=== PATIENT | male | born 1990 | race Caucasian/White ===

== ENCOUNTER 2021-04-28 15:14 | Outpatient (REF) | payer OTHER, SELFPAY ==
[2021-04-28 15:55] LABS: COVID-19 Test Negative (Negative); IDNOW Serial# 9DD0AD1C
== END 2021-04-28 15:15 | disposition home or self-care (01) ==
LOC: HO.LAB 15:14
PROVIDERS: Visit Provider Internal Medicine
DX: Z20.822 Contact with and (suspected) exposure to COVID-19 (principal)
CPT/HCPCS: 36415; 87635; C9803

== ENCOUNTER 2021-09-16 11:33 | Outpatient (REF) | payer MEDICAID, SELFPAY ==
[2021-09-16 14:06] LABS: COVID-19 Test Positive (Negative)
== END 2021-09-16 11:34 | disposition home or self-care (01) ==
LOC: HO.LAB 11:33
PROVIDERS: Visit Provider Internal Medicine
DX: Z20.822 Contact with and (suspected) exposure to COVID-19 (principal)
CPT/HCPCS: 87635; C9803

== ENCOUNTER 2023-05-12 14:19 | Emergency (ER) | payer MEDICAID, SELFPAY ==
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
[2023-05-12 14:35] VITALS: BP 138/98; PULSE 100; O2SAT 98
[2023-05-12 15:40] VITALS: BP 146/93; PULSE 102; RESP 19; TEMP 35.9; O2SAT 94; BMI 40.3
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
== END 2023-05-12 17:50 | disposition left against medical advice (07) ==
PROVIDERS: Emergency Provider Emergency Medicine
DX: Z04.1 Encounter for examination and observation following transport accident (principal)
CPT/HCPCS: 72070; 72100; 99281; 99283

== ENCOUNTER 2024-01-31 22:22 | Emergency (ER) | payer MEDICAID, SELFPAY ==
--- NOTE | ~2024-01-31 | CT_ITS ---
EXAMINATION: CT ABDOMEN AND PELVIS WITHOUT CONTRAST CLINICAL INFORMATION: Lower abdominal pain COMPARISON: None available. TECHNIQUE: Multidetector volumetric imaging was performed from the superior aspect of the liver through the pubic symphysis. Sagittal and coronal reformatted images were obtained on the technologist's workstation. This CT examination was performed using dose optimization techniques as appropriate, variously including the following: *Automated exposure control *Adjustment of mA and/or kV according to patient size (this includes techniques or standardized protocols for targeted exams where dose is matched to indication/reason for exam; i.e. extremities or head) *Use of iterative reconstruction technique DLP: 887 mGy-cm FINDINGS: LUNG BASES: The visualized lung bases are unremarkable. LIVER, GALLBLADDER, AND BILIARY TREE: The liver is enlarged measuring 18.8 cm in cephalocaudad dimension. Attenuation is heterogeneous -for example the superior portion of the left lobe measures 57 Hounsfield units while the more central portion measures 42 Hounsfield units.. Hepatic steatosis is suspected. No focal hepatic lesion or biliary ductal dilatation is present. The gallbladder is unremarkable with no evidence of radiopaque gallstones, gallbladder wall thickening, or obvious pericholecystic inflammatory changes. PANCREAS: Unremarkable. SPLEEN: Unremarkable. ADRENAL GLANDS: Nodular thickening of both adrenal glands which measured fat density consistent with adenomatous hypertrophy. No worrisome adrenal mass is present. KIDNEYS AND URETERS: The kidneys are normal in size, shape, and attenuation. No hydronephrosis, hydroureter, or calculi seen. No perinephric stranding. BLADDER: Unremarkable. GASTROINTESTINAL TRACT: There is an area of marked edematous change in the very proximal sigmoid with marked pericolonic inflammatory change in the surrounding fat. No extraluminal air is seen. No drainable collection is identified. The small and large bowel are otherwise unremarkable. The appendix is unremarkable. ABDOMINAL WALL: No significant hernia is appreciated. LYMPH NODES: Normal. VASCULAR: Unremarkable. PELVIC VISCERA: The prostate and seminal vesicles are unremarkable. OSSEOUS STRUCTURES: Unremarkable. CT/CT abdomen pelvis wo IV con IMPRESSION: 1. Acute uncomplicated sigmoid diverticulitis. 2. Incidental note made of enlarged fatty liver and adenomatous hypertrophy of the adrenal glands. Fleischner guidelines were followed.
[2024-01-31 22:34] VITALS: BP 156/108; PULSE 106; RESP 18; TEMP 37.1; O2SAT 97; BMI 40.5
[2024-01-31 22:54] LABS: MANUAL DIFF FLAG NO
[2024-01-31 22:56] LABS: Basophils Absolute Auto 0.1 X10*3/uL (0.0-0.2); Basophils Percent Auto 0.6 % (0-2); Eosinophils Absolute Auto 0.5 X10*3/uL (0.0-0.4); Eosinophils Percent Auto 3.5 % (0-4); Hematocrit 44.4 % (42.0-52.0); Hemoglobin 15.6 g/dl (14.0-18.0); Imm Gran Abs Auto 0.07 X10*3/uL (0.00-0.03); Imm Gran Pct Auto 0.5 % (0.0-0.4); Lymphocytes Percent Auto 27.1 % (20-40); Mean Corpuscular HGB Conc 35.1 g/dl (31.0-36.0); Mean Corpuscular Hemoglobin 30.2 pg (27.0-33.0); Mean Platelet Volume 8.5 fL (9.4-12.4); Monocytes Absolute Auto 0.8 X10*3/uL (0.1-1.2); Monocytes Percent Auto 5.2 % (2-11); Neutrophils Absolute Auto 9.2 x10*3/uL (2.0-8.3); Neutrophils Percent Auto 63.1 % (45-73); Platelet Count 362 X10*3/uL (160-400); Red Blood Count 5.16 X10*6/uL (4.60-5.80); White Blood Count 14.7 X10*3/uL (4.8-10.8)
[2024-01-31 23:09] LABS: Alanine Aminotransferase 25 U/L (0-40); Albumin Level 4.3 g/dL (3.5-5.0); Alkaline Phosphatase 91 U/L (39-117); Anion Gap 16 (12-20); Aspartate Amino Transferase 17 U/L (5-37); Bilirubin Direct 0.1 mg/dL (0.0-0.5); Bilirubin Total 0.3 mg/dL (0.0-1.0); Blood Urea Nitrogen 16 mg/dL (9-16); Calcium 8.9 mg/dL (8.4-10.2); Carbon Dioxide 21 mmol/L (22-29); Chloride 105 mmol/L (96-108); Creatinine Clr Calc Pharmacy 82.2; Estimated Glomerular Filt Rate 46; Glucose Random 205 mg/dL (60-115); Lipase 52 U/L (8-78); Potassium 4.1 mmol/L (3.3-5.1); Sodium 138 mmol/L (135-145); Total Protein 7.4 g/dL (6.5-8.0)
[2024-01-31] MEDS: 0.9 % Sodium Chloride 1,000 ML 999 ML IV (23:50)
--- NOTE | 2024-01-31 23:59 | ED.GENADULT ---
HPI - General Adult General Chief complaint: Abdominal Pain Stated complaint: lower abd pain Time Seen by Provider: 01/31/24 23:32 Source: patient, RN notes reviewed and old records reviewed Mode of arrival: ambulatory Limitations: no limitations History of Present Illness ED Provider: Chandu LIU narrative: 34-year-old male presents for evaluation of lower abdominal pain. Patient reports he feels constipated but does has some watery bowel movements. He states for the last 2 weeks he has had lower abdominal pain that radiates to his perineum and rectum He was seen at [address] He reports having had a prostate exam and was told his prostate is enlarged He was given Bactrim b.i.d. for 4 weeks and is in the middle of that prescription He reports that his symptoms have not improved He denies any fevers, chills He denies any history abdominal surgery Related Data Previous Rx's ?Medication ?Instructions ?Recorded amoxicillin 875 mg-potassium 1 tab PO Q12H #14 tabs 02/01/24 clavulanate 125 mg tablet Allergies Allergy/AdvReac Type Severity Reaction Status Date / Time No Known Allergies Allergy Verified 01/31/24 22:36 Review of Systems Constitutional: Constitutional: Denies body ache(s), Denies chills and Denies fever(s) Eyes: Eyes: Denies blurry vision Cardiovascular: Cardiovascular: Denies chest pain and Denies dyspnea Respiratory: Respiratory: Denies cough and Denies dyspnea Gastrointestinal: Gastrointestinal: Reports abdominal pain, Denies nausea and Denies vomiting Genitourinary: Genitourinary: Reports oliguria, Reports genital pain, Denies penile discharge, Denies scrotal swelling and Denies testicular mass Musculoskeletal: Musculoskeletal: Denies back pain [facility] Social History Social History Smoked in Last 30 Days: Yes Substance Use Type: Marijuana Substance Use Frequency: Chronic Longstanding Advance Directives: No Advance Directives Information Provided: No Do you have a plan to hurt others: No Plan Physical Exam ED Vital Signs: Vital Signs - 24 hr 01/31/24 22:34 02/01/24 00:47 Temperature 98.8 F 98.9 F Pulse Rate 106 H 113 H Respiratory Rate 18 20 Blood Pressure 156/108 H 164/97 H Pulse Oximetry 97 98 Oxygen Delivery Method Room Air Room Air BMI result Body Mass Index 40.5 Const General: healthy appearing, comfortable, no acute distress, alert and awake Nutritional Appearance: well nourished Orientation/consciousness: patient oriented x3 HENMT Head: Yes normocephalic and Yes atraumatic Eyes Eyelids: Yes eyelids normal Conjunctivae: conjunctivae normal Sclerae: sclerae normal Corneas: corneas normal Pupils: Equal, round and reactive pupils present EOM: EOMs intact bilaterally Neck Neck: Yes full ROM Resp Effort & Inspection: normal respiratory effort, able to speak in complete sentences and not labored GI Other: Soft, obese abdomen. The patient is tender in the suprapubic region and bilateral lower abdomen. Inspection: No distended Palpation (GI): Soft to palpation, not firm, Tenderness to palpation present (GI), no guarding and not rigid Skin General skin exam: elasticity normal Neuro General: patient oriented x3 Cranial nerves: Yes Equal, round and reactive pupils present and Yes Bilaterally intact EOM present Cognition (Neuro): normal cognition Extrem Other: Moving all extremities well without any obvious deformities Course Reevaluation(s) Reevaluation #1: Patient's CT scan shows acute uncomplicated sigmoid diverticulitis. This is consistent with the patient's lower abdominal pain with constipation/diarrhea. We will treat with Augmentin b.i.d. x7 days. He is encouraged to have a liquid diet, return for new or worsening symptoms Time: 00:54 Medications Administered Discontinued Medications Generic Name Dose Route Start Last Admin Trade Name Freq PRN Reason Stop Dose Admin Sodium Chloride 1,000 mls @ 999 mls/hr 01/31/24 23:45 01/31/24 23:50 Ns IV 02/01/24 00:45 999 mls/hr .Q1H1M KATE Administration Morphine Sulfate 4 mg 02/01/24 00:16 02/01/24 00:21 Morphine Sulfate 4 Mg/Ml Cartridge IVPUSH 02/01/24 00:17 4 mg ONCE ONE Administration Protocol Ondansetron HCl 4 mg 02/01/24 00:16 02/01/24 00:21 Ondansetron Hcl 4 Mg/2 Ml Vial IVPUSH 02/01/24 00:17 4 mg ONCE ONE Administration Medical Decision Making Medical Decision Making MDM Narrative: 34-year-old male presents for evaluation abdominal pain with constipation and difficulty urinating. Symptoms have been progressive for 2 weeks. Is tender in the lower abdomen. He is currently being treated for possibly prostatitis with Bactrim. He does have a leukocytosis of 14.7 K. his chemistries are significant for a creatinine to 1.70. The patient denies any known history of kidney disease. His glucose is elevated to 205 But he has no anion gap. Plan for CT abdomen pelvis to evaluate for obstructive uropathy given the elevated creatinine difficulty urinating. Less likely to be small-bowel obstruction. Prostatitis is also on the differential Differential Diagnosis Differential Diagnoses: The differential diagnosis associated with the presentation includes Obstructive uropathy Abdominal pain Constipation Bowel obstruction Dehydration BPH Admission/Observation Consideration of admission/observation: Escalation of care including admission/observation considered Considered admission for diverticulitis but the patient is not septic. He is well-appearing and able to tolerate p.o. we will discharge with oral antibiotics Lab Data MDM Lab Attestation statement: I reviewed the patient's lab results. Please see medical decision making 01/31/24 22:44 01/31/24 22:44 Labs: Lab Results 01/31/24 Range/Units 22:44 WBC 14.7 H (4.8-10.8) X10*3/uL RBC 5.16 (4.60-5.80) X10*6/uL Hgb 15.6 (14.0-18.0) g/dl Hct 44.4 (42.0-52.0) % MCV 86.0 (80.0-98.0) fL MCH 30.2 (27.0-33.0) pg MCHC 35.1 (31.0-36.0) g/dl RDW 13.0 (11.0-16.0) % Plt Count 362 (160-400) X10*3/uL MPV 8.5 L (9.4-12.4) fL Immature Gran % (Auto) 0.5 H (0.0-0.4) % Neut % (Auto) 63.1 (45-73) % Lymph % (Auto) 27.1 (20-40) % [place] % (Auto) 5.2 (2-11) % Eos % (Auto) 3.5 (0-4) % Baso % (Auto) 0.6 (0-2) % Lymph # (Auto) 4.0 (1.2-4.9) X10*3/uL [place] # (Auto) 0.8 (0.1-1.2) X10*3/uL Eos # (Auto) 0.5 H (0.0-0.4) X10*3/uL Baso # (Auto) 0.1 (0.0-0.2) X10*3/uL Abs Immat Gran (auto) 0.07 H (0.00-0.03) X10*3/uL Absolute Neuts (auto) 9.2 H (2.0-8.3) x10*3/uL Absolute Nucleated RBC 0.000 (0.0-0.012) X10*3/uL Nucleated RBC % (auto) 0.0 (0.0-0.2) /100WBC Sodium 138 (135-145) mmol/L Potassium 4.1 (3.3-5.1) mmol/L Chloride 105 (96-108) mmol/L Carbon Dioxide 21 L (22-29) mmol/L Anion Gap 16 (12-20) BUN 16 (9-16) mg/dL Creatinine 1.70 H (0.5-1.4) mg/dL Estim Creat Clear Calc 82.2 Estimated GFR 46 Random Glucose 205 H (60-115) mg/dL Calcium 8.9 (8.4-10.2) mg/dL Total Bilirubin 0.3 (0.0-1.0) mg/dL Direct Bilirubin 0.1 (0.0-0.5) mg/dL AST 17 (5-37) U/L ALT 25 (0-40) U/L Alkaline Phosphatase 91 (39-117) U/L Total Protein 7.4 (6.5-8.0) g/dL Albumin 4.3 (3.5-5.0) g/dL Lipase 52 (8-78) U/L Independent Interpretation I performed an independent interpretation of an: CT Scan (Agree with Radiology interpretation) Radiology Impression Discussion of test interpretation with radiology: I have reviewed the radiologist's reading. Radiologist Impression: Acute uncomplicated sigmoid diverticulitis Discharge Plan Discharge Clinical Impression: Abdominal pain, Diverticulitis Patient Disposition: Home, Self-Care Instructions: Diverticulitis (ED), Diverticulitis Diet (ED) Additional Instructions: Stop taking the Bactrim that you were prescribed Take Augmentin twice daily for 1 week I recommend a liquid diet for the next 1-2 days and advancing slowly as tolerated Drink lots of fluids Follow-up with your primary doctor, return for new or worsening symptoms, especially if you develop a fever or severe pain Prescriptions: New amoxicillin-pot clavulanate 875-125 mg tablet 1 tab PO Q12H Qty: 14 0RF Print Language: Citizen Of [place]
[2024-02-01] MEDS: ondansetron HCL 4 MG/2 ML VIAL IVPUSH (00:21)
[2024-02-01] MEDS: Morphine Sulfate 4 MG/ML CARTRIDGE IVPUSH (00:21)
[2024-02-01 00:47] VITALS: BP 164/97; PULSE 113; RESP 20; TEMP 37.2; O2SAT 98
[2024-02-01 00:56] LABS: Appearance Urine Clear; Color Urine Yellow; Glucose Urine UA Negative (Negative); Leukocyte Esterase Urine Negative (Negative); Nitrite Urine Negative (Negative); PH 5.5 (5.0-9.0); Urine Blood Negative (Negative); Urine Ketones Negative (Negative); Urine Protein Negative (Neg-Trace)
[2024-02-01] MEDS: Amoxicillin/Potassium Clav 875 MG TABLET PO (01:11)
[2024-02-01 01:17] VITALS: BP 160/90; PULSE 102; RESP 20; TEMP 36.8; O2SAT 98
== END 2024-02-01 01:18 | disposition home or self-care (01) ==
PROVIDERS: Emergency Provider Emergency Medicine
DX: K57.32 Diverticulitis of large intestine without perforation or abscess without bleeding (principal); R10.30 Lower abdominal pain, unspecified
CPT/HCPCS: 36415; 74176; 80048; 80076; 81003; 83690; 85025; 96361; 96374; 96375; 99284; 99285; J2270; J2405

== ENCOUNTER 2024-07-18 09:18 | Inpatient (IN) | payer MEDICAID, SELFPAY ==
--- NOTE | ~2024-07-18 | CT_ITS ---
EXAMINATION: CT ABDOMEN AND PELVIS WITH CONTRAST CLINICAL INFORMATION: Left lower quadrant pain. COMPARISON: CT dated January 31, 2024 TECHNIQUE: Multidetector volumetric images were obtained from the superior aspect of the liver through the pubic symphysis following administration 85 mL of Omnipaque 350 intravenous contrast without reported immediate complications. Sagittal and coronal reformatted images were obtained on the technologist's workstation. Oral contrast: No This CT examination was performed using dose optimization techniques as appropriate, variously including the following: *Automated exposure control *Adjustment of mA and/or kV according to patient size (this includes techniques or standardized protocols for targeted exams where dose is matched to indication/reason for exam; i.e. extremities or head) *Use of iterative reconstruction technique DLP: 867 mGy-cm FINDINGS: LUNG BASES: No acute airspace disease or pulmonary nodules in the included lungs. LIVER, GALLBLADDER, AND BILIARY TREE: Liver measures 20 cm. Decreased enhancement pattern. No focal enhancing lesion.. Portal vein, hepatic veins and intrahepatic portion of the IVC are patent. Fluid-filled gallbladder without pericholecystic fluid collection or gallbladder wall thickening. Common bile duct measures 3 mm. PANCREAS: No focal pancreatic mass. No peripancreatic fluid collection. No main pancreatic ductal dilatation. SPLEEN: 11 cm. No focal mass. ADRENAL GLANDS: 2.5 cm low density nodular lesion right adrenal gland which measures -7 Hounsfield units. 1.7 cm low density nodule in the left adrenal gland which measures -9 Hounsfield units. KIDNEYS AND URETERS: No renal mass. No hydronephrosis. Normal enhancement pattern of the renal parenchyma. BLADDER: Fluid filled and collapsed. GASTROINTESTINAL TRACT: Segmental area of pericolonic edema pattern and extra luminal air with multiple diverticula and asymmetric wall thickening involving the proximal to mid sigmoid colon. There is a small volume of free fluid in the left lower pelvic peritoneal cavity. No gross peripheral enhancing fluid collection. No intestinal obstruction pattern. Appendix is normal. Abundant stool within the large intestine. No pneumatosis intestinalis. ABDOMINAL WALL: Small tiny fat-containing umbilical hernia. LYMPH NODES: Nonspecific prominent mesenteric and retroperitoneal lymph nodes. VASCULAR: No aneurysm or dissection, abdominal aorta. PELVIC VISCERA: Normal-sized prostate gland with punctate calcifications. Seminal vesicles demonstrated normal size. OSSEOUS STRUCTURES: Multilevel thoracolumbar spondylosis resulting in grade 1 retrolisthesis L4-5 and L5-S1 on a degenerative basis. No acute fracture. Sclerosis and vacuum phenomenon and the sacroiliac joints. CT/CT abdomen pelvis w IV con IMPRESSION: Acute perforated sigmoid colon diverticulitis resulting in small amount of ascites/free fluid without peripheral enhancing fluid collection/abscess. Fleischner guidelines were followed. Electronically signed by: Dhruv Hughes MD 07/18/2024 12:49 PM EST
[2024-07-18 09:27] VITALS: BP 151/98; PULSE 91; RESP 20; TEMP 36.8; O2SAT 98; BMI 39.5
[2024-07-18 09:42] LABS: MANUAL DIFF FLAG NO
[2024-07-18 09:43] LABS: Basophils Absolute Auto 0.1 X10*3/uL (0.0-0.2); Basophils Percent Auto 0.3 % (0-2); Eosinophils Absolute Auto 0.5 X10*3/uL (0.0-0.4); Eosinophils Percent Auto 2.5 % (0-4); Hematocrit 50.8 % (42.0-52.0); Hemoglobin 17.6 g/dl (14.0-18.0); Imm Gran Abs Auto 0.07 X10*3/uL (0.00-0.03); Imm Gran Pct Auto 0.4 % (0.0-0.4); Lymphocytes Absolute Auto 2.8 X10*3/uL (1.2-4.9); Lymphocytes Percent Auto 15.4 % (20-40); Mean Corpuscular HGB Conc 34.6 g/dl (31.0-36.0); Mean Corpuscular Hemoglobin 30.1 pg (27.0-33.0); Mean Corpuscular Volume 86.8 fL (80.0-98.0); Mean Platelet Volume 8.6 fL (9.4-12.4); Monocytes Percent Auto 5.5 % (2-11); Neutrophils Absolute Auto 13.9 x10*3/uL (2.0-8.3); Neutrophils Percent Auto 75.9 % (45-73); Platelet Count 321 X10*3/uL (160-400); Red Blood Count 5.85 X10*6/uL (4.60-5.80); Red Cell Distribution Width 13.2 % (11.0-16.0); White Blood Count 18.3 X10*3/uL (4.8-10.8)
[2024-07-18 09:55] LABS: Anion Gap 11 (12-20); Blood Urea Nitrogen 15 mg/dL (9-16); Calcium 9.1 mg/dL (8.4-10.2); Carbon Dioxide 24 mmol/L (22-29); Chloride 107 mmol/L (96-108); Creatinine Clr Calc Pharmacy 143.6; Estimated Glomerular Filt Rate > 60; Glucose Random 121 mg/dL (60-115); Potassium 4.4 mmol/L (3.3-5.1); Sodium 138 mmol/L (135-145)
--- NOTE | 2024-07-18 11:52 | ED.ABDPAIN ---
HPI - Abdominal Pain General Chief Complaint: Abdominal Pain Stated Complaint: l flank pain-lower abd pain Time Seen by Provider: 07/18/24 11:48 Source: patient Limitations: no limitations History of Present Illness ED Provider: Ave de jesus PA-C HPI narrative: 34-year-old male with a history of prior diverticulitis, presents with left lower quadrant pain x1 day. Pain focal to left lower quadrant, is constant and severe. Associated diarrhea. Denies nausea, vomiting or fever. Denies sick contacts with similar symptoms. Denies dysuria, hematuria or history of kidney stones. Related Data Previous Rx's ?Medication ?Instructions ?Recorded amoxicillin 875 mg-potassium 1 tab PO Q12H #14 tabs 02/01/24 clavulanate 125 mg tablet Allergies Allergy/AdvReac Type Severity Reaction Status Date / Time No Known Allergies Allergy Verified 07/18/24 09:28 Review of Systems Review of Systems Yes all other systems are reviewed and are negative Constitutional: Denies fatigue and Denies fever(s) Gastrointestinal: Reports abdominal pain, Reports diarrhea, Denies nausea and Denies vomiting Genitourinary: Denies hematuria and Denies dysuria Endocrine: Denies fatigue [facility] Past Medical History Attestation statement: The following information was validated with the patient. Social History Social History Substance Use Type: Marijuana Advance Directives: No Advance Directives Information Provided: Yes Physical Exam ED Vital Signs: Vital Signs - 24 hr 07/18/24 09:27 07/18/24 12:29 07/18/24 16:16 Temperature 98.3 F 99.2 F 99.1 F Pulse Rate 91 93 96 Respiratory Rate 20 93 H 16 Blood Pressure 151/98 H 138/81 145/98 H Pulse Oximetry 98 97 97 Oxygen Delivery Method Room Air Room Air Room Air BMI result Body Mass Index 39.5 Const Other: Alert, appears older than stated age, appears uncomfortable Orientation/consciousness: patient oriented x3 Resp Other: Nonlabored respiration Cardio Other: Normal peripheral perfusion GI Other: Abdomen is soft, nondistended, obese, focal left lower quadrant pain that is moderate with moderate involuntary guarding Skin Other: Warm dry no rash Neuro General: patient oriented x3, no focal motor deficits and CN's II-XI intact bilaterally Psych Other: Calm cooperative Course Consultations Consultation #1: paged Dr. Chavez for consult, he is aware, he will be down to see the Pt Time: 12:57 Medical Decision Making Medical Decision Making MDM Narrative: 34-year-old male with a history of prior diverticulitis, presents with left lower quadrant pain x1 day. Pain focal to left lower quadrant, is constant and severe. Associated diarrhea. Denies nausea, vomiting or fever. Denies sick contacts with similar symptoms. Denies dysuria, hematuria or history of kidney stones. Problem: Known diverticulitis History: Per patient I have considered the following differential diagnoses: Diverticulitis, viral gastroenteritis, renal colic Plan: Given distribution of discomfort, nature of symptoms and the fact that he has a history of diverticulitis, this is likely diverticulitis. We will obtain a CT scan. Screening labs were already obtained from triage. Giving IV fluid and morphine. Thought about related pathology, i.e. renal colic, however he has no related symptoms. I have independently reviewed the following tests: Labs: Leukocytosis with left shift, not anemic, no electrolyte abnormality CT abdomen and pelvis: CT/CT abdomen pelvis w IV con IMPRESSION: Acute perforated sigmoid colon diverticulitis resulting in small amount of ascites/free fluid without peripheral enhancing fluid collection/abscess. Fleischner guidelines were followed. Electronically signed by: Dhruv Hughes MD 07/18/2024 12:49 PM [facility] Lab Data 07/18/24 09:37 07/18/24 09:37 Labs: Lab Results 07/18/24 Range/Units 09:37 WBC 18.3 H (4.8-10.8) X10*3/uL RBC 5.85 H (4.60-5.80) X10*6/uL Hgb 17.6 (14.0-18.0) g/dl Hct 50.8 (42.0-52.0) % MCV 86.8 (80.0-98.0) fL MCH 30.1 (27.0-33.0) pg MCHC 34.6 (31.0-36.0) g/dl RDW 13.2 (11.0-16.0) % Plt Count 321 (160-400) X10*3/uL MPV 8.6 L (9.4-12.4) fL Immature Gran % (Auto) 0.4 (0.0-0.4) % Neut % (Auto) 75.9 H (45-73) % Lymph % (Auto) 15.4 L (20-40) % [place] % (Auto) 5.5 (2-11) % Eos % (Auto) 2.5 (0-4) % Baso % (Auto) 0.3 (0-2) % Lymph # (Auto) 2.8 (1.2-4.9) X10*3/uL [place] # (Auto) 1.0 (0.1-1.2) X10*3/uL Eos # (Auto) 0.5 H (0.0-0.4) X10*3/uL Baso # (Auto) 0.1 (0.0-0.2) X10*3/uL Abs Immat Gran (auto) 0.07 H (0.00-0.03) X10*3/uL Absolute Neuts (auto) 13.9 H (2.0-8.3) x10*3/uL Absolute Nucleated RBC 0.000 (0.0-0.012) X10*3/uL Nucleated RBC % (auto) 0.0 (0.0-0.2) /100WBC Sodium 138 (135-145) mmol/L Potassium 4.4 (3.3-5.1) mmol/L Chloride 107 (96-108) mmol/L Carbon Dioxide 24 (22-29) mmol/L Anion Gap 11 L (12-20) BUN 15 (9-16) mg/dL Creatinine 0.96 (0.5-1.4) mg/dL Estim Creat Clear Calc 143.6 Estimated GFR > 60 Random Glucose 121 H (60-115) mg/dL Calcium 9.1 (8.4-10.2) mg/dL Medications Administered Discontinued Medications Generic Name Dose Route Start Last Admin Trade Name Freq PRN Reason Stop Dose Admin Sodium Chloride 1,000 mls @ 999 mls/hr 07/18/24 12:00 07/18/24 14:30 Ns IV 07/18/24 13:00 Infused .Q1H1M KATE Infusion Piperacillin Sod/Tazobactam 50 mls @ 100 mls/hr 07/18/24 12:58 07/18/24 14:30 Sod 3.375 gm/ Sodium Chloride IV 07/18/24 13:27 Infused ONCE ONE Infusion Iohexol 100 ml 07/18/24 12:13 07/18/24 12:14 Iohexol 350 Mg/Ml 100 Ml Infus..Btl IV 07/18/24 12:14 85 ml ONCE ONE Administration Morphine Sulfate 6 mg 07/18/24 11:51 07/18/24 12:29 Morphine Sulfate 10 Mg/Ml Cartridge IVPUSH 07/18/24 11:52 6 mg ONCE ONE Administration Protocol Morphine Sulfate 6 mg 07/18/24 13:02 07/18/24 13:09 Morphine Sulfate 10 Mg/Ml Cartridge IVPUSH 07/18/24 13:03 6 mg ONCE ONE Administration Protocol Morphine Sulfate 8 mg 07/18/24 15:42 07/18/24 16:18 Morphine Sulfate 10 Mg/Ml Cartridge IVPUSH 07/18/24 15:43 8 mg ONCE ONE Administration Protocol Discharge Plan Discharge Clinical Impression: Diverticulitis Patient Disposition: Admitted As Inpatient Print Language: [place]
[2024-07-18] MEDS: iohexoL 350 MG/ML 100 ML INFUS..BTL IV (12:14)
[2024-07-18 12:29] VITALS: BP 138/81; PULSE 93; RESP 93; TEMP 37.3; O2SAT 97
[2024-07-18] MEDS: 0.9 % Sodium Chloride 1,000 ML 999 ML IV (12:29)
[2024-07-18] MEDS: Morphine Sulfate 10 MG/ML CARTRIDGE 6 MG IVPUSH ×2 (12:29→13:09)
[2024-07-18] MEDS: Piperacillin Sodium/Tazobactam 3.375 GM in 0.9 % Sodium Chloride 50 ML IV ×2 (13:10→21:11)
--- NOTE | 2024-07-18 13:15 | PC.NURSE ---
patient presents to the ED with left sided lower abd pain, states it started last night. patient states he has hx of diverticulitis. patient states he often feels the pain is worse when he feels as if he has to have a bowel movement then nothing comes out. IV placed in the left AC #20. medicated per NOV, patient ambulates with steady gait to the bathroom
[2024-07-18 16:16] VITALS: BP 145/98; PULSE 96; RESP 16; TEMP 37.3; O2SAT 97
[2024-07-18] MEDS: Morphine Sulfate 10 MG/ML CARTRIDGE 8 MG IVPUSH (16:18)
[2024-07-18] MEDS: Lactated Ringers 1,000 ML 125 ML IVCONT (17:43)
--- NOTE | 2024-07-18 17:48 | PHA.MEDREC ---
Addendum entered by Arsalan Jefferson RPh 07/18/24 17:57: Med rec reviewed by [facility]. Original Note: Pharmacy Consult ? Medication Reconciliation Pharmacy has completed the medication reconciliation. Confirmed medications with patient and Rx bottles pt has on hand. Patient confirmed he last took his medications yesterday.
[2024-07-18 19:27] VITALS: BP 159/86; PULSE 102; RESP 20; TEMP 36.8; O2SAT 97
[2024-07-18] MEDS: HYDROmorphone HCl 1 MG/ML SYRINGE 0.5 MG IVPUSH (21:17)
[2024-07-19] MEDS: Lactated Ringers 1,000 ML 125 ML IVCONT ×3 (03:23→20:57)
[2024-07-19 04:00] VITALS: BP 141/90; PULSE 82; RESP 18; TEMP 36.2; O2SAT 96
[2024-07-19] MEDS: Piperacillin Sodium/Tazobactam 3.375 GM in 0.9 % Sodium Chloride 50 ML IV ×3 (05:14→20:15)
[2024-07-19 07:29] LABS: Basophils Absolute Auto 0.1 X10*3/uL (0.0-0.2); Basophils Percent Auto 0.3 % (0-2); Eosinophils Absolute Auto 0.2 X10*3/uL (0.0-0.4); Eosinophils Percent Auto 1.3 % (0-4); Hematocrit 43.9 % (42.0-52.0); Hemoglobin 14.9 g/dl (14.0-18.0); Imm Gran Abs Auto 0.08 X10*3/uL (0.00-0.03); Imm Gran Pct Auto 0.5 % (0.0-0.4); Lymphocytes Absolute Auto 2.6 X10*3/uL (1.2-4.9); Lymphocytes Percent Auto 17.2 % (20-40); MANUAL DIFF FLAG NO; Mean Corpuscular HGB Conc 33.9 g/dl (31.0-36.0); Mean Corpuscular Hemoglobin 29.5 pg (27.0-33.0); Mean Corpuscular Volume 86.9 fL (80.0-98.0); Mean Platelet Volume 9.2 fL (9.4-12.4); Monocytes Percent Auto 6.6 % (2-11); Neutrophils Absolute Auto 11.1 x10*3/uL (2.0-8.3); Neutrophils Percent Auto 74.1 % (45-73); Platelet Count 307 X10*3/uL (160-400); Red Blood Count 5.05 X10*6/uL (4.60-5.80); Red Cell Distribution Width 13.5 % (11.0-16.0)
[2024-07-19 07:48] VITALS: BP 145/86; PULSE 85; RESP 18; TEMP 36.1; O2SAT 98
--- NOTE | 2024-07-19 08:13 | P.HPGS_ITS ---
History of Present Illness History of Present Illness Date of Service: 07/19/24 Chief complaint: Diverticulitis Narrative: Jose Aparicio is a 34 year old male with PMH of diverticulitis who presented to the ED with complaints of abdominal pain. The pain is in the LLQ, suprapubic region. It began the day before presentation. It was sharp, constant and severe. He denies radiation of the pain. He endorses diarrhea but denies fever, chills, nausea, vomiting, dysuria, pneumaturia. Work up in the ED included CBC, BMP significant for a leukocytosis of 18.3. CT scan showed segmental area of pericolonic edema pattern and extra luminal air with multiple diverticula and asymmetric wall thickening involving the proximal to mid sigmoid colon. He reports two prior episodes of diverticulitis treated with oral antibiotics. He has never had a colonoscopy before. He reports improvement of his pain this morning. Review of Systems Constitutional: Constitutional: Denies chills and Denies fever(s) ENT: Denies dizziness Cardiovascular: Cardiovascular: Denies chest pain, Denies palpitations and Denies dyspnea Respiratory: Respiratory: Denies dyspnea Gastrointestinal: Gastrointestinal: Reports as per HPI Genitourinary: Genitourinary: Denies dysuria Integumentary/Breasts: Skin/Breast: Denies rash and Denies jaundice Neurologic: Denies dizziness Endocrine: Endocrine: Denies palpitations [facility] Surgical History Surgical History (Updated 07/19/24 @ 08:20 by Jia Barnett PA-C) Hx of tonsillectomy Social History Social History Household Members: Spouse Housing: Apartment Do you presently have visiting nurse or other home services: No Patient Tobacco Use Status: Current everyday Tobacco user Tobacco use type: Cigarette Patient Interested in Nicotine Replacement: Yes Use of substances other than those prescribed or required for medical reasons: No Substance Use Type: Marijuana Currently Displaying Signs/Symptoms of Drug Intoxication Withdrawal: No Any prior treatment program specific to substance use: No Have you been hit, kicked, punched, or otherwise hurt by someone within the past year? If so, by whom?: No Do you feel safe in your current relationship?: Yes Is there a partner from a previous relationship who is making you feel unsafe now?: No Are you made to feel afraid or neglected: No Advance Directives: No Advance Directives Information Provided: Yes Do you have a plan to hurt others: No Plan Recently lost weight without trying: No Eating poorly because of decreased appetite: No Nutrition Risks: No Nutritional Risk Meds Allergies Allergy/AdvReac Type Severity Reaction Status Date / Time No Known Allergies Allergy Verified 07/18/24 09:28 Active Medications: Current Medications Acetaminophen (Acetaminophen 325 Mg Tablet) 650 mg PO Q6H PRN PRN Reason: Pain, Mild (Pain Scale 1-3), fever or headache Calcium Carbonate (Calcium Carbonate 750 Mg Tab.Chew) 750 mg PO Q4H PRN PRN Reason: Heartburn Hydromorphone HCl (Hydromorphone Hcl 1 Mg/Ml Syringe) 0.5 mg IVPUSH Q4H PRN; Protocol PRN Reason: Pain, Severe (Pain Scale 7-10) Last Admin: 07/18/24 21:17 Dose: 0.5 mg Lactated Ringer's (Lr) 1,000 mls @ 125 mls/hr IVCONT .Q8H [facility] Last Admin: 07/19/24 03:23 Dose: 125 mls/hr Piperacillin Sod/Tazobactam (Sod 3.375 gm/ Sodium Chloride) 50 mls @ 100 mls/hr IV Q8H [facility] Last Infusion: 07/19/24 05:49 Dose: Infused Lisinopril (Lisinopril 40 Mg Tablet) 40 mg PO DAILY [facility]; Protocol Magnesium Hydroxide (Milk Of Magnesia 30 Ml Oral.Susp) 30 ml PO DAILY PRN PRN Reason: Constipation Melatonin (Melatonin 3 Mg Tablet) 6 mg PO BEDTIME PRN PRN Reason: Insomnia Metoprolol Succinate (Metoprolol Succinate Er 100 Mg Tab.Er.24h) 100 mg PO DAILY [facility]; Protocol Ondansetron HCl (Ondansetron Hcl 4 Mg/2 Ml Vial) 4 mg IVPUSH Q8H PRN PRN Reason: Nausea and Vomiting Sodium Chloride (0.9 % Sodium Chloride Flush 3 Ml Syringe) 3 ml IVFLUSH QSHIFT [facility] Last Admin: 07/19/24 07:31 Dose: Not Given Home Medications ?Medication ?Instructions ?Recorded ?Confirmed ?Last Taken ?Type lisinopril 40 mg tablet 40 mg PO DAILY 07/18/24 07/18/24 07/17/24 History metoprolol succinate 100 mg 100 mg PO DAILY 07/18/24 07/18/24 07/17/24 History tablet,extended release 24 hr Physical Exam 2 Vital Signs: Vital Signs: Last Vital Signs Temp 97.0 F 07/19/24 07:48 Pulse 85 07/19/24 07:48 Resp 18 07/19/24 07:48 BP 145/86 H 07/19/24 07:48 Pulse Ox 98 07/19/24 07:48 O2 Del Method Room Air 07/19/24 07:48 O2 Flow Rate 97 07/18/24 19:27 BMI result Body Mass Index 39.5 Const: General: comfortable, no acute distress and alert Orientation/consciousness: patient oriented x3 Neck: Neck: Yes no JVD Resp: Effort & Inspection: normal respiratory effort Cardio: Rate: regular rate GI: Other: corpulent abdomen Inspection: No distended and No scar Palpation (GI): Soft to palpation, Tenderness to palpation present (GI) (mild diffuse tenderness, moderate LLQ/suprapubic tenderness ) with no rebound tenderness, no guarding and not r igid Percussion: Yes normal to percussion Skin: General skin exam: no rashes or lesions noted Neuro: General: patient oriented x3 and moves all extremities Extrem: General: Yes no clubbing, cyanosis or edema Results Results Labs: Short CBC 07/18/24 07/19/24 Range/Units 09:37 05:04 WBC 18.3 H 15.0 H (4.8-10.8) X10*3/uL Hgb 17.6 14.9 (14.0-18.0) g/dl Hct 50.8 43.9 (42.0-52.0) % Plt Count 321 307 (160-400) X10*3/uL BMP 07/18/24 09:37 Sodium 138 Potassium 4.4 Chloride 107 Carbon Dioxide 24 BUN 15 Creatinine 0.[address] scan report/results: report reviewed and image reviewed Assessment and Plan (1) Diverticulitis: Status: Acute Plan 34 year old male with prior episodes of diverticulitis presenting with acute onset LLQ/suprapubic pain and diarrhea x1 day with leukocytosis and CT scan showing diverticulitis with small amount of extraluminal air. No gross free air on CT, few loci of air surrounding colon. No abscess. Appears to have perforation likely contained with marked surrounding inflammatory changes. He is tender in the LLQ/suprapubically however he is non toxic appearing and has no peritoneal signs. He feels improved this morning and WBC is downtrending. Will cont nonoperative measures for now with IVF, IV zosyn and clear liquids. Serial abx exams. Repeat CBC in am. Discussed if no further improvement or if he clinically worsens he will require sigmoid resection, likely ostomy. Hopefully he continues to improve but he would benefit from colonoscopy and elective sigmoid resection down the line once this acute episodes resolves. Patient comfortable with plan. Quality Stroke Does the patient have a stroke diagnosis?: No VTE Prior VTE?: No VTE Risk Level:: Surgical - low VTE Device Contraindication: Treatment Not Indicated VTE Drug Contraindication: Treatment Not Indicated Procedures Date of Service Date of Service: 07/19/24
[2024-07-19] MEDS: Metoprolol Succinate ER 100 MG TAB.ER.24H PO (08:34)
[2024-07-19] MEDS: lisinopriL 40 MG TABLET PO (08:34)
[2024-07-19] MEDS: Heparin Sodium,Porcine 5,000 UNIT/ML VIAL 5000 UNIT SUBCUT ×2 (09:50→17:21)
[2024-07-19] MEDS: Morphine Sulfate 4 MG/ML CARTRIDGE IVPUSH ×2 (12:53→20:16)
--- NOTE | 2024-07-19 15:39 | MHC.CM.PN ---
PT REPORTS HE LIVES WITH HIS AND IS INDEPENDENT WITH CARE HE HAS A BP CUFF AT HOME TO MONITOR HIS BLOOD PRESSURE AND NO OTHER DME PT HAS NO SERVICES HE IS UNSURE IF HE WANTS TO COMPLETE A HCP, DOCUMENT AND INFO PROVIDED PCP: ALANNAH ALCAZAR DCP: HOME NO SERVICES VIA PRIVATE TRANSPORT
[2024-07-19 15:45] VITALS: BP 141/75; PULSE 80; RESP 14; TEMP 37; O2SAT 98
[2024-07-19 19:25] VITALS: BP 143/76; PULSE 80; RESP 12; TEMP 36.4; O2SAT 97
[2024-07-19] MEDS: 0.9 % Sodium Chloride Flush 3 ML SYRINGE IVFLUSH (20:58)
[2024-07-20] MEDS: Heparin Sodium,Porcine 5,000 UNIT/ML VIAL 5000 UNIT SUBCUT ×3 (02:41→16:28)
[2024-07-20 03:13] VITALS: BP 141/90; PULSE 70; RESP 16; TEMP 36.4; O2SAT 97
[2024-07-20] MEDS: Lactated Ringers 1,000 ML 125 ML IVCONT ×3 (03:50→21:25)
[2024-07-20] MEDS: Piperacillin Sodium/Tazobactam 3.375 GM in 0.9 % Sodium Chloride 50 ML IV ×3 (03:59→21:21)
[2024-07-20] MEDS: Morphine Sulfate 4 MG/ML CARTRIDGE IVPUSH ×3 (04:40→21:49)
[2024-07-20 07:11] VITALS: BP 139/87; PULSE 72; RESP 16; TEMP 36.9; O2SAT 99
[2024-07-20 07:22] LABS: MANUAL DIFF FLAG NO
[2024-07-20 07:36] LABS: Basophils Absolute Auto 0.1 X10*3/uL (0.0-0.2); Basophils Percent Auto 0.7 % (0-2); Eosinophils Absolute Auto 0.5 X10*3/uL (0.0-0.4); Eosinophils Percent Auto 6.3 % (0-4); Hemoglobin 14.6 g/dl (14.0-18.0); Imm Gran Abs Auto 0.02 X10*3/uL (0.00-0.03); Imm Gran Pct Auto 0.3 % (0.0-0.4); Lymphocytes Absolute Auto 1.9 X10*3/uL (1.2-4.9); Lymphocytes Percent Auto 24.9 % (20-40); Mean Corpuscular HGB Conc 34.8 g/dl (31.0-36.0); Mean Corpuscular Hemoglobin 30.4 pg (27.0-33.0); Mean Corpuscular Volume 87.3 fL (80.0-98.0); Monocytes Absolute Auto 0.4 X10*3/uL (0.1-1.2); Monocytes Percent Auto 5.8 % (2-11); Neutrophils Absolute Auto 4.7 x10*3/uL (2.0-8.3); Platelet Count 307 X10*3/uL (160-400); Red Blood Count 4.81 X10*6/uL (4.60-5.80); Red Cell Distribution Width 13.2 % (11.0-16.0); White Blood Count 7.6 X10*3/uL (4.8-10.8)
[2024-07-20 09:03] VITALS: BP 139/87; PULSE 72
[2024-07-20] MEDS: Metoprolol Succinate ER 100 MG TAB.ER.24H PO (09:03)
[2024-07-20] MEDS: lisinopriL 40 MG TABLET PO (09:03)
--- NOTE | 2024-07-20 09:52 | PM.PNGS ---
Subjective Subjective Date of Service: 07/20/24 Interval history: feels well pain much improved passing flatus on clears Physical Exam Vital Signs: Vital Signs: Last Vital Signs Temp 98.4 F 07/20/24 07:11 Pulse 72 07/20/24 09:03 Resp 16 07/20/24 07:11 BP 139/87 07/20/24 09:03 Pulse Ox 99 07/20/24 07:11 O2 Del Method Room Air 07/20/24 07:11 O2 Flow Rate 97 07/18/24 19:27 BMI result Body Mass Index 39.5 Const: General: comfortable and no acute distress Resp: Effort & Inspection: normal respiratory effort Cardio: Rate: regular rate GI: Palpation (GI): Soft to palpation, not firm, nontender and no guarding Objective Data Active Medications Acetaminophen (Acetaminophen 325 Mg Tablet) 650 mg PO Q6H PRN PRN Reason: Pain, Mild (Pain Scale 1-3), fever or headache Calcium Carbonate (Calcium Carbonate 750 Mg Tab.Chew) 750 mg PO Q4H PRN PRN Reason: Heartburn Heparin Sodium (Porcine) (Heparin Sodium,Porcine 5,000 Unit/Ml Vial) 5,000 unit SUBCUT Q8H [facility] Last Admin: 07/20/24 09:04 Dose: 5,000 unit Documented By: AMANDA Lactated Ringer's (Lr) 1,000 mls @ 125 mls/hr IVCONT .Q8H [facility] Last Admin: 07/20/24 03:50 Dose: 125 mls/hr Documented By: MOLLY Piperacillin Sod/Tazobactam (Sod 3.375 gm/ Sodium Chloride) 50 mls @ 100 mls/hr IV Q8H [facility] Last Infusion: 07/20/24 04:29 Dose: Infused Documented By: MOLLY Lisinopril (Lisinopril 40 Mg Tablet) 40 mg PO DAILY [facility]; Protocol Last Admin: 07/20/24 09:03 Dose: 40 mg Documented By: AMANDA Magnesium Hydroxide (Milk Of Magnesia 30 Ml Oral.Susp) 30 ml PO DAILY PRN PRN Reason: Constipation Melatonin (Melatonin 3 Mg Tablet) 6 mg PO BEDTIME PRN PRN Reason: Insomnia Metoprolol Succinate (Metoprolol Succinate Er 100 Mg Tab.Er.24h) 100 mg PO DAILY [facility]; Protocol Last Admin: 07/20/24 09:03 Dose: 100 mg Documented By: AMANDA Morphine Sulfate (Morphine Sulfate 4 Mg/Ml Cartridge) 4 mg IVPUSH Q3H PRN; Protocol PRN Reason: Pain, Severe (Pain Scale 7-10) Last Admin: 07/20/24 04:40 Dose: 4 mg Documented By: MOLLY Ondansetron HCl (Ondansetron Hcl 4 Mg/2 Ml Vial) 4 mg IVPUSH Q8H PRN PRN Reason: Nausea and Vomiting Sodium Chloride (0.9 % Sodium Chloride Flush 3 Ml Syringe) 3 ml IVFLUSH QSHIFT [facility] Last Admin: 07/20/24 07:27 Dose: Not Given Documented By: AMANDA Non-Admin Reason: IV Running Labs 07/20/24 06:13 07/18/24 09:37 Labs: Laboratory Results - last 24 hr 07/20/24 06:13 MCV 87.3 MCH 30.4 MCHC 34.8 RDW 13.2 Plt Count 307 MPV 9.0 L Immature Gran % (Auto) 0.3 Neut % (Auto) 62.0 Lymph % (Auto) 24.9 [place] % (Auto) 5.8 Eos % (Auto) 6.3 H Baso % (Auto) 0.7 Lymph # (Auto) 1.9 [place] # (Auto) 0.4 Eos # (Auto) 0.5 H Baso # (Auto) 0.1 Abs Immat Gran (auto) 0.02 Absolute Neuts (auto) 4.7 Absolute Nucleated RBC 0.000 Nucleated RBC % (auto) 0.0 Procedures Date of Service Date of Service: 07/20/24 Progress Note: A&P Assessment and plan (1) Diverticulitis: Status: Acute Assessment and Plan: clinically much improved WBC normal abd soft no fever ok to try full liq IV abx Time Spent With Patient Time: Total time managing care of this patient today ____ minutes. Quality Stroke Does the patient have a stroke diagnosis?: No VTE Prior VTE?: No VTE Risk Level:: Surgical - low VTE Device Contraindication: Treatment Not Indicated VTE Drug Contraindication: Treatment Not Indicated
[2024-07-20 15:45] VITALS: BP 142/90; PULSE 71; RESP 18; TEMP 36.2; O2SAT 98
[2024-07-20 20:00] VITALS: BP 144/75; PULSE 70; RESP 18; TEMP 36.7; O2SAT 97
[2024-07-20] MEDS: 0.9 % Sodium Chloride Flush 3 ML SYRINGE IVFLUSH (21:35)
[2024-07-21] MEDS: Heparin Sodium,Porcine 5,000 UNIT/ML VIAL 5000 UNIT SUBCUT ×2 (01:20→08:08)
[2024-07-21 03:57] VITALS: BP 157/86; PULSE 67; RESP 18; TEMP 36.6; O2SAT 67
[2024-07-21] MEDS: Piperacillin Sodium/Tazobactam 3.375 GM in 0.9 % Sodium Chloride 50 ML IV (05:23)
[2024-07-21] MEDS: Lactated Ringers 1,000 ML 125 ML IVCONT (06:00)
[2024-07-21 06:58] VITALS: BP 139/87; PULSE 68; RESP 16; TEMP 36.2; O2SAT 98
[2024-07-21 08:08] VITALS: BP 139/87
[2024-07-21] MEDS: Metoprolol Succinate ER 100 MG TAB.ER.24H PO (08:08)
[2024-07-21 08:10] VITALS: BP 139/87
[2024-07-21] MEDS: lisinopriL 40 MG TABLET PO (08:10)
--- NOTE | 2024-07-21 09:47 | PM.PNGS ---
Subjective Subjective Date of Service: 07/21/24 Interval history: Continues to feel well Denies abdominal pain Tolerating full liquids Has flatus and BMs Physical Exam Vital Signs: Vital Signs: Last Vital Signs Temp 97.1 F 07/21/24 06:58 Pulse 68 07/21/24 06:58 Resp 16 07/21/24 06:58 BP 139/87 07/21/24 08:10 Pulse Ox 98 07/21/24 06:58 O2 Del Method Room Air 07/21/24 06:58 O2 Flow Rate 97 07/18/24 19:27 BMI result Body Mass Index 39.5 Const: General: comfortable and no acute distress Resp: Effort & Inspection: normal respiratory effort Cardio: Rate: regular rate GI: Palpation (GI): Soft to palpation, not firm and nontender Objective Data Active Medications Acetaminophen (Acetaminophen 325 Mg Tablet) 650 mg PO Q6H PRN PRN Reason: Pain, Mild (Pain Scale 1-3), fever or headache Calcium Carbonate (Calcium Carbonate 750 Mg Tab.Chew) 750 mg PO Q4H PRN PRN Reason: Heartburn Heparin Sodium (Porcine) (Heparin Sodium,Porcine 5,000 Unit/Ml Vial) 5,000 unit SUBCUT Q8H [facility] Last Admin: 07/21/24 08:08 Dose: 5,000 unit Documented By: AMANDA Lactated Ringer's (Lr) 1,000 mls @ 125 mls/hr IVCONT .Q8H [facility] Last Admin: 07/21/24 06:00 Dose: 125 mls/hr Documented By: MOLLY Piperacillin Sod/Tazobactam (Sod 3.375 gm/ Sodium Chloride) 50 mls @ 100 mls/hr IV Q8H [facility] Last Infusion: 07/21/24 05:57 Dose: Infused Documented By: MOLLY Lisinopril (Lisinopril 40 Mg Tablet) 40 mg PO DAILY [facility]; Protocol Last Admin: 07/21/24 08:10 Dose: 40 mg Documented By: AMANDA Magnesium Hydroxide (Milk Of Magnesia 30 Ml Oral.Susp) 30 ml PO DAILY PRN PRN Reason: Constipation Melatonin (Melatonin 3 Mg Tablet) 6 mg PO BEDTIME PRN PRN Reason: Insomnia Metoprolol Succinate (Metoprolol Succinate Er 100 Mg Tab.Er.24h) 100 mg PO DAILY [facility]; Protocol Last Admin: 07/21/24 08:08 Dose: 100 mg Documented By: AMANDA Morphine Sulfate (Morphine Sulfate 4 Mg/Ml Cartridge) 4 mg IVPUSH Q3H PRN; Protocol PRN Reason: Pain, Severe (Pain Scale 7-10) Last Admin: 07/20/24 21:49 Dose: 4 mg Documented By: MOLLY Ondansetron HCl (Ondansetron Hcl 4 Mg/2 Ml Vial) 4 mg IVPUSH Q8H PRN PRN Reason: Nausea and Vomiting Sodium Chloride (0.9 % Sodium Chloride Flush 3 Ml Syringe) 3 ml IVFLUSH QSHIFT [facility] Last Admin: 07/21/24 07:12 Dose: Not Given Documented By: AMANDA Non-Admin Reason: IV Running Labs 07/20/24 06:13 07/18/24 09:37 Procedures Date of Service Date of Service: 07/21/24 Progress Note: A&P Assessment and plan (1) Diverticulitis: Status: Acute Assessment and Plan: Clinically resolved Looks well Good GI functions Diet as tolerated Okay to DC home today PO antibiotics Follow up with Dr. Chavez Time Spent With Patient Time: Total time managing care of this patient today ____ minutes. Quality Stroke Does the patient have a stroke diagnosis?: No VTE Prior VTE?: No VTE Risk Level:: Surgical - low VTE Device Contraindication: Treatment Not Indicated VTE Drug Contraindication: Treatment Not Indicated
--- NOTE | 2024-07-21 10:00 | MHC.CM.PN ---
PT WILL DC HOME TODAY WITH NO SERVICES VIA PRIVATE TRANSPORT
--- NOTE | 2024-07-21 10:59 | PM.DS ---
DS: Providers Provider Date of Service: 07/21/24 Date of admission: 07/18/24 17:23 Date of discharge: 07/21/24 Primary care physician: LENA Chen Attending physician on admission: Cecilio Chavez Attending physician on discharge: Tony Ochoa DS: Diagnosis Discharge Diagnosis (1) Diverticulitis: Status: Acute DS: Summary Hospital Course Hospital Course: HPI AT ADMISSION: Jose Aparicio is a 34 year old male with PMH of diverticulitis who presented to the ED with complaints of abdominal pain. The pain is in the LLQ, suprapubic region. It began the day before presentation. It was sharp, constant and severe. He denies radiation of the pain. He endorses diarrhea but denies fever, chills, nausea, vomiting, dysuria, pneumaturia. Work up in the ED included CBC, BMP significant for a leukocytosis of 18.3. CT scan showed segmental area of pericolonic edema pattern and extra luminal air with multiple diverticula and asymmetric wall thickening involving the proximal to mid sigmoid colon. He reports two prior episodes of diverticulitis treated with oral antibiotics. He has never had a colonoscopy before. He reports improvement of his pain this morning. HOSPITAL COURSE: He was admitted to the surgical service for further treatment of the sigmoid diverticulitis with contained perforation. He was nontoxic appearing with a benign abd exam and felt some improvement with IV abx. Nonoperative measures were therefore continued. It was discussed he has continued improvement, he would benefit from colonoscopy and elective sigmoid resection down the line once this acute episodes resolves. He continued to improve symptomatically and clinically. His WBC count normalized. His diet was advanced slowly from clears to solids. On the day of discharge, he had no abdominal pain. His abdomen was nontender. He was hemodynamically stable. he felt ready for discharge to home. He was discharged on 07/21/24 in stable condition on a course of PO augmentin. He is to f/u in the office in 1 week to discuss colonoscopy, elective sigmoid resection. Status at Discharge Functional status at discharge: independent ambulation Overall status at discharge: patient is progressing back to baseline Time Attestation Discharge Coordination Time (in mins): 30 Quality: Safe Use of Opioids Does Pt have an Active Cancer Diagnosis on the Problem List?: No Quality: Stroke Does the patient have a stroke diagnosis?: No Physical Exam Vital Signs: Vital Signs: Last Vital Signs Temp 97.1 F 07/21/24 06:58 Pulse 68 07/21/24 06:58 Resp 16 07/21/24 06:58 BP 139/87 07/21/24 08:10 Pulse Ox 98 07/21/24 06:58 O2 Del Method Room Air 07/21/24 06:58 O2 Flow Rate 97 07/18/24 19:27 BMI result Body Mass Index 39.5 Const: General: comfortable, no acute distress and alert Orientation/consciousness: patient oriented x3 Resp: Effort & Inspection: normal respiratory effort GI: Inspection: No distended Palpation (GI): Soft to palpation and nontender Skin: General skin exam: no rashes or lesions noted Neuro: General: patient oriented x3 and moves all extremities Discharge Plan Discharge Anticipated Discharge Date/Time: 07/21/24 13:00 Patient Disposition: Home, Self-Care Discharge Diagnosis: Sigmoid diverticulitis Referrals: Missy Wan FNP [Primary Care Provider] - 1 Week Cecilio Chavez MD [Physician] - 1 Week Discharge Medications: New amoxicillin-pot clavulanate [Augmentin] 500-125 mg tablet 1 tab PO BID Qty: 20 0RF hydrocodone-acetaminophen 5-325 mg tablet 1 tab PO Q4-6H PRN (Reason: pain) Qty: 30 0RF Rx Instructions: Partial Fill upon patient request. amoxicillin-pot clavulanate 875-125 mg tablet 1 tab PO BID Qty: 20 0RF Continued metoprolol succinate 100 mg tablet extended release 24 hr 100 mg PO DAILY lisinopril 40 mg tablet 40 mg PO DAILY Discharge Orders: Discharge Order (Routine); Ordered 07/21/24 Ordered By: Toyn Ochoa Diet: Advance to usual diet Activity on Discharge: No heavy lifting Stand Alone Forms: Patient Portal Discharge page Print Language: Algerian Activity Restrictions/Additional Instructions: Follow up in office in a week. ([phone]) Call Your Doctor If: ? ? -Your temperature exceeds 101.5? F? ? ? -You experience excessive pain or swelling ? ? -You have an unexpected reaction to medication ? ? -You experience continued vomiting/nausea Care Plan Goals: Convalesce from diverticulitis Health Concerns: No new health issues Plan of Treatment: Conservative therapy with IV transitioned to oral abx colonoscopy down the line f/u in office Assessment: Stable Discharge Date/Time: 07/21/24 13:33
== END 2024-07-21 13:33 | disposition home or self-care (01) | DRG 244 ==
LOC: HO.ED 13:03 → HO.EDOVER 17:35 → HO.S3 18:45
PROVIDERS: Physician Assistant Surgical; Admitting Provider Surgery; Emergency Provider Student in an Organized Health Care Education/Training Program; PCP Registered Nurse; Visit Provider Surgery
DX: K57.20 Diverticulitis of large intestine with perforation and abscess without bleeding (principal); F17.210 Nicotine dependence, cigarettes, uncomplicated; Z71.6 Tobacco abuse counseling
CPT/HCPCS: 36415; 74177; 80048; 85025; 99285; J1171; J1644; J2270; J2543; J7120; Q9967

== ENCOUNTER → 2024-07-18 11:51 | Outpatient (BNV) | payer MEDICAID, SELFPAY | PROVIDERS: Emergency Provider Student in an Organized Health Care Education/Training Program; PCP Registered Nurse; Visit Provider Radiology Diagnostic Radiology | DX: R10.30 Lower abdominal pain, unspecified (principal) | CPT/HCPCS: 74177 ==

== ENCOUNTER → 2024-07-18 17:23 | Outpatient (BNV) | payer MEDICAID, SELFPAY | PROVIDERS: Admitting Provider Surgery; Emergency Provider Student in an Organized Health Care Education/Training Program; PCP Registered Nurse; Visit Provider Physician Assistant Surgical | DX: K57.92 Diverticulitis of intestine, part unspecified, without perforation or abscess without bleeding (principal) | CPT/HCPCS: 99222; 99232; 99238; 99499 ==

== ENCOUNTER 2024-07-29 15:59 | Outpatient (AMB) | payer MEDICAID, SELFPAY ==
--- NOTE | 2024-07-29 15:59 | A.OFFVIS_ITS ---
Vital Signs 07/29/24 16:00 Height 5 ft 10 in Weight 268 lb BMI 38.4 Intake Visit Reasons: diverticulitis with perforation Intake Note: This patient presents for [facility] [place] department follow-up for diverticulitis with perforation. Pt c/o; reports no complaints. 07/18/2024: Abd/pelvis CT Delivery Merchandiser Required: No Accompanied by: Self / Same As Patient Allergies No Known Allergies Allergy (Verified 07/29/24 16:05) HPI HPI diverticulitis with perforation: Details: 34-year-old male here for follow-up for acute diverticulitis. He was admitted to the hospital last July [address] Chavez for acute diverticulitis. His CAT scan at that time showed significant edema of the sigmoid segment along with some extraluminal air He did well with IV antibiotics. He was discharged on hospital day 3. He says he has had 2 episodes of diverticulitis in the past treated with oral antibiotics. This was his 1st admission for diverticulitis. Currently he feels well. He denies any significant GI complaints. He has never had any colonoscopy. [facility] Medical History (Updated 07/29/24 @ 16:15 by Tony Ochoa MD) Acute diverticulitis Morbid obesity Surgical History (Updated 07/19/24 @ 08:20 by Jia Barnett PA-C) Hx of tonsillectomy Social History Household Members: Spouse Housing: Apartment Do you presently have visiting nurse or other home services: No Patient Tobacco Use Status: Current everyday Tobacco user Tobacco use type: Cigarette Substance Use Type: Marijuana service: No Review of Systems Const Denies chills and Denies fever(s) Card Denies chest pain, Denies dyspnea and Denies dyspnea on exertion Resp Denies cough, Denies dyspnea and Denies dyspnea on exertion GI Denies hematochezia and Denies change in bowel habits Denies hematuria and Denies difficulty urinating Musc Denies back pain and Denies limited range of motion Neuro Denies focal weakness and Denies convulsions Psych Denies depression and Denies mood swings Physical Exam Const Other: Morbidly obese General: comfortable and no acute distress Orientation/consciousness: patient oriented x3 Neck Neck: Yes no lymphadenopathy Resp Auscultation: clear to auscultation bilaterally Cardio Rhythm: regular rhythm GI Palpation (GI): Soft to palpation, nontender and no guarding Neuro General: patient oriented x3 Assessment & Plan Assessment & Plan (1) Acute diverticulitis: Code(s): K57.92 - Diverticulitis of intestine, part unspecified, without perforation or abscess without bleeding Category: Medical Plan: He was admitted for acute diverticulitis [address] Chavez. He is doing very well at this time. He will complete his oral antibiotics tomorrow I told him that I would recommend proceeding with a colonoscopy as he has never had 1 before. He may benefit from resection down the line if he continues to have recurrent diverticulitis I will see him again in the office next month. I advised him on the benefits of weight loss. (2) Morbid obesity: Code(s): E66.01 - Morbid (severe) obesity due to excess calories Category: Medical Plan: I had a long discussion with him about the benefits of weight loss to his overall health especially with his diverticulitis. He said that he has started on his own weight loss program and has lost some 20 lb the past 2 months. Coding Level of Care Code Est Pt Level 3 (29179) Diagnoses Acute diverticulitis K57.92 Morbid obesity E66.01
[2024-07-29 16:00] VITALS: BMI 38.4
== END 2024-07-29 16:15 | disposition home or self-care (01) ==
PROVIDERS: PCP Registered Nurse; Visit Provider Surgery
DX: K57.92 Diverticulitis of intestine, part unspecified, without perforation or abscess without bleeding (principal); E66.01 Morbid (severe) obesity due to excess calories
CPT/HCPCS: 99213

== ENCOUNTER → 2024-07-29 15:59 | Outpatient (BNVA) | payer MEDICAID, SELFPAY | PROVIDERS: PCP Registered Nurse; Visit Provider Surgery | DX: E66.01 Morbid (severe) obesity due to excess calories (principal); Z87.19 Personal history of other diseases of the digestive system; Z68.38 Body mass index [BMI] 38.0-38.9, adult | CPT/HCPCS: 99212 ==

== ENCOUNTER 2024-09-20 15:27 | Outpatient (REF) | payer MEDICAID, SELFPAY ==
[2024-09-20 16:03] LABS: MANUAL DIFF FLAG NO
[2024-09-20 16:10] LABS: Basophils Absolute Auto 0.1 X10*3/uL (0.0-0.2); Basophils Percent Auto 0.6 % (0-2); Eosinophils Absolute Auto 0.4 X10*3/uL (0.0-0.4); Eosinophils Percent Auto 2.9 % (0-4); Imm Gran Abs Auto 0.05 X10*3/uL (0.00-0.03); Imm Gran Pct Auto 0.4 % (0.0-0.4); Lymphocytes Absolute Auto 4.1 X10*3/uL (1.2-4.9); Lymphocytes Percent Auto 30.5 % (20-40); Mean Corpuscular HGB Conc 34.7 g/dl (31.0-36.0); Mean Corpuscular Hemoglobin 29.6 pg (27.0-33.0); Mean Corpuscular Volume 85.4 fL (80.0-98.0); Mean Platelet Volume 8.7 fL (9.4-12.4); Monocytes Absolute Auto 0.5 X10*3/uL (0.1-1.2); Monocytes Percent Auto 3.9 % (2-11); Neutrophils Absolute Auto 8.3 x10*3/uL (2.0-8.3); Neutrophils Percent Auto 61.7 % (45-73); Platelet Count 356 X10*3/uL (160-400); Red Blood Count 5.74 X10*6/uL (4.60-5.80); Red Cell Distribution Width 13.3 % (11.0-16.0); White Blood Count 13.5 X10*3/uL (4.8-10.8)
[2024-09-20 16:39] LABS: Estimated Average Glucose 108 mg/dL; Hemoglobin A1C 150.5547 umol/L; Hemoglobin A1c % 5.4 % (<6.0); Total Hemoglobin (HGBA1C) 4293.0095 umol/L
[2024-09-20 17:08] LABS: Anion Gap 11 (12-20); Blood Urea Nitrogen 12 mg/dL (9-16); Calcium 9.2 mg/dL (8.4-10.2); Carbon Dioxide 25 mmol/L (22-29); Chloride 109 mmol/L (96-108); Cholesterol 163 mg/dL (<200); Estimated Glomerular Filt Rate > 60; Glucose Random 81 mg/dL (60-115); HDL Cholesterol 30 mg/dL (>40); LDL Cholesterol Calculated 90 mg/dL (<100); Potassium 4.2 mmol/L (3.3-5.1); Sodium 141 mmol/L (135-145); Triglycerides 219 mg/dL (<150)
[2024-09-20 17:09] LABS: TSH reflex Free T4 1.38 uIU/mL (0.32-4.0)
[2024-09-20 17:21] LABS: Microalbum/Creatinine Ratio Ur 12.7 ug/mg cr (<30)
[2024-09-21 13:19] LABS: CT PCR NOT DETECTED (Not Detect.); NG PCR NOT DETECTED (Not Detect.)
== END 2024-09-20 15:28 | disposition home or self-care (01) ==
LOC: HO.HHCL 15:27
PROVIDERS: Visit Provider Nurse Practitioner Family
DX: Z00.00 Encounter for general adult medical examination without abnormal findings (principal)
CPT/HCPCS: 36415; 80048; 80061; 82043; 82570; 83036; 84443; 85025; 87491; 87591

== ENCOUNTER 2024-09-24 13:06 | Emergency (ER) | payer MEDICAID, SELFPAY ==
--- NOTE | ~2024-09-24 | XR_ITS ---
EXAMINATION: XR CHEST CLINICAL INFORMATION: cp/exertional dyspnea COMPARISON: None available. TECHNIQUE: 2 views of the chest were obtained. FINDINGS: The cardiac, hilar, and mediastinal contours are normal. The lungs are clear bilaterally. There is no pneumothorax or pleural effusion. There is no focal osseous or soft tissue abnormality. XR/XR chest 2V IMPRESSION: No active pulmonary disease. Normal chest. Electronically signed by: Jacques Mcclelland MD 09/24/2024 02:04 PM [facility]
[2024-09-24 13:11] VITALS: BP 134/83; PULSE 84; O2SAT 98
--- NOTE | 2024-09-24 13:14 | ECG_ITS ---
Test Reason : CP Blood Pressure : */* mmHG Vent. Rate : 72 BPM Atrial Rate : 72 BPM P-R Int : 134 ms QRS Dur : 104 ms QT Int : 396 ms P-R-T Axes : 30 39 23 degrees QTcB Int : 433 ms Normal sinus rhythm Incomplete right bundle branch block Borderline ECG No previous ECGs available Referred By: Susie Borden Electronically Signed By: MYA ALMAZAN MD
[2024-09-24 13:20] VITALS: BP 127/89; PULSE 73; RESP 18; TEMP 36.8; O2SAT 99; BMI 40.6
--- NOTE | 2024-09-24 13:24 | ED_ITS ---
HPI - Chest Pain General Chief Complaint: Chest Pain Stated Complaint: CP Time Seen by Provider: 09/24/24 13:09 Source: patient, EMS, RN notes reviewed and old records reviewed Mode of arrival: EMS History of Present Illness ED Provider: Susie Borden PA-C HPI narrative: 34-year-old male with a past medical history diverticulitis, obesity, HTN, presenting to the ED via EMS from walk-in clinic complaining of elevated BP at home this morning 150/110 with chest pain while walking to clinic. also reports some exertional dyspnea. States chest pain resolved after 324 ASA and 0.4 mg of Nitro given by EMS. Denies chest pain at present. Denies headache, vision change or loss, abdominal pain, nausea /vomiting, pedal edema, recent travel Related Data Home Medications ?Medication ?Instructions ?Recorded ?Confirmed lisinopril 40 mg tablet 40 mg PO DAILY 07/18/24 07/18/24 metoprolol succinate 100 mg 100 mg PO DAILY 07/18/24 07/18/24 tablet,extended release 24 hr Previous Rx's ?Medication ?Instructions ?Recorded amoxicillin 500 mg-potassium 1 tab PO BID #20 tabs 07/19/24 clavulanate 125 mg tablet (Augmentin) hydrocodone 5 mg-acetaminophen 325 1 tab PO Q4-6H PRN pain #30 tabs 07/19/24 mg tablet amoxicillin 875 mg-potassium 1 tab PO BID #20 tabs 07/20/24 clavulanate 125 mg tablet Allergies Allergy/AdvReac Type Severity Reaction Status Date / Time No Known Allergies Allergy Verified 09/24/24 13:21 Review of Systems 2 Review of Systems: Yes all other systems are reviewed and are negative Constitutional: Constitutional: Reports as per HPI [facility] Past Medical History Attestation statement: The following information was validated with the patient. Source: old records reviewed Medical History Acute diverticulitis Morbid obesity Surgical History Hx of tonsillectomy Social History Social History Household Members: Spouse Housing: Apartment Do you presently have visiting nurse or other home services: No Patient Tobacco Use Status: Current everyday Tobacco user Tobacco use type: Cigarette Smoked in Last 30 Days: Yes Use of substances other than those prescribed or required for medical reasons: Yes Substance Use Type: Marijuana Advance Directives: No Advance Directives Information Provided: Yes service: No Physical Exam 2 Vital Signs: Vital Signs: Last Vital Signs Temp 98.4 F 09/24/24 17:17 Pulse 76 09/24/24 17:17 Resp 14 09/24/24 17:17 BP 130/78 09/24/24 17:17 Pulse Ox 98 09/24/24 17:17 O2 Del Method Room Air 09/24/24 17:17 BMI result Body Mass Index 40.6 Const: General: cooperative, healthy appearing and no acute distress O rientation/consciousness: patient oriented x3 Limitations: no limitations HEENT: Head: Yes normal to inspection and Yes atraumatic Ears: hearing grossly normal bilaterally General nose exam: Normal external nose present Face and sinus: Yes normal facial exam Eyes: General: appearance normal, both eyes and all related structures EOM: EOMs intact bilaterally Neck: Neck: Yes normal visual inspection and Yes no meningeal signs Resp: Effort & Inspection: normal respiratory effort and no respiratory distress Auscultation: clear to auscultation bilaterally, no crackles, no rales, no rhonchi and no wheezes Cardio: Rate: regular rate Heart sounds: S1 normal heart sound present and S2 normal heart sound present Skin: Rashes: no rashes Wounds: no wounds Neuro: General: patient oriented x3, tone normal and no meningeal signs C ranial nerves: Yes CN's II-XII intact bilaterally Gait exam (Neuro): Normal gait present Extrem: General: Yes normal to inspection, Yes no pedal edema and Yes no calf tenderness Course Course Course Narrative: -1700-- mild leukocytosis of 12.1. Troponin x2 negative, mi unlikely - viral testing negative. CXR unremarkable >> patient's blood pressure has remained controlled since ED arrival. Recommended close PCP follow-up and cardiology follow-up Results discussed with patient including worrisome signs and symptoms and strict return precautions, and when to return to the emergency department. They verbalized understanding and feel safe for discharge at this time. Medical Decision Making Medical Decision Making MDM Narrative: 34-year-old male with a past medical history diverticulitis, obesity, HTN, presenting to the ED via EMS from walk-in clinic complaining of elevated BP at home this morning 150/110 with chest pain while walking to clinic. Also reports some exertional dyspnea. on exam vital signs stable, NAD, nontoxic appearing, asymptomatic at present. Concern for ACS vs hypertensive urgency / emergency vs CHF. Rule out infectious etiology/viral illness. Lower suspicion for dissection or PE/ DVT Plan: EKG, labs, CXR viral studies, re-evaluate Please refer to course for remaining clinical decision making, interpretation of labs/imaging results, and discussions with consultants and/or family members. Differential Diagnosis Differential Diagnoses: The differential diagnosis associated with the presentation includes As above Admission/Observation Consideration of admission/observation: Escalation of care including admission/observation considered Lab Data MDM Lab Attestation statement: I reviewed the patient's lab results. 09/24/24 14:06 09/24/24 14:06 Labs: Lab Results 09/24/24 09/24/24 09/24/24 Range/Units 14:06 14:06 15:59 WBC 12.1 H (4.8-10.8) X10*3/uL RBC 5.71 (4.60-5.80) X10*6/uL Hgb 17.0 (14.0-18.0) g/dl Hct 49.7 (42.0-52.0) % MCV 87.0 (80.0-98.0) fL MCH 29.8 (27.0-33.0) pg MCHC 34.2 (31.0-36.0) g/dl RDW 13.4 (11.0-16.0) % Plt Count 352 (160-400) X10*3/uL MPV 8.4 L (9.4-12.4) fL Immature Gran % (Auto) 0.3 (0.0-0.4) % Neut % (Auto) 57.8 (45-73) % Lymph % (Auto) 33.7 (20-40) % [place] % (Auto) 3.7 (2-11) % Eos % (Auto) 3.8 (0-4) % Baso % (Auto) 0.7 (0-2) % Lymph # (Auto) 4.1 (1.2-4.9) X10*3/uL [place] # (Auto) 0.5 (0.1-1.2) X10*3/uL Eos # (Auto) 0.5 H (0.0-0.4) X10*3/uL Baso # (Auto) 0.1 (0.0-0.2) X10*3/uL Abs Immat Gran (auto) 0.04 H (0.00-0.03) X10*3/uL Absolute Neuts (auto) 7.0 (2.0-8.3) x10*3/uL Absolute Nucleated RBC 0.000 (0.0-0.012) X10*3/uL Nucleated RBC % (auto) 0.0 (0.0-0.2) /100WBC PT 11.5 (10.9-12.4) SEC INR 1.0 (0.9-1.1) Sodium 140 (135-145) mmol/L Potassium 4.5 (3.3-5.1) mmol/L Chloride 109 H (96-108) mmol/L Carbon Dioxide 25 (22-29) mmol/L Anion Gap 11 L (12-20) BUN 10 (9-16) mg/dL Creatinine 1.00 (0.5-1.4) mg/dL Estim Creat Clear Calc 140.0 Estimated GFR > 60 Random Glucose 84 (60-115) mg/dL Calcium 9.1 (8.4-10.2) mg/dL Magnesium 2.2 (1.6-2.6) mg/dL Total Bilirubin 0.5 (0.0-1.0) mg/dL Direct Bilirubin 0.1 (0.0-0.5) mg/dL AST 25 (5-37) U/L ALT 36 (0-40) U/L Alkaline Phosphatase 81 (39-117) U/L Troponin I High Sens < 2.7 Cancelled < 2.7 (<3.5-35.0) ng/L B-Natriuretic Peptide 19 (<100) pg/mL Total Protein 7.9 (6.5-8.0) g/dL Albumin 4.5 (3.5-5.0) g/dL Influenza Type A (PCR) NEGATIVE (Negative) Influenza Type B (PCR) NEGATIVE (Negative) RSV RNA Qual (PCR) NEGATIVE (Negative) SARS-CoV-2 RNA (RT-PCR) NEGATIVE (Negative) Independent Interpretation I performed an independent interpretation of an: EKG and Plain X-Ray Radiology Impression Discussion of test interpretation with radiology: I have reviewed the radiologist's reading. Independent Historian Clinical information obtained from an independent historian. History obtained from or confirmed by: EMS External Record Review External record reviewed: Inpatient record, Office record, Outpatient record, Prior outpatient labs, Prior outpatient radiology, Primary care record and Outside ED record Tests considered The following testing was considered but not selected: As above Prescription Management I considered prescription management with: Pain Medication Chronic Conditions Patient?s care impacted by: Hypertension Social Determinants Patient?s care significantly limited by Social Determinants of Health including: Other Social Determinant of Health Discharge Plan Discharge Clinical Impression: Chest pain, Hypertension Patient Disposition: Home, Self-Care Instructions: Chest Pain (DC), Hypertension (ED) Additional Instructions: your blood work and x-ray are reassuring You tested negative for COVID, flu & RSV Please have close follow-up with your primary care doctor Continue home prescribed medications Continue to monitor blood pressure closely If continues to be elevated, you develop constant worsening chest pain, shortness of breath, headache, weakness return to the emergency department Also follow up with cardiology. Call to make an appointment Prescriptions: No Action metoprolol succinate 100 mg tablet extended release 24 hr 100 mg PO DAILY lisinopril 40 mg tablet 40 mg PO DAILY amoxicillin-pot clavulanate [Augmentin] 500-125 mg tablet 1 tab PO BID Qty: 20 0RF hydrocodone-acetaminophen 5-325 mg tablet 1 tab PO Q4-6H PRN (Reason: pain) Qty: 30 0RF Rx Instructions: Partial Fill upon patient request. amoxicillin-pot clavulanate 875-125 mg tablet 1 tab PO BID Qty: 20 0RF Referrals: [facility] [Provider Group] Center,[facility] [Primary Care Provider] - 2 days Interventions: ED Discharge Assessment Last Done: 09/24/24 17:17 Discharge Date/Time: 09/24/24 17:18 Print Language: Hebrew
[2024-09-24 14:11] LABS: MANUAL DIFF FLAG NO
[2024-09-24 14:13] LABS: Basophils Absolute Auto 0.1 X10*3/uL (0.0-0.2); Basophils Percent Auto 0.7 % (0-2); Eosinophils Absolute Auto 0.5 X10*3/uL (0.0-0.4); Eosinophils Percent Auto 3.8 % (0-4); Hematocrit 49.7 % (42.0-52.0); Imm Gran Abs Auto 0.04 X10*3/uL (0.00-0.03); Imm Gran Pct Auto 0.3 % (0.0-0.4); Lymphocytes Absolute Auto 4.1 X10*3/uL (1.2-4.9); Lymphocytes Percent Auto 33.7 % (20-40); Mean Corpuscular HGB Conc 34.2 g/dl (31.0-36.0); Mean Corpuscular Hemoglobin 29.8 pg (27.0-33.0); Mean Platelet Volume 8.4 fL (9.4-12.4); Monocytes Absolute Auto 0.5 X10*3/uL (0.1-1.2); Monocytes Percent Auto 3.7 % (2-11); Neutrophils Percent Auto 57.8 % (45-73); Platelet Count 352 X10*3/uL (160-400); Red Blood Count 5.71 X10*6/uL (4.60-5.80); Red Cell Distribution Width 13.4 % (11.0-16.0); White Blood Count 12.1 X10*3/uL (4.8-10.8)
[2024-09-24 14:20] LABS: Prothrombin Time 11.5 SEC (10.9-12.4)
[2024-09-24 14:32] LABS: Alanine Aminotransferase 36 U/L (0-40); Albumin Level 4.5 g/dL (3.5-5.0); Alkaline Phosphatase 81 U/L (39-117); Anion Gap 11 (12-20); Aspartate Amino Transferase 25 U/L (5-37); B Type Natriuretic Peptide 19 pg/mL (<100); Bilirubin Direct 0.1 mg/dL (0.0-0.5); Bilirubin Total 0.5 mg/dL (0.0-1.0); Blood Urea Nitrogen 10 mg/dL (9-16); Calcium 9.1 mg/dL (8.4-10.2); Carbon Dioxide 25 mmol/L (22-29); Chloride 109 mmol/L (96-108); Estimated Glomerular Filt Rate > 60; Glucose Random 84 mg/dL (60-115); Magnesium 2.2 mg/dL (1.6-2.6); Potassium 4.5 mmol/L (3.3-5.1); Sodium 140 mmol/L (135-145); Total Protein 7.9 g/dL (6.5-8.0)
[2024-09-24 14:39] LABS: Troponin-I High Sensitivity < 2.7 ng/L (<3.5-35.0)
[2024-09-24 14:51] LABS: Influenza A PCR NEGATIVE (Negative); Influenza B PCR NEGATIVE (Negative); Resp Syncy Virus RNA Qual PCR NEGATIVE (Negative); SARS COV2 PCR INHOUSE NEGATIVE (Negative)
[2024-09-24 16:01] VITALS: PULSE 76; RESP 14
[2024-09-24 16:25] LABS: Troponin-I High Sensitivity < 2.7 ng/L (<3.5-35.0)
[2024-09-24 17:17] VITALS: BP 130/78; PULSE 76; RESP 14; TEMP 36.9; O2SAT 98
== END 2024-09-24 17:18 | disposition home or self-care (01) ==
PROVIDERS: Physician Assistant; Emergency Provider Emergency Medicine
DX: R07.89 Other chest pain (principal); R06.02 Shortness of breath; D72.829 Elevated white blood cell count, unspecified; I45.10 Unspecified right bundle-branch block; Z03.818 Encounter for observation for suspected exposure to other biological agents ruled out; Z79.899 Other long term (current) drug therapy
CPT/HCPCS: 0241U; 36415; 71046; 80048; 80076; 83735; 83880; 84484; 85025; 85610; 93005; 99283; 99285

== ENCOUNTER → 2024-09-24 13:14 | Outpatient (BNV) | payer MEDICAID, SELFPAY | PROVIDERS: Emergency Provider Emergency Medicine; Visit Provider Internal Medicine Cardiovascular Disease | DX: I45.10 Unspecified right bundle-branch block (principal) | CPT/HCPCS: 93010 ==

== ENCOUNTER 2024-10-13 08:11 | Emergency (ER) | payer MEDICAID, SELFPAY ==
--- NOTE | ~2024-10-13 | CT_ITS ---
CLINICAL HISTORY: diverticulitis, recent perf CT abdomen and pelvis with contrast Comparison: CT/[place]/SR - CT ABDOMEN PELVIS W IV CON - 07/18/24 12:06 EST Findings: The heart is not enlarged. Mild coronary artery calcification. The lung bases are clear. The gallbladder is again distended without evidence of wall thickening to suggest cholecystitis. Similar prominence of the common bile duct measuring up to 9 mm without evidence choledocholithiasis. Similar minimal intrahepatic biliary ductal dilation. Subcentimeter nodularity of the adrenal glands which is too small to characterize. Other abdominal solid organs are unremarkable. Tiny fat containing umbilical hernia. No bowel obstruction. Distal colonic diverticulosis. Mural thickening involving the descending and sigmoid colon with adjacent fat stranding and a small amount of fluid within the left paracolic gutter. No evidence of pneumoperitoneum or abscess. Normal appendix. Pelvic structures unremarkable. Degenerative change of the spine and hips. Bilateral sacroiliac joint erosions and sclerosis. IMPRESSION: 1. Inflammatory changes of the distal colon without evidence of perforation or abscess. While the patient does have diverticular disease involving the distal colon, differential includes segmental colitis and recommend the exclusion of inflammatory bowel disease given the bilateral sacroiliitis (enteropathic spondyloarthropathy). Other causes of sacroiliitis/spondyloarthropathy could be investigated if the patient is negative for inflammatory bowel disease. 2. Other chronic and incidental findings as above. This document has been electronically signed by: Misha Morillo DO on 10/13/2024 10:52:07
[2024-10-13 08:13] VITALS: BP 150/90; PULSE 100; O2SAT 98
[2024-10-13 08:20] VITALS: BP 135/87; PULSE 96; RESP 20; TEMP 37.1; O2SAT 96; BMI 39.9
--- NOTE | 2024-10-13 08:23 | ED.GENADULT ---
HPI - General Adult General Chief complaint: Abdominal Pain Stated complaint: L SIDED ABD PAIN Time Seen by Provider: 10/13/24 08:23 Source: patient and EMS Mode of arrival: EMS Limitations: no limitations History of Present Illness ED Provider: Cookie De Leon PA-C HPI narrative: Patient is a 34 year old assigned male at with a history of diverticulitis presenting to the emergency department today with abdominal pain and concerns of diverticulitis again. Patient states that a few months ago he was hospitalized for diverticulitis that had a micro perforation in it. Patient states that he had to have IV antibiotics and his general surgeon recommends are hemicolectomy but wants the patient to lose weight first. Patient states that this morning he woke up with left sided abdominal pain that feels similar to the last time. Patient denies any dizziness, lightheadedness, nausea, vomiting, fever, chills, blurry vision, double vision, loss of vision, chest pain, difficulty breathing, shortness of breath, back pain, night sweats, pain with urination, increased urinary frequency, increased urinary urgency, blood in his urine or stool, syncope or a near syncopal episode, recent trauma or falls, bowel incontinence, bladder incontinence, or any other complaints at this time. Onset (ago): hour(s) Location: abdomen and left Relieving factors: none Exacerbating factors: none Associated symptoms: denies other symptoms Treatments prior to arrival: none Related Data Home Medications ?Medication ?Instructions ?Recorded ?Confirmed lisinopril 40 mg tablet 40 mg PO DAILY 07/18/24 07/18/24 metoprolol succinate 100 mg 100 mg PO DAILY 07/18/24 07/18/24 tablet,extended release 24 hr Previous Rx's ?Medication ?Instructions ?Recorded amoxicillin 500 mg-potassium 1 tab PO BID #20 tabs 07/19/24 clavulanate 125 mg tablet (Augmentin) hydrocodone 5 mg-acetaminophen 325 1 tab PO Q4-6H PRN pain #30 tabs 07/19/24 mg tablet amoxicillin 875 mg-potassium 1 tab PO BID #20 tabs 07/20/24 clavulanate 125 mg tablet amoxicillin 875 mg-potassium 1 tab PO BID 7 days #14 tabs 10/13/24 clavulanate 125 mg tablet Allergies Allergy/AdvReac Type Severity Reaction Status Date / Time No Known Allergies Allergy Verified 10/13/24 08:22 Review of Systems Constitutional: Constitutional: Reports no additional constitutional complaints, Denies chills, Denies fever(s) and Denies night sweats Eyes: Eyes: Reports no additional eye complaints, Denies blurry vision, Denies change in vision, Denies diplopia, Denies eye discharge, Denies loss of vision and Denies eye pain ENT: Denies dizziness Cardiovascular: Cardiovascular: Reports no additional cardiovascular complaints, Denies chest pain, Denies lightheadedness, Denies Loss of Consciousness and Denies dyspnea Respiratory: Respiratory: Reports no additional respiratory complaints and Denies dyspnea Gastrointestinal: Gastrointestinal: Reports no additional gastrointestinal complaints, Reports abdominal pain, Denies melena, Denies hematochezia, Denies change in bowel habits, Denies change in stool character, Denies nausea and Denies vomiting Genitourinary: Genitourinary: Reports no additional male genitourinary complaints, Denies hematuria, Denies oliguria, Denies difficulty urinating, Denies dysuria, Denies urinary frequency, Denies urinary hesitancy, Denies urinary incontinence and Denies urinary urgency Musculoskeletal: Musculoskeletal: Reports no additional musculoskeletal complaints, Denies numbness and Denies tingling Neurologic: Denies dizziness, Denies loss of vision, Denies numbness and Denies tingling Psychiatric: Psychiatric: Reports no additional psychiatric complaints Endocrine: Endocrine: Reports no additional endocrine complaints Hematologic/Lymphatic: Hematologic/Lymphatic: Reports no additional hematologic/lymphatic complaints Allergic/Immunologic: Allergic/Immunologic: Reports no additional allergic/immunologic complaints FOR[facility], [facility] Past Medical History Attestation statement: The following information was validated with the patient. Source: old records reviewed and nursing notes reviewed Medical History Acute diverticulitis Morbid obesity Surgical History Hx of tonsillectomy Social History Social History Household Members: Spouse Housing: Apartment Do you presently have visiting nurse or other home services: No Patient Tobacco Use Status: Current everyday Tobacco user Tobacco use type: Cigarette Smoked in Last 30 Days: Yes Use of substances other than those prescribed or required for medical reasons: Yes Substance Use Type: Marijuana Advance Directives: No Advance Directives Information Provided: No Do you have a plan to hurt others: No Plan service: No Physical Exam ED Vital Signs: Vital Signs - 24 hr 10/13/24 08:20 10/13/24 12:14 10/13/24 12:15 Temperature 98.7 F 98.8 F 98.8 F Pulse Rate 96 89 89 Respiratory Rate 20 20 20 Blood Pressure 135/87 128/68 128/68 Pulse Oximetry 96 97 97 Oxygen Delivery Method Room Air Room Air Room Air BMI result Body Mass Index 39.9 Const General: cooperative, no acute distress, alert and awake Nutritional Appearance: well nourished Orientation/consciousness: patient oriented x3 Limitations: no limitations HENMT Head: Yes normal to inspection and Yes atraumatic Ears: hearing grossly normal bilaterally and external ears normal General nose exam: Normal external nose present, no nasal discharge noted and no epistaxis Face and sinus: Yes normal facial exam, No abrasion and No laceration Mouth: Normal oral and palatal mucosa present, no drooling and no muffled voice Eyes General: appearance normal, both eyes and all related structures Periorbital: periorbital findings normal Eyelids: Yes eyelids normal Conjunctivae: conjunctivae normal Pupils: Equal, round and reactive pupils present EOM: EOMs intact bilaterally Neck Neck: Yes normal visual inspection, Yes full ROM and Yes no lymphadenopathy Chest Chest palpation & inspection: normal inspection of the chest Resp Effort & Inspection: normal respiratory effort and able to speak in complete sentences GI Inspection: Yes normal to inspection Palpation (GI): Soft to palpation, not firm, Tenderness to palpation present (GI) in the LLQ and in the LUQ, no guarding and not rigid Neuro General: patient oriented x3, moves all extremities and CN's II-XI intact bilaterally Cranial nerves: Yes Equal, round and reactive pupils present Cognition (Neuro): normal cognition Extrem General: Yes normal to inspection, Yes full ROM and Yes capillary refill normal Psych Appearance: grossly normal Mental Status: mental status grossly normal Affect: normal affect Attitude: cooperative Thought process: Normal thought process present Thought content: Normal thought content present Insight: Good insight present (Psych) Medications Administered Discontinued Medications Generic Name Dose Route Start Last Admin Trade Name Freq PRN Reason Stop Dose Admin Hydromorphone HCl 1 mg 10/13/24 10:40 10/13/24 10:45 Hydromorphone Hcl 1 Mg/Ml Syringe IVPUSH 10/13/24 10:41 1 mg ONCE ONE Administration Protocol Iohexol 100 ml 10/13/24 09:07 10/13/24 09:07 Iohexol 350 Mg/Ml 100 Ml Infus..Btl IV 10/13/24 09:08 85 ml ONCE ONE Administration Morphine Sulfate 4 mg 10/13/24 08:33 10/13/24 08:38 Morphine Sulfate 4 Mg/Ml Cartridge IVPUSH 10/13/24 08:34 4 mg ONCE ONE Administration Protocol Ondansetron HCl 4 mg 10/13/24 08:33 10/13/24 08:39 Ondansetron Hcl 4 Mg/2 Ml Vial IVPUSH 10/13/24 08:34 4 mg ONCE ONE Administration Medical Decision Making Medical Decision Making MDM Narrative: Patient is a 34 year old assigned male at with a history of diverticulitis presenting to the emergency department today with abdominal pain and concerns of diverticulitis again. Patient's physical exam was as noted in the physical exam portion of this note. Patient's blood work showed an elevated WBC count of 16.5. Patient's CT abd/pelvis showed evidence of inflammation without specific diverticulitis however, given the patient's history and current clinical presentation, will treat as if diverticulitis. I explained my physical exam findings as well as all test results to the patient. I answered all questions asked by the patient. I stressed the importance of the patient taking his medication as directed (either prescribed or as the over the counter packaging recommends). I stressed the importance of the patient following up with his primary care provider, GI specialist, and general surgeonI. I stressed the importance of the patient returning to the emergency department immediately if his symptoms were to worsen or if he were to develop any dizziness, shortness of breath, difficulty breathing, chest pain, blurry vision, loss of vision, nausea, vomiting, abdominal pain, fever, chills, back pain, or any other complaints. Patient verbalized agreement and understanding with this treatment plan and discharge. Differential Diagnosis Differential Diagnoses: The differential diagnosis associated with the presentation includes Inflammatory bowel disease Diverticulitis Abdominal pain Colitis Admission/Observation Consideration of admission/observation: Escalation of care including admission/observation considered Patient would have been admitted to the hospital had his work up had any findings where hospital admission was appropriate and his clinical presentation warranted hospital admission. Lab Data MDM Lab Attestation statement: I reviewed the patient's lab results. My interpretation of these results are in the [facility] Rationale portion of this note. 10/13/24 08:34 10/13/24 08:34 Labs: Lab Results 10/13/24 10/13/24 Range/Units 08:34 09:13 WBC 16.5 H (4.8-10.8) X10*3/uL RBC 5.68 (4.60-5.80) X10*6/uL Hgb 17.0 (14.0-18.0) g/dl Hct 48.6 (42.0-52.0) % MCV 85.6 (80.0-98.0) fL MCH 29.9 (27.0-33.0) pg MCHC 35.0 (31.0-36.0) g/dl RDW 13.1 (11.0-16.0) % Plt Count 317 (160-400) X10*3/uL MPV 8.4 L (9.4-12.4) fL Immature Gran % (Auto) 0.4 (0.0-0.4) % Neut % (Auto) 75.1 H (45-73) % Lymph % (Auto) 16.9 L (20-40) % [place] % (Auto) 5.0 (2-11) % Eos % (Auto) 2.1 (0-4) % Baso % (Auto) 0.5 (0-2) % Lymph # (Auto) 2.8 (1.2-4.9) X10*3/uL [place] # (Auto) 0.8 (0.1-1.2) X10*3/uL Eos # (Auto) 0.3 (0.0-0.4) X10*3/uL Baso # (Auto) 0.1 (0.0-0.2) X10*3/uL Abs Immat Gran (auto) 0.07 H (0.00-0.03) X10*3/uL Absolute Neuts (auto) 12.4 H (2.0-8.3) x10*3/uL Absolute Nucleated RBC 0.000 (0.0-0.012) X10*3/uL Nucleated RBC % (auto) 0.0 (0.0-0.2) /100WBC Sodium 140 (135-145) mmol/L Potassium 4.0 (3.3-5.1) mmol/L Chloride 109 H (96-108) mmol/L Carbon Dioxide 21 L (22-29) mmol/L Anion Gap 14 (12-20) BUN 12 (9-16) mg/dL Creatinine 0.90 (0.5-1.4) mg/dL Estim Creat Clear Calc 154.2 Estimated GFR > 60 Random Glucose 121 H (60-115) mg/dL Calcium 9.4 (8.4-10.2) mg/dL Magnesium 2.0 (1.6-2.6) mg/dL Total Bilirubin 0.5 (0.0-1.0) mg/dL AST 20 (5-37) U/L ALT 32 (0-40) U/L Alkaline Phosphatase 83 (39-117) U/L Total Protein 7.5 (6.5-8.0) g/dL Albumin 4.3 (3.5-5.0) g/dL Influenza Type A (PCR) NEGATIVE (Negative) Influenza Type B (PCR) NEGATIVE (Negative) RSV RNA Qual (PCR) NEGATIVE (Negative) SARS-CoV-2 RNA (RT-PCR) NEGATIVE (Negative) Independent Interpretation I performed an independent interpretation of an: CT Scan Interpretation: My interpretation is in agreement with the radiologist's impression of this imaging study. Report Number: [id number]: Total DLP = 885.00 mGy-cm CLINICAL HISTORY: diverticulitis, recent perf CT abdomen and pelvis with contrast Comparison: CT/[place]/SR - CT ABDOMEN PELVIS W IV CON - 07/18/24 12:06 EST Findings: The heart is not enlarged. Mild coronary artery calcification. The lung bases are clear. The gallbladder is again distended without evidence of wall thickening to cholecystitis. Similar prominence of the common bile duct measuring up to 9 mm without evidence choledocholithiasis. Similar minimal intrahepatic biliary ductal dilation. Subcentimeter nodularity of the adrenal glands which is too small to characterize. Other abdominal solid organs are unremarkable. Tiny fat containing umbilical hernia. No bowel obstruction. Distal colonic diverticulosis. Mural thickening involving the descending and sigmoid colon with adjacent fat stranding and a small amount of fluid within the left paracolic gutter. No evidence of pneumoperitoneum or abscess. Normal appendix. Pelvic structures unremarkable. Degenerative change of the spine and hips. Bilateral sacroiliac joint erosions and sclerosis. IMPRESSION: 1. Inflammatory changes of the distal colon without evidence of perforation or abscess. While the patient does have diverticular disease involving the distal colon, differential includes segmental colitis and recommend the exclusion of inflammatory bowel disease given the bilateral sacroiliitis (enteropathic spondyloarthropathy). Other causes of sacroiliitis/spondyloarthropathy could be investigated if the patient is negative for inflammatory bowel disease. 2. Other chronic and incidental findings as above. This document has been electronically signed by: Misha Morillo DO on 10/13/2024 10:52:07 Dictated By: Misha Morillo MD Signed By: Electronically signed by Misha Morillo MD 10/13/24 1053 Radiology Impression Discussion of test interpretation with radiology: I have reviewed the radiologist's reading. Prescription Management I considered prescription management with: Antibiotic (patient prescribed an antibiotic for possible diverticulitis) Discharge Plan Discharge Clinical Impression: Colitis, Acute diverticulitis Patient Disposition: Home, Self-Care Instructions: Colitis (ED) Additional Instructions: Your CT scan showed evidence of inflammatory changes without evidence of perforation or abscess. It did not specifically show diverticulitis. However, given your history - I'm going to cover you with an antibiotic. Please eat a bland diet over the next week. Follow up with your primary care provider, general surgeon, and GI specialist. Proceed to the nearest emergency department immediately if your symptoms worsen or if you develop any dizziness, shortness of breath, difficulty breathing, chest pain, blurry vision, loss of vision, nausea, vomiting, abdominal pain, fever, chills, back pain, or any other complaints. Prescriptions: New amoxicillin-pot clavulanate 875-125 mg tablet 1 tab PO BID 7 Days Qty: 14 0RF No Action metoprolol succinate 100 mg tablet extended release 24 hr 100 mg PO DAILY lisinopril 40 mg tablet 40 mg PO DAILY amoxicillin-pot clavulanate [Augmentin] 500-125 mg tablet 1 tab PO BID Qty: 20 0RF hydrocodone-acetaminophen 5-325 mg tablet 1 tab PO Q4-6H PRN (Reason: pain) Qty: 30 0RF Rx Instructions: Partial Fill upon patient request. amoxicillin-pot clavulanate 875-125 mg tablet 1 tab PO BID Qty: 20 0RF Referrals: [facility] [place] Gastroenterology Services [Provider Group] (Call to establish and follow up with a GI specialist. ) [facility] [place] General Surgeons [Provider Group] (Follow up with your general surgeon.) [facility] [place] Family Medicine [Provider Group] (Call to establish and follow up with a primary care provider. If you already have a primary care provider, please follow up with them.) [facility] [place] Primary Care, [facility] [Provider Group] (Call to establish and follow up with a primary care provider. If you already have a primary care provider, please follow up with them.) [facility] [place] Primary CareB[facility]argav [Provider Group] (Call to establish and follow up with a primary care provider. If you already have a primary care provider, please follow up with them.) [facility] [place] Primary CareMarc[facility] [Provider Group] (Call to establish and follow up with a primary care provider. If you already have a primary care provider, please follow up with them.) Stand Alone Forms: Work/School Release Interventions: ED Discharge Assessment Last Done: 10/13/24 12:15 Discharge Date/Time: 10/13/24 12:15 Print Language: [place]
[2024-10-13] MEDS: Morphine Sulfate 4 MG/ML CARTRIDGE IVPUSH (08:38)
[2024-10-13 08:39] LABS: MANUAL DIFF FLAG NO
[2024-10-13] MEDS: ondansetron HCL 4 MG/2 ML VIAL IVPUSH (08:39)
[2024-10-13 08:41] LABS: Basophils Absolute Auto 0.1 X10*3/uL (0.0-0.2); Basophils Percent Auto 0.5 % (0-2); Eosinophils Absolute Auto 0.3 X10*3/uL (0.0-0.4); Eosinophils Percent Auto 2.1 % (0-4); Hematocrit 48.6 % (42.0-52.0); Imm Gran Abs Auto 0.07 X10*3/uL (0.00-0.03); Imm Gran Pct Auto 0.4 % (0.0-0.4); Lymphocytes Absolute Auto 2.8 X10*3/uL (1.2-4.9); Lymphocytes Percent Auto 16.9 % (20-40); Mean Corpuscular Hemoglobin 29.9 pg (27.0-33.0); Mean Corpuscular Volume 85.6 fL (80.0-98.0); Mean Platelet Volume 8.4 fL (9.4-12.4); Monocytes Absolute Auto 0.8 X10*3/uL (0.1-1.2); Neutrophils Absolute Auto 12.4 x10*3/uL (2.0-8.3); Neutrophils Percent Auto 75.1 % (45-73); Platelet Count 317 X10*3/uL (160-400); Red Blood Count 5.68 X10*6/uL (4.60-5.80); Red Cell Distribution Width 13.1 % (11.0-16.0); White Blood Count 16.5 X10*3/uL (4.8-10.8)
[2024-10-13 08:54] LABS: Alanine Aminotransferase 32 U/L (0-40); Albumin Level 4.3 g/dL (3.5-5.0); Alkaline Phosphatase 83 U/L (39-117); Anion Gap 14 (12-20); Aspartate Amino Transferase 20 U/L (5-37); Bilirubin Total 0.5 mg/dL (0.0-1.0); Blood Urea Nitrogen 12 mg/dL (9-16); Calcium 9.4 mg/dL (8.4-10.2); Carbon Dioxide 21 mmol/L (22-29); Chloride 109 mmol/L (96-108); Creatinine Clr Calc Pharmacy 154.2; Estimated Glomerular Filt Rate > 60; Glucose Random 121 mg/dL (60-115); Sodium 140 mmol/L (135-145); Total Protein 7.5 g/dL (6.5-8.0)
[2024-10-13] MEDS: iohexoL 350 MG/ML 100 ML INFUS..BTL IV (09:07)
[2024-10-13 09:54] LABS: Influenza A PCR NEGATIVE (Negative); Influenza B PCR NEGATIVE (Negative); Resp Syncy Virus RNA Qual PCR NEGATIVE (Negative); SARS COV2 PCR INHOUSE NEGATIVE (Negative)
[2024-10-13] MEDS: HYDROmorphone HCl 1 MG/ML SYRINGE IVPUSH (10:45)
[2024-10-13 12:14] VITALS: BP 128/68; PULSE 89; RESP 20; TEMP 37.1; O2SAT 97
[2024-10-13 12:15] VITALS: BP 128/68; PULSE 89; RESP 20; TEMP 37.1; O2SAT 97
== END 2024-10-13 12:15 | disposition home or self-care (01) ==
PROVIDERS: Physician Assistant Medical; Emergency Provider Emergency Medicine
DX: K57.32 Diverticulitis of large intestine without perforation or abscess without bleeding (principal); K52.9 Noninfective gastroenteritis and colitis, unspecified; R10.2 Pelvic and perineal pain; Z03.818 Encounter for observation for suspected exposure to other biological agents ruled out; Z79.899 Other long term (current) drug therapy
CPT/HCPCS: 0241U; 74177; 80053; 83735; 85025; 96374; 96375; 99284; J1171; J2270; J2405; Q9967

== ENCOUNTER 2024-10-23 08:54 | Outpatient (REF) | payer MEDICAID, SELFPAY ==
--- OUTSIDE RECORDS SUMMARY | 2024-10-23 09:00 | XMS_ITS | Encounter Summary ---
Author Organization [facility] Address [address] [place] [address] [address] [place] [address] Care Team Providers Care Billing Coordinator Name Role Phone Leana Isaacs Primary Care Provider [phone] Reason for Referral * Consultation (Routine) - Authorized Specialty Diagnoses / Procedures Referred By Ricardo brice Referred To Contact Pharmacy Diagnoses Tobacco use disorder Leana Isaacs FNP [address] [place] [address] Phone: tel: fax: Referral ID Status Reason Start Date Expiration Date Visits Requested Visits Authorized [id number] Authorized Consult and Treat 10/20/2024 10/20/2025 6 6 * Consultation (Routine) - Authorized Specialty Diagnoses / Procedures Referred By Ricardo brice Referred To Contact Nephrology Diagnoses Resistant hypertension Leana Isaacs FNP [address] [place] [address] Phone: tel: fax: [facility] [address], [address] [place] [address] Phone: tel: fax: Referral ID Status Reason Start Date Expiration Date Visits Requested Visits Authorized [id number] Authorized Specialty Services Required 10/20/2024 10/20/2025 6 6 Reason for Visit * Reason Comments Follow-up Encounter Details Date Type Department Care Team ([facility] Contact Info) Description 10/18/2024 10:00 AM EST Office Visit [facility] [address] [facility] [place] [id number] Leana Isaacs FNP [address] [facility] [place] [address] Resistant hypertension (Primary Dx); Erectile dysfunction, unspecified erectile dysfunction type; Tobacco use disorder; Class 2 obesity with body mass index (BMI) of 39.0 to 39.9 in adult, unspecified obesity type, unspecified whether serious comorbidity present; Anxiety and depression Social History Tobacco Use Types Packs/Day Years Used Date Smoking Tobacco: Every Day Cigarettes Passive Smoke Exposure: Current Smokeless Tobacco: Former Depression Answer Date Recorded Patient Health Questionnaire-9 Score 13 09/20/2024 Patient Health Questionnaire-9 Score 13 09/20/2024 Last PHQ-9: Questionnaire Data Not on file 0 09/20/2024 Housing Stability Answer Date Recorded What is your housing situation today? I have kristan mathews 07/22/[address] you li ve. Do you have problems with any of the following? None of the above 07/22/2024 Food Insecurity Answer Date Recorded Within the past 12 months, y ou worried that your food would run out before you got money to buy more: Never True 07/22/2024 Within the past 12 months,th e food you bought just didn't last and you didn't have enough money to get more: Never True Transportation Answer Date Recorded In the past 12 months, has l ack of transportation kept you from medical appts, meetings, work or from getting things needed for daily living? No 07/22/2024 Utilities Answer Date Recorded In the past 12 months, has t he electric, gas, oil or water company threatened to shut off services in your home? No 07/22/2024 Depression Answer Date Recorded Patient Health Questionnaire-2 Score 4 09/20/2024 Internet Access Answer Date Recorded Internet Access Q1 Yes 07/22/2024 Internet Access Q2 Not on file 07/22/2024 Sex and Gender Information Value Date Recorded Sex Assigned at Male 07/04/2022 10:39 AM EDT Legal Sex Male 10:39 AM EDT Gender Identity Male 07/04/2022 10:39 AM EDT Sexual Orientation Choose not to disclose 2021 10:39 AM EDT documented as of this encounter Last Filed Vital Signs Vital Sign Reading Time Taken Comments Blood Pressure 150/90 10/18/2024 11:04 AM EST Pulse 88 10/18/2024 10:28 AM EST Temperature 36.6 ??C (97.8 ??F) 10/18/2024 10:[address] Respiratory Rate 20 10/18/2024 10:28 AM EST Oxygen Saturation - - Inhaled Oxygen Concentration - - Weight 124 kg (272 lb 12.8 oz) 10/18/2024 10:28 AM EST Height 177.8 cm (5' 10 ) 10/18/2024 10:28 AM EST Body Mass Index 39.14 10/18/2024 10:28 AM EST documented in this encounter Progress Notes * Leana Isaacs, LENA - 10/18/2024 10:00 AM EST Subjective Jose Aparicio is a 34 y.o. male who presents to the office for follow up visit - chronic conditions. Interim history: Tobacco use: Smokes 1 pack per day. Acknowledges tobacco smoking is bad for health, interested in quitting. Depression/Anxiety: Patient acknowledges anxiety and depression. Past tragic and traumatic experiences throughout life still haunts him and keeps him awake. Reports suffering from panic attacks. Followed by therapist Uncontrolled HTN: BP remains elevated despite being on three blood pressure medications - metoprolol 100 mg, Nifedipine XL 30 and lisinopril 40 mg Current concerns: Erectile dysfunction Current Outpatient Medications Medication Sig Dispense Refill FLUoxetine (PROzac) 10 MG tablet Take 1 tablet (10 mg) by mouth Once per day. 30 tablet 0 lisinopril 40 MG tablet TAKE 1 TABLET BY MOUTH EVERY DAY IN THE MORNING 90 tablet 1 metoprolol succinate XL (Toprol-XL) 100 MG 24 hr tablet TAKE 1 TABLET BY MOUTH EVERY DAY 90 tablet 1 nicotine polacrilex (Nicorette) 4 MG gum Chew 1 each (4 mg) if needed for smoking cessation (Every 2-4 hrs prn). 100 each 1 NIFEdipine XL (Procardia XL) 60 MG 24 hr tablet Take 1 tablet (60 mg) by mouth Once per day. Do notcrush, chew, or split. 30 tablet 11 Omeprazole 20 MG tablet delayed-release Take 1 tablet (20 mg) by mouth Once per day. 30 tablet 0 Tirzepatide-Weight Management (Zepbound) 2.5 MG/0.5ML solution auto-injector Inject 0.5 mL (2.5 mg)under the skin 1 (one) time per week. 2 mL 0 No current facility-administered medications for this visit. Patient Active Problem List Diagnosis Diverticulitis of colon with perforation Tobacco use disorder Asthma Abdominal pain Back pain Diverticulitis Hypertriglyceridemia Mild intermittent asthma without complication Obesity Resistant hypertension Recurrent major depressive disorder (CMS/HCC) Dietary counseling Well adult on routine health check Anxiety and depression Gastroesophageal reflux disease Family history of colon cancer in mother Exertional chest pain Acute electrocardiogram changes Erectile dysfunction Review of Systems Constitutional: Negative for activity change and appetite change. HENT: Negative for sore throat. Eyes: Negative for pain. Respiratory: Negative for apnea, cough, chest tightness, shortness of breath and wheezing. Cardiovascular: Negative for chest pain, palpitations and leg swelling. Gastrointestinal: Negative for abdominal distention, abdominal pain and constipation. Genitourinary: Negative for difficulty urinating. Psychiatric/Behavioral: Negative for sleep disturbance and suicidal ideas. Reports anxiety and depression Objective Visit Vitals BP (!) 150/90 (BP Location: Right arm, Patient Position: Sitting, BP Cuff Size: Large adult) Pulse 88 Temp 97.8 ??F (36.6 ??C) (Oral) Resp 20 Ht 5' 10 (1.778 m) Wt 272 lb 12.8 oz (124 kg) BMI 39.14 kg/m?? Smoking Status Every Day BSA 2.47 m?? Physical Exam Vitals reviewed. Constitutional: Appearance: Normal appearance. HENT: Head: Atraumatic. Cardiovascular: Rate and Rhythm: Normal rate and regular rhythm. Pulses: Normal pulses. Heart sounds: Normal heart sounds. No murmur heard. Pulmonary: Effort: Pulmonary effort is normal. Breath sounds: Normal breath sounds. No wheezing. Neurological: Mental Status: He is alert and oriented to person, place, and time. Psychiatric: Mood and Affect: Mood normal. Behavior: Behavior normal. Assessment/Plan Problem List Items Addressed This Visit Resistant hypertension - Primary BP Readings from Last 6 Encounters: 10/18/24 (!) 150/90 09/24/24 (!) 148/98 09/20/24 (!) 156/98 08/27/24 (!) 150/92 07/23/24 (!) 158/100 01/18/24 (!) 158/108 Patient reports medication compliance. Alert and oriented with no signs of distress. Denies headache, blurry vision or weakness. On 3 BP meds metoprolol 100 mg, Nifedipine XL 30 and lisinopril 40 mg.Will discontinue Nifedipine XL 30 and start Nifedipine 60 XL . Plan Stop Nifedipine 30 XL Start Nifedipine 60 XL . Take your BP meds as prescribed. Do not change or discontinue current prescriptions without consulting health care provider Referral to gasket former Aerobic exercise daily at 30 mins daily to reduce BP and increase as tolerated. Eat heart healthy diet such as DASH. Low-sodium diet less than 2g/day to reduce BP and prevent ASCVD. Monitor and record your home BP 1-2 x day with goal of <130/88. Bring your log to the next visit Seek immediate medical attention for chest pain, palpitations, SOB, syncope, or sudden changes in mental status. Follow up in two weeks Relevant Orders Referral to Nephrology Tobacco use disorder Continues to smoke a pack a day. Interested in tobacco use cessation. Will refer to CDTM Relevant Orders Referral to Pharmacy [facility] Obesity BMI 39.14 with resistant hypertension Discussed pharmacotherapy treatment for patient w/ obesity or a patient with a BMI > 27 w/ CV risk factors who have failed lifestyle modifications alone. Educated patient Zepbound is prescribed incombination with ongoing lifestyle modification; and will be titrated up from the lowest dose. Patient not a candidate to start with phentermine/Topamax active anxiety / resistant hypertension diagnosis Will start patient on Zepbound, given know efficacy. No contraindications identified: Patient reports no hx of pancreatitis, hx of medullary thyroid cancer or MEN 2. Reviewed mechanism of action with patient. Discussed side effects with patient: nausea, vomiting, diarrhea & risk of pancreatitis. No contraindications identified: , hx of pancreatitis, hx of medullary thyroid cancer or MEN 2. Recommended to decrease soda and sugary beverage consumption. Recommended at least 20 g per meal of protein to assist with satiety. Recommended at least 150 min/week of moderate intensity exercise. Relevant Medications Tirzepatide-Weight Management (Zepbound) 2.5 MG/0.5ML solution auto-injector Anxiety and depression Patient is followed by therapist Continue to keep all appointments with your therapist Erectile dysfunction Patient reports difficulty in achieving and maintaining an erection about two years.Patient has notused any medication. 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 Will run lab work on hormones Relevant Orders FSH Sex Hormone Binding Globulin (SHBG) Prolactin, Dilution Study Testosterone, Free (Dialysis) And Total, MS LH Testosterone, Free (Dialysis) And Total, MS Testosterone, Total, males (Adult), [place] CALL CENTER REPRESENTATIVE Resident Attestation: Patient was seen and evaluated by Leana PAREDES in collaboration with Mahsa Mejia MD who has reviewed my assessment and plan. I, Mahsa Mejia MD, have reviewed the resident's note and agree with the assessment & plan of care as documented above. documented in this encounter Plan of Treatment Upcoming Encounters Date Type Department Care Team (Late st Contact Info) Description 11/01/2024 3:00 PM EST Office Visit [facility] [address] [place], [place] [phone] Leana Isaacs FNP [address] [place], [place] [id number] Scheduled Orders Name Type Priority Associated Diagnoses Orde r Schedule FSH Lab Routine Erectile dysfunction, unspecified erectile dysfunction type Expected: 10/20/2024, Expires: 10/20/2025 Sex Hormone Binding Globulin (SHBG) Lab Routine Erectile dysfunction, unspecified erectile dysfunction type Expected: 10/20/2024 (Approximate), Expires: 10/20/2025 Prolactin, Dilution Study Lab Routine Erectile dysfunction, unspecified erectile dysfunction type Expected: 10/20/2024 (Approximate), Expires: 10/20/2025 Testosterone, Free (Dialysis) And Total, MS Lab Routine Erectile dysfunction, unspecified erectile dysfunction type Expected: 10/20/2024 (Approximate), Expires: 10/20/2025 LH Lab Routine Erectile dysfunction, unspecified erectile dysfunction type Expected: 10/20/2024 (Approximate), Expires: 10/20/2025 Testosterone, Free (Dialysis) And Total, MS Lab Routine Erectile dysfunction, unspecified erectile dysfunction type Expected: 10/20/2024 (Approximate), Expires: 10/20/2025 Testosterone, Total, males (Adult), [place] Lab Routine Erectile dysfunction, unspecified erectile dysfunction type Expected: 10/20/2024, Expires: 10/20/2025 Scheduled Referrals Name Type Priority Associated Diagnoses Orde r Schedule Referral to Nephrology Outpatient Referral Routine Resistant hypertension Expected: 10/20/2024 (Approximate), Expires: 10/20/2025 Referral to Pharmacy CDTM Outpatient Referral Routine Tobacco use disorder Ordered: 10/20/2024 documented as of this encounter Visit Diagnoses Diagnosis Resistant hypertension- Primary Erectile dysfunction, unspecified erectile dysfunction type Tobacco use disorder Class 2 obesity with body mass index (BMI) of 39.0 to 39.9 in adult, unspecified obesity type, unspecified whether serious comorbidity present Anxiety and depression documented in this encounter Additional Health Concerns Assessment Noted Time PHQ-9 Depression Total Score: 13 025 2:01 PM EST documented as of this encounter Care Teams Billing Coordinator Relationship Specialty Start Date End Date Leana Isaacs FNP [address] [place] [id number] PCP - General Family Medicine 08/21/24 documented as of this encounter
--- OUTSIDE RECORDS SUMMARY | 2024-10-23 09:00 | XMS_ITS | Encounter Summary ---
Author Organization [employer] Address [address] [place] [address] Care Team Providers Care Geothermal Powerplant Mechanic Helper Name Role Phone Leana Isaacs Primary Care Provider [phone] Reason for Visit * Reason Comments Med Refill Encounter Details Date Type Department Care Team ([facility] Contact Info) Description 10/18/2024 Refill [facility] [address] [place] [address] Leana Isaacs FNP [address] [place] [address] Anxiety and depression Social History Tobacco Use [...] AM EDT documented as of this encounter Plan of Treatment Upcoming Encounters Date Type Department Care Team (Late st Contact Info) Description 11/01/2024 3:00 PM EST Office Visit [facility] [address] [place] [address] Leana Isaacs FNP [address] [place] [address] documented as of this encounter Visit Diagnoses Diagnosis Anxiety and depression documented in this encounter Additional Health Concerns Assessment Noted Time PHQ-9 Depression Total Score: 13 025 2:01 PM EST documented as of this encounter Care Teams Geothermal Powerplant Mechanic Helper Relationship Specialty Start Date End Date Leana Isaacs FNP [address] [place] [address] PCP - General Family Medicine 08/21/24 documented as of this encounter
--- OUTSIDE RECORDS SUMMARY | 2024-10-23 09:01 | XMS_ITS | Clinical Summary ---
Author Organization [facility] Address [address] [place] [address] Care Team Providers Care Manager Landscape Name Role Phone Unavailable Primary Care Provider Unavailabl e Source Comments PLEASE NOTE, if this patient is a minor, it may be UNLAWFUL to discuss sensitive information that is contained in these records (such as FAMILY PLANNING, MENTAL HEALTH or SUBSTANCE ABUSE) with the minor patient's parent or other person without the patient's specific authorization.[facility] Allergies No known active allergies Medications diclofenac sodium (VOLTAREN) [address] tablet Take 25 mg by mouth 2 (two) times daily 0 Active methocarbamoL (ROBAXIN) 750 mg tablet TAKE 1 TABLET BY MOUTH FOUR TIMES A DAY FOR MUSCLE SPASMS 0 Active hydrOXYzine HCL (ATARAX) 50 mg tabletIndications :Anxiety Take 1 Tab by mouth nightly at bedtime as needed for anxiety 30 Tab 2 0 Active acetaminophen (TYLENOL) 500 mg capsuleIndication s:Acute non intractable tension-type headache Take 1 Cap by mouth every 6 (six) hours as needed for pain 60 Cap 0 Active lisinopriL 30 mg tabletIndications :Essential hypertension Take 1 Tablet by mouth once daily 30 Tablet 5 1 Active metoprolol succinate (TOPROL-XL) 25 mg 24 hr tabletIndications :Essential hypertension TAKE 1 TABLET BY MOUTH EVERY DAY 90 Tablet 1 1 Active Active Problems Problem Noted Date Diagnosed Date Hospital discharge follow-up 03/16/2020 Essential hypertension 03/03/2020 Mild intermittent asthma without complication Cigarette smoker 09/16/2016 Hypertriglyceridemia 09/16/2016 Immunizations Name Administration Dates Next Due DTAP, UNSPECIFIED 06/22/1994, 1,1990, 0,1990 HEP B,ADULT 10/28/1997,04/08/1997,12/07/1994 Hib, unspecified 04/24/1999, 1,1990, 0 INFLUENZA, SEASONAL, INJECTABLE 09/16/2016 MMR (MMR II/Priorix) 12/07/1997,05/01/1991 PNEUMOCOCCAL POLYSACCHARIDE PPV23 09/16/2016 POLIO, UNSPECIFIED 08/30/1991, 1,1990, 0 TDAP 12/08/2013 Social History Tobacco Use Types Packs/Day Years Used Date Smoking Tobacco: Every Day Cigarettes 0 Smokeless Tobacco: Never Alcohol Use Standard Drinks/Week Comments No 0 (1 standard drink = 0.6 oz pur e alcohol) Social Connections Answer Date Recorded Social Connections and Isolation 0 04/28/2019 Financial Resource Strain Answer Date R ecorded Financial Resource Strain 0 2018 Stress Answer Date Recorded Stress 0 04/28/2019 Physical Activity Answer Date Recorded Physical Activity 0 04/28/2019 Food Insecurity Answer Date Recorded Food 0 04/28/2019 Transportation Needs Answer Date Record ed Transportation 0 04/28/2019 Housing Stability Answer Date Recorded Housing 0 04/28/2019 Safety and Environment Answer Date Julio rded Safety 0 04/28/2019 Utilities Answer Date Recorded Utilities 0 04/28/2019 Employment Answer Date Recorded Employment 0 04/28/2019 Sex and Gender Information Value Date Recorded Sex Assigned at Male 03/03/2020 2:01 PM PDT Legal Sex Male 5:22 AM PDT Gender Identity Male 03/03/2020 2:01 PM PDT Sexual Orientation Straight 03/03/2020 2: 01 PM PDT Last Filed Vital Signs Vital Sign Reading Time Taken Comments Blood Pressure 150/86 2021 3:00 PM EDT Pulse 93 2021 3:00 PM EDT Temperature 37.8 ??C (100.1 ??F) 05/28/2020 1:48 PM E DT Respiratory Rate 16 05/28/2020 1:48 PM EDT Oxygen Saturation 97% 2021 3:00 PM EDT Inhaled Oxygen Concentration - - Weight 108.9 kg (240 lb) 05/28/2020 1:48 PM EDT Height 177.8 cm (5' 10 ) 05/28/2020 1:48 PM EDT Body Mass Index 34.44 05/28/2020 1:48 PM EDT Plan of Treatment Not on file Insurance JOON COLIN [facility]
--- OUTSIDE RECORDS SUMMARY | 2024-10-23 09:01 | XMS_ITS | Encounter Summary ---
Author Organization [employer] Address [address] [facility] [address] [place] [address] Care Team Providers Care Binder And Wrapper Packer Name Role Phone Leana Isaacs Primary Care Provider [phone] Reason for Visit * Reason Onset Date Comments FYI 09/24/2024 Encounter Details Date Type Department Care Team ([facility] Contact Info) Description 09/24/2024 Telephone [facility] [address] [place] [address] Leana Isaacs FNP [address] [place] [address] FYI Social History Tobacco Use Types Packs/Day Years [...] AM EDT documented as of this encounter Miscellaneous Notes * Telephone Encounter - Telma Hannah RN - 09/24/2024 11:32 AM EST T/C placed to pt for status check based on message below. Pt denies chest pain now. Pt reports thathe has been experiencing 6.5-7/10 chest pain at night only since stopping clonidine and starting nifedipine. Reports that last episode of chest pain was last night. Reports that he did not experiencenausea, vomiting, sob or dizziness when chest pain occurred. Pt states that he is currently taking Metoprolol 100 mg daily, Lisinopril 40 mg po daily and nifedipine 30 mg po daily. Pt reports that his blood pressure continues to be high and states it was 145/108 at 10 am this morning. Pt recommended to come to [facility] today for evaluation and to seek immediate care at ED for any recurrence of chest pain. Pt reports agreement with plan. * Telephone Encounter - Susan White - 09/24/2024 10:32 AM EST Tc from pt stating since blood pressure med was switched has b/p high. Today reading was 145/110. Pt report chest pain started around 10am. Any questions [phone]. documented in this encounter Plan of Treatment Upcoming Encounters Date Type Department Care Team (Late st Contact Info) Description 11/01/2024 3:00 PM EST Office Visit [facility] [address] [place] [address] Leana Isaacs FNP [address] [place] [address] documented as of this encounter Visit Diagnoses Not on filedocumented in this encounter Additional Health Concerns Assessment Noted Time PHQ-9 Depression Total Score: 13 025 2:01 PM EST documented as of this encounter Care Teams Binder And Wrapper Packer Relationship Specialty Start Date End Date Leana Isaacs FNP [address] [place] [address] PCP - General Family Medicine 08/21/24 documented as of this encounter
--- OUTSIDE RECORDS SUMMARY | 2024-10-23 09:01 | XMS_ITS | Encounter Summary ---
Author Organization [employer] Address [address] [place] [address] Care Team Providers Care Nurse Research Name Role Phone Leana Isaacs CARDIAC RN Primary Care Provider [phone] Encounter Details Date Type Department Care Team ( Contact Info) Description 09/24/2024 Orders Only GENERIC EXTERNAL DATA DEPARTMENT Provider, Generic External Data Social History Tobacco Use Types Packs/Day Years [...] Description 11/01/2024 3:00 PM EST Office Visit [facility] [address], [place] [phone] Leana Isaacs FNP [address] [place], [place] [phone] documented as of this encounter Procedures Procedure Name Priority Date/Time Associated Diagnosis Comments HIGH SENSITIVITY TROPONIN I Routine 09/24/2024 3:59 PM EST HIGH SENSITIVITY TROPONIN I Routine 09/24/2024 2:06 PM EST SARS COV2/INFLUENZA A/B AND RSV RNA QL NAAT Routine 09/24/2024 2:06 PM EST CBC WITH AUTO DIFFERENTIAL Routine 09/24/2024 2:06 PM EST PROTHROMBIN TIME-INR Routine 09/24/2024 2:06 PM EST B TYPE NATRIURETIC PEPTIDE (BNP) Routine 09/24/2024 2:06 PM EST MAGNESIUM Routine 09/24/2024 2:06 PM EST HEPATIC FUNCTION PANEL Routine 09/24/2024 2:06 PM EST BASIC METABOLIC PANEL Routine 09/24/2024 2:06 PM EST documented in this encounter Results * High Sensitivity Troponin I (09/24/2024 3:59 PM EST) Pathologist [facility] TROPONIN I HIGH SENSITIVITY <2.7 <3.5 - 35.0 ng/L [facility] Comment:The Fuller high sens itivity Troponin-I results should beused in conjunction with other diagnostic information suchas ECG, clinical observations and information, and patientsymptoms to aid in the diagnosis of NH. 09/24/2024 3:59 PM EST 09/24/2024 4:02 PM EST Generic External Data Provider LAB BLOOD ORDERAB LES Final Result Performing Organization Address [facility] Co de Phone Number [facility] [address] [place] [phone] * SARS-CoV-2 RNA, Influenza A/B, and RSV RNA, Ql NAAT (09/24/2024 2:06 PM EST) [facility] Influenza A PCR NEGATIVE Negative [facility] Influenza B PCR NEGATIVE Negative [facility] Resp Syncy Virus RNA Qual PCR NEGATIVE Negative [facility] SARS COV2 PCR NEGATIVE Negative [facility] Comment:All test results mus t be correlated with clinical findings.Negative results do not preclude SARS-CoV2, influenza Avirus, influenza B virus and/or RSV infectionand should not be used as the sole basis for treatment orother patient management decisions. Negative results must becombined with clinical observations, patient history, andepidemiological information.This test has not been evaluated for monitoring treatment ofinfection.This test has been authorized by the FDA under an EmergencyUse Authorization (EUA) for use by authorized laboratories.Testing performed on the [employer] GeneXpert utilizingreal-time RT-PCR.All SARS CoV2 and positive influenza A/B results arereported to [facility]. 09/24/2024 2:06 PM EST 09/24/2024 2:10 PM EST Generic External Data Provider LAB MICROBIOLOGY - GENERAL ORDERABLES Final Result Performing Organization Address [facility]/ZIP Co de Phone Number [facility] [address] [place] [phone] * High Sensitivity Troponin I (09/24/2024 2:06 PM EST) [facility] TROPONIN I HIGH SENSITIVITY <2.7 <3.5 - 35.0 ng/L [facility] Comment:The Fuller high sens itivity Troponin-I results should beused in conjunction with other diagnostic information suchas ECG, clinical observations and information, and patientsymptoms to aid in the diagnosis of NH. 09/24/2024 2:06 PM EST 09/24/2024 2:10 PM EST Generic External Data Provider LAB BLOOD ORDERAB LES Final Result Performing Organization Address [facility] Co de Phone Number [facility] [address] [place] [phone] * B Type Natriuretic Peptide (BNP) (09/24/2024 2:06 PM EST) [facility] B Type Natriuretic Peptide 19 <100 pg/mL [facility] Comment:For those patients w ho are being treated with Natrecor(nesiritide, recombinant BNP), BNP testing should beperformed at least two hours post treatment in order toensure that only endogenous levels of BNP are detected. 09/24/2024 2:06 PM EST 09/24/2024 2:10 PM EST us Generic External Data Provider LAB BLOOD ORDERAB LES Final Result Performing Organization Address [facility] Co de Phone Number [facility] [address] [place] [address] [phone] * Magnesium (09/24/2024 2:06 PM EST) [facility] Magnesium 2.2 1.6 - 2.6 mg/dL [facility] 09/24/2024 2:06 PM EST 09/24/2024 2:10 PM EST us Generic External Data Provider LAB BLOOD ORDERAB LES Final Result Performing Organization Address City/[facility]/ZIP Co de Phone Number [facility] [address], [place] [phone] * (ABNORMAL) Basic Metabolic Panel (09/24/2024 2:06 PM EST) Sodium 140 135 - 145 mmol/L [facility] Potassium 4.5 3.3 - 5.1 mmol/L [facility] Chloride 109(H) 96 - 108 mmol/L [facility] Carbon Dioxide 25 22 - 29 mmol/L [facility] Anion Gap 11(L) 12 - 20 [facility] Urea Nitrogen (BUN) 10 9 - 16 mg/dL [facility] Creatinine, Serum 1.00 0.5 - 1.4 mg/dL [facility] Creatinine Clr Calc Pharmacy 140.0 [facility] Comment:eGFR (calculated fro m the MDRD study equation) and eCrCl(calculated from the Cockcroft-Gault equation) are based ondifferent parameters and may not yield comparable results.If eCrCl result is absurd, please check patient'sheight/weight. Estimated Glomerular Filt Rate >60 [facility] Comment:Chronic Kidney Disea se: Estimated GFR < 60 mL/min/1.69c3Bskrde Kidney Disease: Estimated GFR < 15 mL/min/1.73m2 Glucose 84 60 - 115 mg/dL [facility] Calcium 9.1 8.4 - 10.2 mg/dL [facility] 09/24/2024 2:06 PM EST 09/24/2024 2:10 PM EST Generic External Data Provider LAB BLOOD ORDERAB LES Final Result Performing Organization Address City/[facility]/ZIP Co de Phone Number [facility] [address], [place] [phone] * Hepatic Function Panel (09/24/2024 2:06 PM EST) Bilirubin, Total 0.5 0.0 - 1.0 mg/dL [facility] Bilirubin, Direct 0.1 0.0 - 0.5 mg/dL [facility] Aspartate Amino Transferase 25 5 - 37 U/L [facility] Alanine Aminotransferase 36 0 - 40 U/L [facility] Total Protein 7.9 6.5 - 8.0 g/dL [facility] Albumin Level 4.5 3.5 - 5.0 g/dL [facility] Alkaline Phosphatase 81 39 - 117 U/L [facility] 09/24/2024 2:06 PM EST 09/24/2024 2:10 PM EST Generic External Data Provider LAB BLOOD ORDERAB LES Final Result Performing Organization Address [facility] Phone Number [facility] [address] [place] [phone] * Prothrombin Time-INR (09/24/2024 2:06 PM EST) Prothrombin Time 11.5 10.9 - 12.4 SEC [facility] INTERNATIONAL NORM RATIO 1.0 0.9 - 1.1 [facility] Comment:INTERNATIONAL NORMAL IZED RATIO (INR) REFERENCE RANGES Reference RangeFor patients not on anticoagulant therapy: 0.9 - 1.1INR ranges for oral anticoagulanttherapy:For prevention and treatment of venous thrombosis and pulmonary embolism: 2.0 - 3.0For acute myocardial infarction with aspirin therapy: 2.0 - 3.0For acute myocardial infarction without aspirin therapy: 3.0 - 4.0For patients with mechanical prosthetic heart valves: 2.5 - 3.5 09/24/2024 2:06 PM EST 09/24/2024 2:10 PM EST [employer] External Data Provider LAB BLOOD ORDERAB LES Final Result Performing Organization Address [facility] Phone Number [facility] [address] [place] [phone] * (ABNORMAL) CBC auto differential (09/24/2024 2:06 PM EST) White Blood Count 12.1(H) 4.8 - 10.8 X10*3/uL [facility] Red Blood Count 5.71 4.60 - 5.80 X10*6/uL [facility] Hemoglobin 17.0 14.0 - 18.0 g/dl [facility] Hematocrit 49.7 42.0 - 52.0 % [facility] Mean Corpuscular Volume 87.0 80.0 - 98.0 fL [facility] Mean Corpuscular Hemoglobin 29.8 27.0 - 33.0 pg [facility] Mean Corpuscular HGB Conc 34.2 31.0 - 36.0 g/dl [facility] Red Cell Distribution Width 13.4 11.0 - 16.0 % [facility] Platelet Count 352 160 - 400 X10*3/uL [facility] Mean Platelet Volume 8.4(L) 9.4 - 12.4 fL [facility] Neutrophils Percent Auto 57.8 45 - 73 % [facility] Imm Gran Pct Auto 0.3 0.0 - 0.4 % [facility] Lymphocytes Percent Auto 33.7 20 - 40 % [facility] Monocytes Percent Auto 3.7 2 - 11 % [facility] Eosinophils Percent Auto 3.8 0 - 4 % [facility] Basophils Percent Auto 0.7 0 - 2 % [facility] NRBC Pct Auto 0.0 0.0 - 0.2 /100WBC [facility] Neutrophils Absolute Auto 7.0 2.0 - 8.3 x10*3/uL [facility] Imm Gran Abs Auto 0.04(H) 0.00 - 0.03 X10*3/uL [facility] Lymphocytes Absolute Auto 4.1 1.2 - 4.9 X10*3/uL [facility] Monocytes Absolute Auto 0.5 0.1 - 1.2 X10*3/uL [facility] Eosinophils Absolute Auto 0.5(H) 0.0 - 0.4 X10*3/uL [facility] Basophils Absolute Auto 0.1 0.0 - 0.2 X10*3/uL [facility] NRBC Abs Auto 0.000 0.0 - 0.012 X10*3/uL [facility] 09/24/2024 2:06 PM EST 09/24/2024 2:10 PM EST us Generic External Data Provider LAB BLOOD ORDERAB LES Final Result Performing Organization Address City/State/[facility] Co de Phone Number [facility] [address] [place] [phone] documented in this encounter Visit Diagnoses Not on filedocumented in this encounter Additional Health Concerns Assessment Noted Time PHQ-9 Depression Total Score: 13 025 2:01 PM EST documented as of this encounter Care Teams Nurse Research Relationship Specialty Start Date End Date Leana Isaacs FNP [address] [place] [address] PCP - General Family Medicine 08/21/24 documented as of this encounter
--- OUTSIDE RECORDS SUMMARY | 2024-10-23 09:01 | XMS_ITS | Encounter Summary ---
Author Organization [employer] Address [address] [place] [address] Care Team Providers Care Gas Welder Apprentice Name Role Phone Henrique Isaacsupe RADIOLOGICAL TECHNOLOGIST Primary Care Provider [phone] Reason for Visit * Reason Onset Date Comments Chart Prep 10/15/2024 Encounter Details Date Type Department Care Team ([facility] Contact Info) Description 10/15/2024 Telephone [facility] [address] [place] [address] Marine Matamoros MA Chart Prep Social History Tobacco Use Types Packs/Day Years [...] encounter Miscellaneous Notes * Telephone Encounter - Marine Matamoros MA - 10/15/2024 10:18 AM EST Chart Prep Labs: done Images: done Vaccines due: Covid, Tdap, Hep A, PCV20 and Flu Referrals: Gastro pending appointment, Psychiatry appointment on 10/30/24 at 10 Am Screenings: none Overdue care gaps: none documented in this encounter Plan of Treatment Upcoming Encounters Date Type Department Care Team (Late st Contact Info) Description 11/01/2024 3:00 PM EST Office Visit [facility] [address] [place] [address] Leana Isaacs FNP [address] [place] [address] documented as of this encounter Visit Diagnoses Not on filedocumented in this encounter Additional Health Concerns Assessment Noted Time PHQ-9 Depression Total Score: 13 025 2:01 PM EST documented as of this encounter Care Teams Gas Welder Apprentice Relationship Specialty Start Date End Date Leana Isaacs FNP [address] [place] [address] PCP - General Family Medicine 08/21/24 documented as of this encounter
--- OUTSIDE RECORDS SUMMARY | 2024-10-23 09:01 | XMS_ITS | Encounter Summary ---
Author Organization [employer] Address [address] [place] [address] Care Team Providers Care Extension Clerk Name Role Phone Leana Isaacs Primary Care Provider [phone] Reason for Visit * Reason Onset Date Comments Appointment Request 09/25/2024 Encounter Details Date Type Department Care Team ([facility] Contact Info) Description 09/25/2024 Telephone [facility] [address] [place] [address] Leana Isaacs FNP [address] [place] [address] Appointment Request Social History Tobacco Use Types Packs/Day Years [...] encounter Miscellaneous Notes * Telephone Encounter - Susan White - 09/25/2024 9:23 AM EST Tc from pt requesting schedule f/u b/p appt from a [facility] recent visit. [phone] documented in this encounter Plan of Treatment Upcoming Encounters Date Type Department Care Team (Late st Contact Info) Description 11/01/2024 3:00 PM EST Office Visit [facility] [address] [place] [address] Leana Isaacs FNP [address] [place] [address] documented as of this encounter Visit Diagnoses Not on filedocumented in this encounter Additional Health Concerns Assessment Noted Time PHQ-9 Depression Total Score: 13 025 2:01 PM EST documented as of this encounter Care Teams Extension Clerk Relationship Specialty Start Date End Date Leana Isaacs FNP [address] [place] [address] PCP - General Family Medicine 08/21/24 documented as of this encounter
--- OUTSIDE RECORDS SUMMARY | 2024-10-23 09:01 | XMS_ITS | Clinical Summary ---
Author Organization [employer] Address [address] [facility] [address] [place] [address] Care Team Providers Care Oil Derrick Operator Name Role Phone Leana Isaacs MAPPING SUPERVISOR Primary Care Provider [phone] Allergies Active Allergy Reactions Criticality Noted Date Comments Amlodipine Palpitations Medium 09/17/2024 Chlorthalidone 09/17/2024 Medications * This document contains information received from the source organization and may not represent a complete record from that organization. metoprolol succinate XL (Toprol-XL) 100 MG 24 hr tablet TAKE 1 TABLET BY MOUTH EVERY DAY 90 tablet 1 4 Active lisinopril 40 MG tabletIndication s:Primary hypertension TAKE 1 TABLET BY MOUTH EVERY DAY IN THE MORNING 90 tablet 1 4 Active Omeprazole 20 MG tablet delayed-releaseI ndications:Gastr oesophageal reflux disease, unspecified whether esophagitis present Take 1 tablet (20 mg) by mouth Once per day. 30 tablet 5 Active FLUoxetine (PROzac) 10 MG tabletIndication s:Anxiety and depression Take 1 tablet (10 mg) by mouth Once per day. 30 tablet 5 Active nicotine polacrilex (Nicorette) 4 MG gumIndications:T obacco use disorder Chew 1 each (4 mg) if needed for smoking cessation (Every 2-4 hrs prn). 100 each 1 5 Active NIFEdipine XL (Procardia XL) 60 MG 24 hr tablet Take 1 tablet (60 mg) by mouth Once per day. Do not crush, chew, or split. 30 tablet 11 5 10/18/19 26 Active Tirzepatide-Weig ht Management (Zepbound) 2.5 MG/0.5ML solution auto-injectorInd ications:Class 2 obesity with body mass index (BMI) of 39.0 to 39.9 in adult, unspecified obesity type, unspecified whether serious comorbidity present Inject 0.5 mL (2.5 mg) under the skin 1 (one) time per week. 2 mL 5 11/20/19 25 Active NIFEdipine XL (Procardia XL) 30 MG 24 hr tabletIndication s:Resistant hypertension Take 1 tablet (30 mg) by mouth Once per day. Do not crush, chew, or split. 30 tablet 11 5 10/18/19 25 Discontin ued(Ineff ective) Active Problems Problem Noted Date Diagnosed Date Exertional chest pain 09/24/2024 Assessment & Plan (09/24/2024 12:59 PM EST): Recent hx of nonspecific chest pain episodes. Acute onset of exertional chest pain prior to arrival. BP elevated at home and upon arrival. KG showed RBBB with inverted T wave Lead V2. Pt was sent to the ED for further cardiac work-up. Acute electrocardiogram changes 09/24/2024 Assessment & Plan (09/24/2024 12:58 PM EST): EKG showed RBBB with inverted T wave Lead V2. Pt was sent to the ED for further cardiac work-up. Dietary counseling 09/21/2024 Assessment & Plan (09/21/2024 6:38 PM EST): Plan Eat 3 meals a day, especially breakfast Eat healthy and focus on healthyfood choices daily fruits, vegetables, grains, low fat milk, low carbohydrate and fat Maintain healthy weight as this will lower your risk for many health problems. Well adult on routine health check 09/21/2024 Anxiety and depression 09/21/2024 Assessment & Plan (09/21/2024 8:00 PM EST): Positive ALINA & PHQ9 screening referral and seen by therapist Start Prozac 10 mg daily Gastroesophageal reflux disease 09/21/2024 Assessment & Plan (09/21/2024 8:41 PM EST): Epigastric pain worsen when lying down. CT analysis 03/18/20 shows upper esophagitis endoscopy was recommended. Referral to tile erector Omeprazole prescribed Avoid provocative foods: citrus, alcohol, coffee, chocolate, mints. Eat smaller meals, no eating three hours prior to bedtime Learn how to handle stress Smoking cessation Avoid drinking alcohol Family history of colon cancer in mother 025 Assessment & Plan (09/21/2024 8:43 PM EST): Mother diagnose with cancer at 42 Erectile dysfunction 09/21/2024 Assessment & Plan (10/20/2024 10:39 PM EST): >>ASSESSMENT AND PLAN FOR OTHER MALE ERECTILE DYSFUNCTION WRITTEN ON 09/21/2024 9:10 PM BY LENA DESAI Lab blood work up Recurrent major depressive disorder 09/20/2024 Asthma 09/17/2024 Abdominal pain 09/17/2024 Back pain 09/17/2024 Diverticulitis 09/17/2024 Obesity 09/17/2024 Assessment & Plan (09/21/2024 6:36 PM EST): BMI 38.97 Kg/m2 Plan Dietary counseling Exercise counseling Use of GLP 1 to be discussed at next visit Resistant hypertension 09/17/2024 Assessment & Plan (09/21/2024 7:48 PM EST): Strong family history of hypertension Pertinent negatives include no blurred vision, chest pain, headaches, malaise/fatigue, neck pain, orthopnea, palpitations, peripheral edema, PND, shortness of breath or sweats. There are no associated agents to hypertension. Risk factors for coronary artery disease include obesity, stress and sedentary lifestyle. There are no compliance problems. Clonidine worsens ED, palpitation on Amlodipine and chlorthalidone Stop clonidine, start procardia 30 mg, continue with metoprolol and lisinopril Take your meds as prescribed. Do not change or discontinue current prescriptions without consulting health care provider Aerobic exercise daily at least 30 mins daily to reduce BP and increase length of exercise as tolerated. Eat heart healthy diet such as DASH. Low-sodium diet less than 2g/day to reduce BP and prevent ASCVD. Monitor and record your home BP 1-2 x day with goal of <130/90. Bring your log to the next visit Seek immediate medical attention for chest pain, palpitations, SOB, syncope, or sudden changes in mental status. Diverticulitis of colon with perforation 024 Assessment & Plan (07/23/2024 2:48 PM EST): Some improvement, I gave him information on liquid and soft diet. Complete antibiotics x 10 days. He will schedule appointment with general surgery and fu with PCP (needs TP appt). Tobacco use disorder 09/16/2016 Assessment & Plan (09/21/2024 6:49 PM EST): Smokes 1 pack a day Patient education on smoking cessation, effects and possible negative outcome. Patient interested in cessation Nicotine gum prescribed. Use nicotine gum as prescribed Referral to pharmacy smoking cessation program to be discussed at next visit. Hypertriglyceridemia 09/16/2016 Mild intermittent asthma without complication Encounters * This document contains information received from the source organization and may not represent a complete record from that organization. Date Type Department Care Team Description 10/18/2024 10:00 AM EST Office Visit [address] [address] Leana Isaacs FNP Resistant hypertension (Primary Dx); Erectile dysfunction, unspecified erectile dysfunction type; Tobacco use disorder; Class 2 obesity with body mass index (BMI) of 39.0 to 39.9 in adult, unspecified obesity type, unspecified whether serious comorbidity present; Anxiety and depression 10/18/[address] [address] Leana Isaacs FNP Anxiety and depression 10/15/[address] [address] [place] Chart Prep 10/13/2024 Orders Only GENERIC EXTERNAL DATA DEPARTMENT Provider, Generic External Data 09/25/[address] [address] Leana Isaacs FNP Appointment Request 09/24/2024 2:20 PM EST Office Visit [facility] [address] [address] Malena Balbuena MD Exertional chest pain (Primary Dx); Acute electrocardiogram changes 09/24/2024 Orders Only GENERIC EXTERNAL DATA DEPARTMENT Provider, Generic External Data 09/24/[address] [address] Leana Isaacs FNP Nurse Triage 09/24/[address] [address] Leana Isaacs FNP FYI 09/20/2024 1:00 PM EST Office Visit [address] [address] Leana Isaacs FNP Well adult on routine health check (Primary Dx); Dietary counseling; Exercise counseling; Class 2 obesity with body mass index (BMI) of 38.0 to 38.9 in adult, unspecified obesity type, unspecified whether serious comorbidity present; Anxiety and depression; Tobacco use disorder; Resistant hypertension; Gastroesophageal reflux disease, unspecified whether esophagitis present; Family history of colon cancer in mother; Other male erectile dysfunction 09/17/[address] [address] [place] Chart Prep 09/11/2024 Patient Outreach [address] [address] Leana Isaacs FNP Pre-visit Planning (SDOH screening was completed on 07/22/2024) 08/27/2024 11:30 AM EST Clinical Support [address] [address] Telma Hannah RN Essential hypertension 08/16/[address] [address] Leana Isaacs FNP Med Refill 08/13/2024 11:00 AM EST Clinical Support [address] [address] Libby Roberts, NELIA Essential hypertension 08/13/2024 Travel 07/24/2024 Telephone [facility] [address] [place] [address] Mauro Kim MA TRANSFER PATIENT APPT 07/23/2024 10:45 AM EST Office Visit [facility] [address] [facility] [place] [address] Leanne Madera MD Diverticulitis of colon with perforation (Primary Dx); Essential hypertension 07/23/2024 Travel from Last 3 Months Immunizations Name Administration Dates Next Due DTaP, Unspecified 06/22/1994, 1,1990,05/09/19 90,1990 Hep B, Unspecified 10/28/1997,04/08/1997, 995 Hep B, adult 10/28/1997,04/08/1997,12/07/1994 HiB, unspecified 04/24/1999, 1,1990,03/01/19 90 Influenza, IIV3, injectable 09/16/2016 MMR 12/07/1997,05/01/1991 Pneumococcal Polysaccharide PPSV23 09/16/2016 Polio, Unspecified 08/30/1991, 1,1990,03/01/19 90 Tdap 12/08/2013 Family History Medical History Relation Name Comments Hypertension Brother Hypertension Father Lung cancer Father Colon cancer Mother Diabetes Mother Heart attack Mother Hypertension Mother Hypertension Sister Relation Name Status Comments Brother Father Mother Sister Social History Tobacco Use Types Packs/Day Years Used Date Smoking Tobacco: Every Day Cigarettes Passive Smoke Exposure: Current Smokeless Tobacco: Former Tobacco Cessation:Ready to Q uit: Not Asked; Counseling Given: Not Answered Depression Answer Date Recorded Patient Health Questionnaire-9 Score 13 09/20/2024 Patient Health Questionnaire-9 Score 13 09/20/2024 Last PHQ-9: Questionnaire Data Not on file 0 09/20/2024 Housing Stability Answer Date Recorded What is your housing situation today? I have kristannikos mathews 07/22/[address] you [...] not to disclose 2021 10:39 AM EDT Last Filed Vital Signs Vital Sign Reading Time Taken Comments Blood Pressure 150/90 10/18/2024 11:04 AM EST Pulse 88 10/18/2024 10:28 AM EST Temperature 36.6 ??C (97.8 ??F) 10/18/2024 10:[address] Respiratory Rate 20 10/18/2024 10:28 AM EST Oxygen Saturation 98% 09/24/2024 12:35 PM EST RA Inhaled Oxygen Concentration - - Weight 124 kg (272 lb 12.8 oz) 10/18/2024 10:28 AM EST Height 177.8 cm (5' 10 ) 10/18/2024 10:28 AM EST Body Mass Index 39.14 10/18/2024 10:28 AM EST Plan of Treatment Upcoming Encounters Date Type Department Care Team (Late st Contact Info) Description 11/01/2024 3:00 PM EST Office Visit [facility] [address] [place] [address] Leana Isaacs FNP [address] [place] [address] Health Maintenance Due Date Last Done Comments Family Planning (PISQ) 2005 Hepatitis A Vaccines (1 of 2 - Risk 2-dose series) 2009 Pneumococcal Vaccine: Pediatrics (0 to 5 Years) and At-Risk Patients (6 to 49) Years) (2 of 2 - PCV) 09/16/2017 09/16/2016 DTaP/Tdap/Td Vaccines (7 - Td or Tdap) 12/09/2023 12/08/2013, 06/22/1994, 08/30/1991, Additional history exists COVID-19 Vaccine ( - season) 2024 Influenza Vaccine (#1) 2024 09/16/2016 Depression Monitoring (PHQ-9) 03/20/2025 09/20/2024, 09/20/2024 Alcohol/Substance Use Screening 09/20/2025 09/20/2024 Depression Screening 09/20/2025 09/20/2024, 09/20/19 SDOH Screening 09/20/2025 09/20/2024 Tobacco Screening 10/18/2025 10/18/2024 Lipid Panel 09/20/2029 09/20/2024, 07/28/2021 Zoster Vaccines (1 of 2) 01/23/2040 RSV Patients and Patients Aged 60 years or older (1 - 1-dose 75+ series) 2065 IPV Vaccines Completed 08/30/1991, 01/1991, 1990, Additional history exists Hepatitis B Vaccines Completed 10/28/1997, 10/28/1997, 04/08/1997, Additional history exists HIB Vaccines Completed 04/24/1999, 02/03, 1990, Additional history exists HIV Screening Completed 07/28/2021 Hepatitis C Screening Completed 07/28/2021 HPV Vaccines Aged Out No longer eligi ble based on patient's age to complete this topic Meningococcal Vaccine Aged Out No jaya mirtha eligible based on patient's age to complete this topic RSV under 20 months Aged Out No longe r eligible based on patient's age to complete this topic Rotavirus Vaccines Aged Out No longer eligible based on patient's age to complete this topic Procedures Procedure Name Priority Date/Time Associated Diagnosis Comments CBC WITH AUTO DIFFERENTIAL Routine 10/13/2024 8:34 AM EST HIGH SENSITIVITY TROPONIN I Routine 09/24/2024 3:59 PM EST ECG 12-LEAD Routine 09/24/2024 3:15 PM EST Exertional chest pain HIGH SENSITIVITY TROPONIN I Routine 09/24/2024 2:06 PM EST B TYPE NATRIURETIC PEPTIDE (BNP) Routine 09/24/2024 2:06 PM EST MAGNESIUM Routine 09/24/2024 2:06 PM EST BASIC METABOLIC PANEL Routine 09/24/2024 2:06 PM EST HEPATIC FUNCTION PANEL Routine 09/24/2024 2:06 PM EST PROTHROMBIN TIME-INR Routine 09/24/2024 2:06 PM EST CBC WITH AUTO DIFFERENTIAL Routine 09/24/2024 2:06 PM EST SARS COV2/INFLUENZA A/B AND RSV RNA QL NAAT Routine 09/24/2024 2:06 PM EST XR CHEST 2 VIEWS Routine 09/24/2024 1:24 PM EST POCT URINALYSIS DIPSTICK Routine 09/20/2024 3:29 PM EST Well adult on routine health check HEMOGLOBIN A1C Routine 09/20/2024 3:29 PM EST Well adult on routine health check CBC WITH AUTO DIFFERENTIAL Routine 09/20/2024 3:29 PM EST Well adult on routine health check ALBUMIN, RANDOM URINE W/CREATININE Routine 09/20/2024 3:19 PM EST Well adult on routine health check CHLAMYDIA/N. GONORRHOEAE RNA, TMA, UROGENITAL Routine 09/20/2024 3:19 PM EST Well adult on routine health check TSH W/REFLEX TO FT4 Routine 09/20/2024 1 2:59 PM EST Well adult on routine health check LIPID PANEL, STANDARD Routine 09/20/2024 12:59 PM EST Well adult on routine health check BASIC METABOLIC PANEL Routine 09/20/2024 12:59 PM EST Well adult on routine health check ZZZ HISTORICAL HEPATITIS C AB W/REFL TO HCV RNA, QN, PCR Routine 07/28/2021 10:04 AM EST HIV 1/2 ANTIGEN/ANTIBODY, FOURTH GENERATION W/RFL Routine 07/28/2021 10:04 AM EST from Last 3 Months or Most Recently Relevant to Health Maintenance Results * (ABNORMAL) CBC auto differential (10/13/2024 8:34 AM EST) Only the most recent of3 resultswithin the time period is included. White Blood Count 16.5(H) 4.8 - 10.8 X10*3/uL [facility] Red Blood Count 5.68 4.60 - 5.80 X10*6/uL [facility] Hemoglobin 17.0 14.0 - 18.0 g/dl [facility] Hematocrit 48.6 42.0 - 52.0 % [facility] Mean Corpuscular Volume 85.6 80.0 - 98.0 fL [facility] Mean Corpuscular Hemoglobin 29.9 27.0 - 33.0 pg [facility] Mean Corpuscular HGB Conc 35.0 31.0 - 36.0 g/dl [facility] Red Cell Distribution Width 13.1 11.0 - 16.0 % [facility] Platelet Count 317 160 - 400 X10*3/uL [facility] Mean Platelet Volume 8.4(L) 9.4 - 12.4 fL [facility] Neutrophils Percent Auto 75.1(H) 45 - 73 % [facility] Imm Gran Pct Auto 0.4 0.0 - 0.4 % [facility] Lymphocytes Percent Auto 16.9(L) 20 - 40 % [facility] Monocytes Percent Auto 5.0 2 - 11 % [facility] Eosinophils Percent Auto 2.1 0 - 4 % [facility] Basophils Percent Auto 0.5 0 - 2 % [facility] NRBC Pct Auto 0.0 0.0 - 0.2 /100WBC [facility] Neutrophils Absolute Auto 12.4(H) 2.0 - 8.3 x10*3/uL [facility] Imm Gran Abs Auto 0.07(H) 0.00 - 0.03 X10*3/uL [facility] Lymphocytes Absolute Auto 2.8 1.2 - 4.9 X10*3/uL [facility] Monocytes Absolute Auto 0.8 0.1 - 1.2 X10*3/uL [facility] Eosinophils Absolute Auto 0.3 0.0 - 0.4 X10*3/uL [facility] Basophils Absolute Auto 0.1 0.0 - 0.2 X10*3/uL [facility] NRBC Abs Auto 0.000 0.0 - 0.012 X10*3/uL [facility] 10/13/2024 8:34 AM EST 10/13/2024 8:37 AM EST us Generic External Data Provider LAB BLOOD ORDERAB LES Final Result Performing Organization Address City/State/[facility] Co de Phone Number [facility] [address] [place] [phone] * High Sensitivity Troponin I (09/24/2024 3:59 PM EST) Only the most recent of2 resultswithin the time period is included. TROPONIN I HIGH SENSITIVITY <2.7 <3.5 - 35.0 ng/L [facility] Comment:The Fuller high sens itivity Troponin-I results should beused in conjunction with other diagnostic information suchas ECG, clinical observations and information, and patientsymptoms to aid in the diagnosis of ND. 09/24/2024 3:59 PM EST 09/24/2024 4:02 PM EST Generic External Data Provider LAB BLOOD ORDERAB LES Final Result Performing Organization Address [facility] Co de Phone Number [facility] [address] [place] [phone] * ECG 12 lead (09/24/2024 3:15 PM EST) Narrative Malena Balbuena MD - 09/24/2024 3:15 PM EST RBBB 86 BPM Malena Balbuena MD ECG ORDERABLES Final Resu lt * SARS-CoV-2 RNA, Influenza A/B, and RSV RNA, Ql NAAT (09/24/2024 2:06 PM EST) Influenza A PCR NEGATIVE Negative [facility] Influenza B PCR NEGATIVE Negative [facility] Resp Syncy Virus RNA Qual PCR NEGATIVE Negative [facility] SARS COV2 PCR NEGATIVE Negative [facility] Comment:All test results mus t [...] use by authorized laboratories.Testing performed on the [employer] GeneXpert utilizingreal-time RT-PCR.All SARS CoV2 and positive influenza A/B results arereported to [facility]. 09/24/2024 2:06 PM EST 09/24/2024 2:10 PM EST Generic External Data Provider LAB MICROBIOLOGY - GENERAL ORDERABLES Final Result Performing Organization Address City/[facility] Co de Phone Number [facility] [address] [place] [address] [phone] * Prothrombin Time-INR (09/24/2024 2:06 PM EST) [facility] Prothrombin Time 11.5 10.9 - 12.4 SEC [facility] INTERNATIONAL NORM RATIO 1.0 0.9 - 1.1 [facility] Comment:INTERNATIONAL NORMAL IZED RATIO (INR) REFERENCE [...] ORDERAB LES Final Result Performing Organization Address City/[facility]/ZIP Co de Phone Number [facility] [address] [place] [address] [phone] * B Type Natriuretic Peptide (BNP) (09/24/2024 2:06 PM EST) [facility] B Type Natriuretic Peptide 19 <100 pg/mL [facility] Comment:For those patients w ho are being treated with Natrecor(nesiritide, recombinant BNP), BNP testing should beperformed at least two hours post treatment in order toensure that only endogenous levels of BNP are detected. 09/24/2024 2:06 PM EST 09/24/2024 2:10 PM EST us Generic External Data Provider LAB BLOOD ORDERAB LES Final Result Performing Organization Address [facility]/ZIP Co de Phone Number [facility] [address] [place] [address] [phone] * Magnesium (09/24/2024 2:06 PM EST) [facility] Magnesium 2.2 1.6 - 2.6 mg/dL [facility] 09/24/2024 2:06 PM EST 09/24/2024 2:10 PM EST Generic External Data Provider LAB BLOOD ORDERAB LES Final Result Performing Organization Address [facility] Co de Phone Number [facility] [address] [place] [phone] * Hepatic Function Panel (09/24/2024 2:06 PM EST) [facility] Bilirubin, Total 0.5 0.0 - 1.0 mg/dL [facility] Bilirubin, Direct 0.1 0.0 - 0.5 mg/dL [facility] Aspartate Amino Transferase 25 5 - 37 U/L [facility] Alanine Aminotransferase 36 0 - 40 U/L [facility] Total Protein 7.9 6.5 - 8.0 g/dL [facility] Albumin Level 4.5 3.5 - 5.0 g/dL [facility] Alkaline Phosphatase 81 39 - 117 U/L [facility] 09/24/2024 2:06 PM EST 09/24/2024 2:10 PM EST [employer] External Data Provider LAB BLOOD ORDERAB LES Final Result Performing Organization Address [facility] de Phone Number [facility] [address] [place] [phone] * (ABNORMAL) Basic Metabolic Panel (09/24/2024 2:06 PM EST) Only the most recent of2 resultswithin the time period is included. [facility] Sodium 140 135 - 145 mmol/L [facility] Potassium 4.5 3.3 - 5.1 mmol/L [facility] Chloride 109(H) 96 - 108 mmol/L [facility] Carbon Dioxide 25 22 - 29 mmol/L [facility] Anion Gap 11(L) 12 - 20 [facility] Urea Nitrogen (BUN) 10 9 - 16 mg/dL [facility] Creatinine, Serum 1.00 0.5 - 1.4 mg/dL [facility] Creatinine Clr Calc Pharmacy 140.0 [facility] Comment:eGFR (calculated fro m the MDRD study equation) and eCrCl(calculated from the Cockcroft-Gault equation) are based ondifferent parameters and may not yield comparable results.If eCrCl result is absurd, please check patient'sheight/weight. Estimated Glomerular Filt Rate >60 [facility] Comment:Chronic Kidney Disea se: Estimated GFR < 60 mL/min/1.44g5Ftekap Kidney Disease: Estimated GFR < 15 mL/min/1.73m2 Glucose 84 60 - 115 mg/dL [facility] Calcium 9.1 8.4 - 10.2 mg/dL [facility] 09/24/2024 2:06 PM EST 09/24/2024 2:10 PM EST us Generic External Data Provider LAB BLOOD ORDERAB LES Final Result [facility] [address] [place] [phone] * XR Chest 2 Views (09/24/2024 1:24 PM EST) Anatomical Region Laterality Modality Chest Radiographic Liz ging 09/24/2024 1:24 PM EST Narrative 09/24/2024 2:07 PM EST ? [facility] ?[address] ?[place] [address] ?XRay Report ? Signed ? Patient: Aparicio,Jose W ?MR#: [id number] ?? 9 ? : 1990 ?Acct:[id number] ? Age/Sex: 34 / M ?ADM Date: 01/21/25 ? Loc: HO.ED ? Attending Dr: ? Ordering Physician: Susie Borden ?? Date of Service: 09/24/24 ?? Procedure(s): XR chest 2V ?? Accession Number(s): [id number] ? cc: [facility]; Susie Borden ? EXAMINATION: ?? XR CHEST ? CLINICAL INFORMATION: ?? cp/exertional dyspnea ? COMPARISON: ?? None available. ? TECHNIQUE: ?? 2 views of the chest were obtained. ? FINDINGS: ?? The cardiac, hilar, and mediastinal contours are normal. ? The lungs are clear bilaterally. There is no pneumothorax or pleural ?? effusion. ? There is no focal osseous or soft tissue abnormality. ? XR/XR chest 2V ?? IMPRESSION: ?? No active pulmonary disease. Normal chest. ? Electronically signed by: ??Jacques Mcclelland MD ??09/24/2024 02:04 PM EST RP ? Dictated By: ?Jacques Mcclelland MD ? Signed By: ?<Electronically signed by Jacques Mcclelland MD in OV> ?09/24/24 1404 ? DD/ 1324 ? TD/TT: 09/24/24 1358 ? Instructor Programmable Controllers: ? Procedure Note Gwendolyn Najera - 09/24/[address] [address] XRay Report Signed Patient: Jose Aparicio WMR#: [id number] 9 : 1990Acct:[id number] Age/Sex: 34 / MADM Date: 09/24/24 Loc: HO.ED Attending Dr: Ordering Physician: Susie Borden Date of Service: 09/24/24 Procedure(s): XR chest 2V Accession Number(s): [id number] cc: [facility]; Susie Borden EXAMINATION: XR CHEST CLINICAL INFORMATION: cp/exertional dyspnea COMPARISON: None available. TECHNIQUE: 2 views of the chest were obtained. FINDINGS: The cardiac, hilar, and mediastinal contours are normal. The lungs are clear bilaterally. There is no pneumothorax or pleural effusion. There is no focal osseous or soft tissue abnormality. XR/XR chest 2V IMPRESSION: No active pulmonary disease. Normal chest. Electronically signed by: Jacques Mcclelland MD 09/24/2024 02:04 PM [facility] Dictated By: Jacques Mcclelland MD Signed By: <Electronically signed by Jacques Mcclelland MD in OV> 09/24/24 1404 DD/ 1324 TD/TT: 09/24/24 1358 Instructor Programmable Controllers: [facility] External Provider IMG XR PROCEDURES Final Result * (ABNORMAL) POCT Urinalysis (09/20/2024 3:29 PM EST) Color, UA Yellow Clarity, UA Clear Glucose, UA Negative Bilirubin, UA Negative Ketones, UA Negative Spec Grav, UA 1.015 Blood, UA Positive(A) Negative, None Detected Comment:Trace-intact pH, UA 5.5 Protein, UA Negative Urobilinogen, UA 0.2 Leukocytes, UA Negative Negative, Rare, Trace Nitrite, UA Negative Negative, None Detected Appearance, UA yellow QC Media Lot # [id number] Lot# Expiration Date Urine 09/20/2024 3:29 PM EST Leanaeber Isaacs MAPPING SUPERVISOR POINT OF CARE TEST ENTER/EDIT ORDERABLES Final Result * Hemoglobin A1c (09/20/2024 3:29 PM EST) Hemoglobin A1c 5.4 <6.0 % [facility] Comment:Hemoglobin A1C Refer ence Range Adults: 4.8 - 6.0 % Non diabetic: < 6.0 % Goal: < 7.0 %Additional Action Suggested: > 8.0 %Note: Hemoglobin A1c results are invalid for patients with abnormal amounts of HbF. Blood transfusions may impact the HbA1c concentration in the patient sample. Estimated Average Glucose 108 mg/dL [facility] Comment:eAG = Estimated ave rage glucose which is %A1C expressed asaverage glucose, using the formula of the P9T-WmshdxfXxwakyl Glucose study (ADAG), Diabetes Care, Vol.31,#8,Apr. 2007 Blood Venous blood specimen / Unknown 09/20/2024 3:29 PM EST 09/20/2024 4:00 PM EST [facility] LAB BLOOD ORDERABLES Final Res ult Performing Organization Address [facility] Co de Phone Number [facility] [address] [place] [phone] * Albumin, Random Urine W/Creatinine (09/20/2024 3:19 PM EST) Creatinine, Urine 180.60 mg/dL [facility] Microalbumin Urine 23.0 mg/L [facility] Microalbum Creatinine Ratio Ur 12.7 <30 ug/mg cr [facility] Comment:Albumin/Creatinine R atio Reference Ranges: Normal: < 30 ug/mg creatinine Microalbuminuria: 30 - 300 ug/mg creatinineClinical Albuminuria: > 300 ug/mg creatinine Urine (Urine, Random) 09/20/2024 3:19 PM EST 09/20/2024 4:42 PM EST [facility] LAB URINE ORDERABLES Final Res ult Performing Organization Address [facility] de Phone Number [facility] [address] [place] [phone] * Chlamydia/N. Gonorrhoeae RNA, TMA, Urogenitial (09/20/2024 3:19 PM EST) CT PCR NOT DETECTED Not Detect. [facility] Comment:A not detected test result does not exclude the possibilityof infection because test results can be affected byimproper specimen collection, concurrent antibiotic therapy,or the number of organisms in the specimen which may bebelow the sensitivity of the test. As with many diagnostictests, results from the Xpert CT/NG assay should beinterpreted in conjunction with other laboratory andclinical data available to the clinician.Xpert CT/NG performance has not been evaluated in patientsless than 14 years of age. The assay should not be used forthe evaluationof suspected sexual abuse or for other medico-legalindications. Additional testing is recommended in anycircumstance when false positive or false negative resultscould lead to adverse medical, social or psychologicalconsequences. NG PCR NOT DETECTED Not Detect. [facility] Comment:A not detected test result does not exclude the possibilityof infection because test results can be affected byimproper specimen collection, concurrent antibiotic therapy,or the number of organisms in the specimen which may bebelow the sensitivity of the test. As with many diagnostictests, results from the Xpert CT/NG assay should beinterpreted in conjunction with other laboratory andclinical data available to the clinician.Xpert CT/NG performance has not been evaluated in patientsless than 14 years of age. The assay should not be used forthe evaluationof suspected sexual abuse or for other medico-legalindications. Additional testing is recommended in anycircumstance when false positive or false negative resultscould lead to adverse medical, social or psychologicalconsequences. Urine (Urine, Random) 09/20/2024 3:19 PM EST 09/20/2024 4:42 PM EST Narrative [facility] - 09/21/2024 1:19 PM EST Urine [email or web address] [facility] MICROBIOLOGY - GENERAL ORD ERABLES Final Result Performing Organization Address [facility]/ZIP Co de Phone Number [facility] [address] [place] [address] [phone] * TSH W/Reflex to FT4 (09/20/2024 12:59 PM EST) TSH reflex Free T4 1.38 0.32 - 4.0 uIU/mL [facility] Blood Venous blood specimen / Unknown 09/20/2024 12:59 PM EST 09/20/2024 4:00 PM EST [email or web address] [facility] BLOOD ORDERABLES Final Res ult Performing Organization Address City/[facility]/ZIP Co de Phone Number [facility] [address] [place] [phone] * (ABNORMAL) Lipid Panel, Standard (09/20/2024 12:59 PM EST) Triglycerides 219(H) <150 mg/dL [facility] Comment:Desirable Triglyceri de: less than 150 mg/dLBorderline High Triglyceride 150-199 mg/dLHigh Triglyceride: 200-499 mg/dLVery High Triglyceride: greater than or equal to 5OO mg/dL Cholesterol 163 <200 mg/dL [facility] Comment:Desirable Cholestero l: less than 200 mg/dLBorderline High Cholesterol: 200-239 mg/dLHigh Cholesterol: greater than 239 mg/dL LDL Cholesterol Calculated 90 <100 mg/dL [facility] Comment:Desirable LDL: less than 100 mg/dLNear Optimal/Above Optimal LDL: 110- 129 mg/dLBorderline High LDL: 130-159 mg/dLHigh LDL: 160-189 mg/dLVery High LDL: greater than or equal to 190 mg/dL HDL Cholesterol 30(L) >40 mg/dL [facility] Comment:Desirable HDL: great er than 40 mg/dL Note: This HDL assay may give artificially low results in patients with liver disease. Blood Venous blood specimen / Unknown 09/20/2024 12:59 PM EST 09/20/2024 4:00 PM EST us Leana Isaacs [facility] BLOOD ORDERABLES Final Res ult [facility] [address] [place] [phone] * HEPATITIS C AB W/REFL TO HCV RNA, QN, PCR (07/28/2021 10:04 AM EST) HEPATITIS C ANTIBODY NON-REACT MARLA NON-REACT [facility] INDEX 0.37 <1.00 [facility] Comment: ?? HCV antibody was non-reactive. There is no laboratory ?? evidence of HCV infection. ?? In most cases, no further action is required. However, if recent HCV exposure is suspected, a test for HCV RNA (test code 34722) is suggested. ?? For additional information please refer to http://education.CashStar/faq/VJS77l7 (This link is being provided for informational/ educational purposes only.) ?? 07/28/2021 10:0 4 AM EST Meg Pranay MAPPING SUPERVISOR HISTORICAL/NON ORDERABLE LABS Final Result Performing Organization Address [facility] de Phone Number [facility] [address] * HIV 1/2 ANTIGEN/ANTIBODY,FOURTH GENERATION W/RFL (07/28/2021 10:04 AM EST) HIV-1/2 ANTIGEN AND ANTIBODIES, 4TH GENERATION W/ REFLEX NON-REACT MARLA NON-REACT MARLA [facility] Comment: HIV-1 antigen and HIV-1/HIV-2 antibodies were not detected. There is no laboratory evidence of HIV infection. ?? PLEASE NOTE: This information has been disclosed to you from records whose confidentiality may be protected by state law. ??If your state requires such protection, then the state law prohibits you from making any further disclosure of the information without the specific written consent of the person to whom it pertains, or as otherwise permitted by law. A general authorization for the release of medical or other information is NOT sufficient for this purpose. ? For additional information please refer to http://education.CashStar/faq/AET824 (This link is being provided for informational/ educational purposes only.) ? The performance of this assay has not been clinically validated in patients less than 2 years old. ?? 07/28/2021 10:0 4 AM EST us Meg Pires MAPPING SUPERVISOR LAB BLOOD ORDERABLES Final Res ult Performing Organization Address [facility] de Phone Number [facility] [address] from Last 3 Months or Most Recently Relevant to Health Maintenance Insurance [facility] C3 Care Teams Oil Derrick Operator Relationship Specialty Start Date End Date Leana Isaacs FNP [address] [place] [phone] PCP - General Family Medicine 08/21/24
--- OUTSIDE RECORDS SUMMARY | 2024-10-23 09:01 | XMS_ITS | Clinical Summary ---
Author Organization [facility] it Address [address] [place] [address] Care Team Providers Care Neonatal Doctor Name Role Phone Unavailable Primary Care Provider Unavailabl e Social History Tobacco Use Types Packs/Day Years Used Date Smoking Tobacco: Never Assessed Sex and Gender Information Value Date Recorded Sex Assigned at Not on file Legal Sex Male 9:07 AM EST Gender Identity Not on file Sexual Orientation Not on file Plan of Treatment Health Maintenance Due Date Last Done Comments DTaP,Tdap,and Td Vaccines (7 - Td or Tdap) 12/09/2023 12/08/2013, 06/22/1994, 08/30/1991, Additional history exists Depression Screening 04/30/2024 HIV Screening 04/30/2024 Hepatitis C Screening 04/30/2024 Social Influencers of Health Screening 04/30/2024 COVID-19 Vaccine ( season) 2024 Influenza Vaccine (#1) 2024 09/16/2016 IPV Vaccines Completed 08/30/1991, 01/1991, 1990, Additional history exists Hepatitis B Vaccines Completed 10/28/1997, 04/08/1997, 12/07/1994 MMR Vaccines Completed 12/07/1997, 05/01/1991 HIB Vaccines Completed 04/24/1999, 02/03, 1990, Additional history exists Pneumococcal Vaccine: Pediatrics (0 to 5 Years) and At-Risk Patients (6 to 64 Years) Aged Out 09/16/2016 No longer eligible based on patient's age to complete this topic HPV Vaccines Aged Out No longer eligi ble based on patient's age to complete this topic Hepatitis A Vaccines Aged Out No long er eligible based on patient's age to complete this topic Meningococcal ACWY Vaccine Aged Out N o longer eligible based on patient's age to complete this topic Meningococcal B Vacine Aged Out No lo nger eligible based on patient's age to complete this topic RSV Immunization Patients Under 20 months Aged Out No longer eligible based on patient's age to complete this topic Varicella Vaccines Aged Out No longer eligible based on patient's age to complete this topic
--- OUTSIDE RECORDS SUMMARY | 2024-10-23 09:01 | XMS_ITS | Encounter Summary ---
Author Organization [employer] Address [address] [place] [address] Care Team Providers Care Analytical Data Miner Name Role Phone Henrique Isaacsupe SENIOR POLICY ASSOCIATE Primary Care Provider [phone] Reason for Visit * Reason Comments Chest Pain Encounter Details Date Type Department Care Team (Latest Contact Info) Description 09/24/2024 2:20 PM EST Office Visit [facility] [address] [place] [phone] Malena Balbuena MD [address] [place] [phone] Exertional chest pain (Primary Dx); Acute electrocardiogram changes Social History Tobacco Use Types Packs/Day Years [...] Sign Reading Time Taken Comments Blood Pressure 148/98 09/24/2024 12:35 PM EST Pulse 92 09/24/2024 12:35 PM EST Temperature 36.4 ??C (97.6 ??F) 09/24/2024 12:[address] Respiratory Rate - - Oxygen Saturation 98% 09/24/2024 12:35 PM EST RA Inhaled Oxygen Concentration - - Weight - - Height - - Body Mass Index - - documented in this encounter Progress Notes * Elmo Hubbard - 09/24/2024 2:20 PM EST Subjective Patient ID: Jose Aparicio is a 34 y.o. male with PMHx of uncontrolled HTN, and asthma who presents to walk in clinic for Chest Pain. Per triage, Pt called earlier this morning for chest pain. He reported that he had been experiencing 6.5-7/10 chest pain at night only since stopping clonidine and starting nifedipine. Reported that last episode of chest pain was last night. Reported that he did not experience nausea, vomiting, sobor dizziness when chest pain occurred. Pt stated that he is currently taking Metoprolol 100 mg daily, Lisinopril 40 mg po daily and nifedipine 30 mg po daily. Pt reported that his blood pressure continued to be high and stated it was 145/108 at 10 am this morning. Pt reports prior to arrival, on his way walking to the clinic when he had acute onset of chest pain. Upon arrival EKG showed RBBB with inverted T wave Lead V2. Denied any other associated symptoms. Review of Systems Constitutional: Negative for fever and unexpected weight change. Respiratory: Negative for shortness of breath. Cardiovascular: Positive for chest pain. Gastrointestinal: Negative for abdominal pain. Genitourinary: Negative for difficulty urinating. Objective Visit Vitals BP (!) 148/98 (BP Location: Left arm, Patient Position: Sitting, BP Cuff Size: Large adult) Pulse 92 Temp 97.6 ??F (36.4 ??C) (Temporal) There is no height or weight on file to calculate BMI. Physical Exam Constitutional: Appearance: Normal appearance. Cardiovascular: Rate and Rhythm: Normal rate. Pulmonary: Effort: Pulmonary effort is normal. Psychiatric: Behavior: Behavior normal. Problem List Items Addressed This Visit Exertional chest pain - Primary Recent hx of nonspecific chest pain episodes. Acute onset of exertional chest pain prior to arrival. BP elevated at home and upon arrival. KG showed RBBB with inverted T wave Lead V2. Pt was sent to the ED for further cardiac work-up. Acute electrocardiogram changes EKG showed RBBB with inverted T wave Lead V2. Pt was sent to the ED for further cardiac work-up. -Suspect exertional chest pain, given no other associated symptoms. Given EKG changes of RBBB with inverted T wave Lead V2, pt was sent to the Emergency Department via ambulance for further cardiac work-up. I, Elmo Hubbard, am serving as a scribe to document services personally performed by Dr. Nation, based on the patient's response to questions by provider and providers statements to me. documented in this encounter Miscellaneous Notes * Assessment & Plan Note - Elmo Hubbard - 09/24/2024 12:59 PM ESTAssociated Problem(s): Exertional chest pain Recent hx of nonspecific chest pain episodes. Acute onset of exertional chest pain prior to arrival. BP elevated at home and upon arrival. KG showed RBBB with inverted T wave Lead V2. Pt was sent to the ED for further cardiac work-up. * Assessment & Plan Note - Elmo Hubbard - 09/24/2024 12:58 PM ESTAssociated Problem(s): Acute electrocardiogram changes EKG showed RBBB with inverted T wave Lead V2. Pt was sent to the ED for further cardiac work-up. documented in this encounter Plan of Treatment Upcoming Encounters Date Type Department Care Team (Late st Contact Info) Description 11/01/2024 3:00 PM EST Office Visit [facility] [address], [place] [phone] Leana Isaacs FNP [address] [place] [phone] documented as of this encounter Procedures Procedure Name Priority Date/Time Associated Diagnosis Comments ECG 12-LEAD Routine 09/24/2024 3:15 PM EST Exertional chest pain documented in this encounter Results * ECG 12 lead (09/24/2024 3:15 PM EST) Narrative Malena Balbuena MD - 09/24/2024 3:15 PM EST RBBB 86 BPM us Malena Balbuena MD ECG ORDERABLES Final Resu lt documented in this encounter Visit Diagnoses Diagnosis Exertional chest pain- Primary Unspecified chest pain Acute electrocardiogram changes documented in this encounter Additional Health Concerns Assessment Noted Time PHQ-9 Depression Total Score: 13 09/20/2 025 2:01 PM EST documented as of this encounter Care Teams Analytical Data Miner Relationship Specialty Start Date End Date Leana Isaacs FNP [address] [place] [phone] PCP - General Family Medicine 08/21/24 documented as of this encounter
--- OUTSIDE RECORDS SUMMARY | 2024-10-23 09:01 | XMS_ITS | Encounter Summary ---
Author Organization [employer] Address [address] [place] [address] Care Team Providers Care Prehemmer Name Role Phone Leana Isaacs CURTAIN CUTTER Primary Care Provider [phone] Encounter Details Date Type Department Care Team ( Contact Info) Description 10/13/2024 Orders Only GENERIC EXTERNAL DATA DEPARTMENT [...] Description 11/01/2024 3:00 PM EST Office Visit [facility] [address] [place], [place] [phone] Leana Isaacs FNP [address] [place], [place] [phone] documented as of this encounter Procedures Procedure Name Priority Date/Time Associated Diagnosis Comments CBC WITH AUTO DIFFERENTIAL Routine 10/13/2024 8:34 AM EST documented in this encounter Results * (ABNORMAL) CBC auto differential (10/13/2024 8:34 AM EST) White Blood Count 16.5(H) 4.8 - 10.8 X10*3/uL [facility] Red Blood Count 5.68 4.60 - 5.80 X10*6/uL [facility] Hemoglobin 17.0 14.0 - 18.0 g/dl [facility] Hematocrit 48.6 42.0 - 52.0 % [facility] Mean Corpuscular Volume 85.6 80.0 - 98.0 fL [facility] Mean Corpuscular Hemoglobin 29.9 27.0 - 33.0 pg [facility] Mean Corpuscular HGB Conc 35.0 31.0 - 36.0 g/dl [facility] Red Cell Distribution Width 13.1 11.0 - 16.0 % [facility] Platelet Count 317 160 - 400 X10*3/uL [facility] Mean Platelet Volume 8.4(L) 9.4 - 12.4 fL [facility] Neutrophils Percent Auto 75.1(H) 45 - 73 % [facility] Imm Gran Pct Auto 0.4 0.0 - 0.4 % [facility] Lymphocytes Percent Auto 16.9(L) 20 - 40 % [facility] Monocytes Percent Auto 5.0 2 - 11 % [facility] Eosinophils Percent Auto 2.1 0 - 4 % [facility] Basophils Percent Auto 0.5 0 - 2 % [facility] NRBC Pct Auto 0.0 0.0 - 0.2 /100WBC [facility] Neutrophils Absolute Auto 12.4(H) 2.0 - 8.3 x10*3/uL [facility] Imm Gran Abs Auto 0.07(H) 0.00 - 0.03 X10*3/uL [facility] Lymphocytes Absolute Auto 2.8 1.2 - 4.9 X10*3/uL [facility] Monocytes Absolute Auto 0.8 0.1 - 1.2 X10*3/uL [facility] Eosinophils Absolute Auto 0.3 0.0 - 0.4 X10*3/uL [facility] Basophils Absolute Auto 0.1 0.0 - 0.2 X10*3/uL [facility] NRBC Abs Auto 0.000 0.0 - 0.012 X10*3/uL [facility] 10/13/2024 8:34 AM EST 10/13/2024 8:37 AM EST us Generic External Data Provider LAB BLOOD ORDERAB LES Final Result [facility] [address] [place] [address] [phone] documented in this encounter Visit Diagnoses Not on filedocumented in this encounter Additional Health Concerns Assessment Noted Time PHQ-9 Depression Total Score: 13 025 2:01 PM EST documented as of this encounter Care Teams Prehemmer Relationship Specialty Start Date End Date Leana Isaacs FNP [address] [place] [phone] PCP - General Family Medicine 08/21/24 documented as of this encounter
--- OUTSIDE RECORDS SUMMARY | 2024-10-23 09:01 | XMS_ITS | Encounter Summary ---
Author Organization [employer] Address [address] [facility] [address] [place] [address] Care Team Providers Care Supervisor Cd Area Name Role Phone Missy Wan Primary Care Provider [phone] Nolan Kat Primary Care Provider Unavail able Mahsa Wahl MD Primary Care Provide r Leana Isaacs Primary Care Provider [phone] Reason for Referral * Imaging (Routine) - Closed Specialty Diagnoses / Procedures Referred By Contac t Referred To Contact Diagnoses Left groin pain Non-recurrent unilateral inguinal hernia without obstruction or gangrene Procedures US Pelvis Limited Donovan Allred FNP [facility] [address] [place] [address] Phone: tel: fax: Referral ID Status Reason Start Date Expiration Date Visits Re quested Visits Authorized [id number] Closed 12/13/2022 06/11/2023 1 1 Encounter Details Date Type Department Care Team (Late st Contact Info) Description 12/13/2022 Orders Only [facility] [address] [place] [address] Donovan Allred FNP Left groin pain (Primary Dx); Non-recurrent unilateral inguinal hernia without obstruction or gangrene Social History Tobacco Use Types Packs/Day Years Used Date Smoking Tobacco: Every Day Cigarettes Passive Smoke Exposure: Current Smokeless Tobacco: Former Sex and Gender Information Value Date Recorded Sex Assigned at Male 07/04/2022 10:39 AM EDT Legal Sex Male 10:39 AM EDT Gender Identity Male 07/04/2022 10:39 AM EDT Sexual Orientation Choose not to disclose 2021 10:39 AM EDT COVID-19 Exposure Response Date Recorded In the last 10 days, have yo u been in contact with someone who was confirmed or suspected to have Coronavirus/COVID-19? No / Unsure 12/06/2022 11:43 AM EDT documented as of this encounter Plan of Treatment Upcoming Encounters Date Type Department Care Team (Late st Contact Info) Description 11/01/2024 3:00 PM EST Office Visit [facility] [address] [place] [address] Leana Isaacs FNP [address] [place], [place] Scheduled Orders Name Type Priority Associated Diagnoses Orde r Schedule US Pelvis Limited Imaging Routine Left groin pain Non-recurrent unilateral inguinal hernia without obstruction or gangrene Expected: 12/13/2022, Expires: 12/14/2023 documented as of this encounter Visit Diagnoses Diagnosis Left groin pain- Primary Abdominal pain, left lower quadrant Non-recurrent unilateral inguinal hernia without obstruction or gangrene documented in this encounter Care Teams Supervisor Cd Area Relationship Specialty Start Date End Date Missy Wan FNP [address] [place] [phone] PCP - General Family Medicine 12/06/22 02/07/23 Nolan Kat AGNP [address] [place] [phone] PCP - General Family Medicine 02/08/23 05/11/23 Mahsa Wahl MD [address] [place] [phone] PCP - General Internal Medicine 05/12/23 07/23/24 Leana Isaacs FNP [address] [place] [phone] PCP - General Family Medicine 08/21/24 documented as of this encounter
--- OUTSIDE RECORDS SUMMARY | 2024-10-23 09:01 | XMS_ITS | Encounter Summary ---
Author Organization [employer] [facility] Address [address] [facility] 7t [place] [address] Care Team Providers Care Artist Color Separation Name Role Phone Leana Isaacs Primary Care Provider [phone] Reason for Visit * Reason Onset Date Comments Nurse Triage 09/24/2024 Encounter Details Date Type Department Care Team ([facility] Contact Info) Description 09/24/2024 Telephone [facility] [address] [place] [address] Leana Isaacs FNP [address] [place] [address] Nurse Triage Social History Tobacco Use Types Packs/Day Years [...] encounter Miscellaneous Notes * Telephone Encounter - Shea Diaz RN - 09/24/2024 2:14 PM EST T/C to pt who states that he is currently in the ED due to symptoms. Pt states that he woke up withBP of 145/110. Pt states that he then proceeded to walk-in clinic, on the wait to walk-in clinic hedeveloped chest pain and lightheadedness. In walk-in pt was given and EKG and ambulance was called.Pt is currently in the ED. RN advises pt to call clinic when discharged to schedule follow-up. Pt expresses understanding and agrees to plan of care. * Telephone Encounter - Shea Diaz RN - 09/24/2024 1:54 PM EST T/C to pt re: triage - no answer left voicemail to return call to [facility] triage nurses. Will reattemptin 15mins * Telephone Encounter - Susan White - 09/24/2024 10:41 AM EST Symptom: High Blood Pressure - Caller Reports (B/p Reading 145/110) Outcome: Transfer to a nurse or provider NOW! Reason: Chest pain The caller accepted this outcome. [phone] documented in this encounter Plan of Treatment Upcoming Encounters Date Type Department Care Team (Late st Contact Info) Description 11/01/2024 3:00 PM EST Office Visit [facility] [address] [place] [address] Leana Isaacs FNP [address] [place] [address] documented as of this encounter Visit Diagnoses Not on filedocumented in this encounter Additional Health Concerns Assessment Noted Time PHQ-9 Depression Total Score: 13 025 2:01 PM EST documented as of this encounter Care Teams Artist Color Separation Relationship Specialty Start Date End Date Leana Isaacs FNP [address] [place] [address] PCP - General Family Medicine 08/21/24 documented as of this encounter
[2024-10-24 10:29] LABS: Sex Hormone Binding Globulin 15 nmol/L (10-50)
[2024-10-25 19:34] LABS: Follicle Stimulating Hormone 2.7 mIU/mL (1.4-12.8); Lutenizing Hormone 2.7 mIU/mL (1.5-9.3)
[2024-10-28 21:38] LABS: Testosterone, Free 75.2 pg/mL (35.0-155.0); Testosterone, Total 285 ng/dL (250-1100)
== END 2024-10-23 08:55 | disposition home or self-care (01) ==
LOC: HO.HHCL 08:54
PROVIDERS: Visit Provider Nurse Practitioner Family
DX: N52.9 Male erectile dysfunction, unspecified (principal)
CPT/HCPCS: 36415; 83001; 83002; 84146; 84270; 84402; 84403

== ENCOUNTER 2024-11-01 14:59 | Outpatient (AMB) | payer MEDICAID, SELFPAY ==
--- NOTE | 2024-11-01 15:13 | HO.NEPHOV_ITS ---
Vital Signs 11/01/24 15:16 Height 5 ft 10 in Weight 271 lb 6 oz BMI 38.9 BP 134/80 Blood Pressure Location Rt brachial Position Sitting Pulse 94 Pulse Source Pulse Oximeter Pulse Oximetry (%) 98 Oxygen Delivery Method Room Air Intake Visit Reasons: ENP: Resistant Hypertension-LVM Accompanied by: Self / Same As Patient Allergies No Known Allergies Allergy (Verified 11/01/24 15:16) HPI Comments Details: Thank you for referring this delightful 34 year old for evaluation of hypertension. According to him, he has been having hypertension for about ten years. Initially he had not been on medications but currently compliant with medications for 5-7 years. He checks his BP intermittently. His weight has been stable but has not lost any. He currently weighs 271 lbs. He tries to have low sodium diet but not very complaint. He has a very strong family h/o hypertension. He has H/O cocaine use in the past but not for 10 yrs. He has no DM or vascular disease. He has never been tested for ROX. He has ho H/O hypothyroidism, hypokalemia, hypercalcemia. He has no H/O CAD, CVA, CHF, PAD, VIPUL or carotid disease. He is a smoker. His medication dose has been increased recently with improvement in blood pressure control. [facility] Medical History (Updated 11/01/24 @ 15:40 by Cullen Arcos MD) Erectile dysfunction Gastroesophageal reflux disease Anxiety and depression Recurrent major depressive disorder Obesity Mild intermittent asthma without complication Hypertriglyceridemia Asthma Tobacco use disorder Diverticulitis of colon with perforation Acute diverticulitis Morbid obesity Surgical History Hx of tonsillectomy Family History (Updated 11/01/24 @ 15:15 by Portia Valentin MA) Brother Hypertension Mother Cancer Hypertension Diabetes Father Cancer Diabetes Hypertension Social History Household Members: Spouse Housing: Apartment Do you presently have visiting nurse or other home services: No Patient Tobacco Use Status: Current everyday Tobacco user Tobacco use type: Cigarette Substance Use Type: Marijuana service: No Review of Systems Const All systems reviewed & are unremarkable except as noted in HPI and below Physical Exam Vital Signs: Last Vital Signs Pulse 94 11/01/24 15:16 BP 134/80 11/01/24 15:16 Pulse Ox 98 11/01/24 15:16 Oxygen Delivery Method Room Air 11/01/24 15:16 BMI result Body Mass Index 38.9 Const General: comfortable and no acute distress Orientation/consciousness: patient oriented x3 HEENT Head: Yes normocephalic Mouth: Normal oral and palatal mucosa present Eyes EOM: EOMs intact bilaterally Neck Neck: Yes supple Resp Auscultation: clear to auscultation bilaterally Cardio Jugular venous distension: no JVD Rate: regular rate GI Palpation (GI): Soft to palpation Auscultation: normal bowel sounds General: Yes no CVA tenderness Back/Spine/Pelvis Back: no CVA tenderness Skin General skin exam: no rashes or lesions noted Neuro General: patient oriented x3 and moves all extremities Extrem General: Yes no pedal edema Results Reviewed Nephrology Results: Sodium 140 mmol/L (135-145) 10/13/24 Potassium 4.0 mmol/L (3.3-5.1) 10/13/24 Chloride 109 mmol/L (96-108) H 10/13/24 Carbon Dioxide 21 mmol/L (22-29) L 10/13/24 BUN 12 mg/dL (9-16) 10/13/24 Creatinine 0.90 mg/dL (0.5-1.4) 10/13/24 Calcium 9.4 mg/dL (8.4-10.2) 10/13/24 Assessment & Plan Assessment & Plan (1) Hypertension: Code(s): I10 - Essential (primary) hypertension Category: Medical Qualifiers: Hypertension type: primary hypertension Qualified Code(s): I10 - Essential (primary) hypertension Plan Low sodium diet; Needs weight loss Would benefit from sleep study Serum potassium and renal function normal; No proteinuria Shall check TSH, cortisol, metanephrines, renin/aldosterone Shall continue current medication for now All his recent medical records reviewed Answered all questions; F/U given Coding Level of Care Code New Pt Level 4 (17292) Diagnoses Primary hypertension I10 Hypertension type: primary hypertension
[2024-11-01 15:16] VITALS: BP 134/80; PULSE 94; O2SAT 98; BMI 38.9
--- OUTSIDE RECORDS SUMMARY | 2024-11-01 17:11 | XMS_ITS | Encounter Summary ---
Author Organization [employer] Address [address] [facility] 7t [place] [address] Care Team Providers Care Automatic Splicing Machine Operator Name Role Phone Leana Isaacs Primary Care Provider [phone] Reason for Visit * Reason Onset Date Comments Prior Authorization 10/24/2024 Zepbound Encounter Details Date Type Department Care Team ([facility] Contact Info) Description 10/24/2024 Telephone [facility] [address] [place] [address] Leana Isaacs FNP [address] [place] [address] Prior Authorization (Zepbound) Social History Tobacco Use Types Packs/Day Years [...] encounter Miscellaneous Notes * Telephone Encounter - Marianna Finley - 10/29/2024 1:53 PM EST PA for Zepbound signed and faxed to [facility]. Confirmation received and sent to [facility]. If patient calls to check status on above, please advise them to contact Pharmacy . * Telephone Encounter - Marianna Finley - 10/24/2024 3:14 PM EST PA for Zepbound from [facility] placed on PCP desk for signature. * Telephone Encounter - Marianna Finley - 10/24/2024 3:14 PM EST ----- Message from Leana Isaacs sent at 10/24/2024 11:11 AM EST ----- Can you please process PA for Zepbound for Jose. He has class 2 obesity, resistant HTN, anxiety and depression. The patient can not be prescribe phentermine-topiramate because of his anxiety and resistant HTN. Thank you documented in this encounter Plan of Treatment Upcoming Encounters Date Type Department Care Team (Late st Contact Info) Description 11/06/2024 9:30 AM EST Office Visit [facility] [address] [place] [address] Leana Isaacs FNP [address] [place] [address] documented as of this encounter Visit Diagnoses Not on filedocumented in this encounter Additional Health Concerns Assessment Noted Time PHQ-9 Depression Total Score: 13 025 2:01 PM EST documented as of this encounter Care Teams Automatic Splicing Machine Operator Relationship Specialty Start Date End Date Leana Isaacs FNP [address] [place] [address] PCP - General Family Medicine 08/21/24 documented as of this encounter
--- OUTSIDE RECORDS SUMMARY | 2024-11-01 17:11 | XMS_ITS | Encounter Summary ---
Author Organization [employer] Address [address] [facility] 7t [place] [address] Care Team Providers Care Psychologist Developmental Name Role Phone Missy Wan Primary Care Provider [phone] Nolan Kat Primary Care Provider Unavail able Mahsa Wahl MD Primary Care Provide r Leana Isaacs Primary Care Provider [phone] Reason for Referral * Imaging (Routine) - Closed Specialty Diagnoses / Procedures Referred By Contac t Referred To Contact Diagnoses Left groin pain Non-recurrent unilateral inguinal hernia without obstruction or gangrene Procedures US Pelvis Limited Donovan Allred FNP [facility] [address] [place] [address] Phone: tel: fax: Referral ID Status Reason Start Date Expiration Date Visits Re quested Visits Authorized [id number] Closed 12/13/2022 06/11/2023 1 1 Encounter Details Date Type Department Care Team (Late st Contact Info) Description 12/13/2022 Orders Only [facility] [address] [place] [address] Donovan Allred FNP Left groin pain (Primary [...] Description 11/06/2024 9:30 AM EST Office Visit [facility] [address] [place] [address] Leana Isaacs FNP [address] [place] [address] Scheduled Orders Name Type Priority Associated Diagnoses Orde r Schedule US Pelvis Limited Imaging Routine Left groin pain Non-recurrent unilateral inguinal hernia without obstruction or gangrene Expected: 12/13/2022, Expires: 12/14/2023 documented as of this encounter Visit Diagnoses Diagnosis Left groin pain- Primary Abdominal pain, left lower quadrant Non-recurrent unilateral inguinal hernia without obstruction or gangrene documented in this encounter Care Teams Psychologist Developmental Relationship Specialty Start Date End Date Missy Wan FNP [address] [place] [address] PCP - General Family Medicine 12/06/22 02/07/23 Nolan Kat AGNP [address] [place] [address] PCP - General Family Medicine 02/08/23 05/11/23 Mahsa Wahl MD [address] [place] [address] PCP - General Internal Medicine 05/12/23 07/23/24 Leana Isaacs FNP [address] [place] [phone] PCP - General Family Medicine 08/21/24 documented as of this encounter
--- OUTSIDE RECORDS SUMMARY | 2024-11-01 17:11 | XMS_ITS | Encounter Summary ---
Author Organization [employer] Address [address] [facility] 7t [place] [address] Care Team Providers Care Risk Manager Name Role Phone Leana Isaacs Primary Care Provider Reason for Visit * Reason Comments Med Refill Encounter Details Date Type Department Care Team ([facility] Contact Info) Description 10/18/2024 Refill [facility]INE [address] [place] [address] Leana Isaacs FNP [address] [place] [address] Anxiety and depression Social History Tobacco Use [...] Description 11/06/2024 9:30 AM EST Office Visit [facility]INE [address] [place] [address] Leana Isaacs FNP [address] [place] [address] documented as of this encounter Visit Diagnoses Diagnosis Anxiety and depression documented in this encounter Additional Health Concerns Assessment Noted Time PHQ-9 Depression Total Score: 13 025 2:01 PM EST documented as of this encounter Care Teams Risk Manager Relationship Specialty Start Date End Date Leana Isaacs FNP [address] [place] [address] PCP - General Family Medicine 08/21/24 documented as of this encounter
--- OUTSIDE RECORDS SUMMARY | 2024-11-01 17:11 | XMS_ITS | Clinical Summary ---
Author Organization [employer] [facility] it Address [address] [place] [address] Care Team Providers Care Music Theory Teacher Name Role Phone Unavailable Primary Care Provider [...]
--- OUTSIDE RECORDS SUMMARY | 2024-11-01 17:11 | XMS_ITS | Encounter Summary ---
Author Organization [facility] Address [address] [place] [address] 7t [place] [address] Care Team Providers Care Machine Sole Leveler Name Role Phone Leana Isaacs Primary Care Provider Reason for Referral * Consultation (Routine) - Authorized Specialty Diagnoses / Procedures Referred By Ricardo brice Referred To Contact Pharmacy Diagnoses Tobacco use disorder Leana Isaacs FNP [address] [place] [address] Phone: tel: fax: Referral ID Status Reason Start Date Expiration Date Visits Requested Visits Authorized [id number] Authorized Consult and Treat 10/20/2024 10/20/2025 6 6 * Consultation (Routine) - Authorized Specialty Diagnoses / Procedures Referred By Ricardo brice Referred To Contact Nephrology Diagnoses Resistant hypertension Leana Isaacs FNP [address] [place] [address] Phone: tel: fax: [facility] [address], [address] [place] [address] Phone: tel: fax: Referral ID Status Reason Start Date Expiration Date Visits Requested Visits Authorized [id number] Authorized Specialty Services Required 10/20/2024 10/20/2025 6 6 Reason for Visit * Reason Comments Follow-up Encounter Details Date Type Department Care Team ([facility] Contact Info) Description 10/18/2024 10:00 AM EST [facility] [address] [facility] [place] [phone] Leana Isaacs FNP [address] [facility] [place] [address] Resistant hypertension (Primary Dx); Erectile dysfunction, unspecified [...] without consulting health care provider Referral to lime filter operator Aerobic exercise daily at 30 mins daily [...] years.Patient has notused any medication. 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 Will run lab work on hormones Relevant Orders FSH Sex Hormone Binding Globulin (SHBG) Prolactin, Dilution Study Testosterone, Free (Dialysis) And Total, MS LH Testosterone, Free (Dialysis) And Total, MS Testosterone, Total, males (Adult), IA CLASSIFICATION COUNSELOR Resident Attestation: Patient was seen and evaluated by Leana PAERDES in collaboration with Mahsa Mejia MD who has reviewed my assessment and plan. I, Mahsa Mejia MD, have reviewed the resident's note and agree with the assessment & plan of care as documented above. documented in this encounter Plan of Treatment Upcoming Encounters Date Type Department Care Team (Late st Contact Info) Description 11/06/2024 9:30 AM EST Office [address] [facility] [address] [place], [place] [phone] Leana Isaacs FNP [address] [place], [place] [phone] Scheduled Orders Name Type Priority Associated Diagnoses Orde r Schedule Testosterone, Free (Dialysis) And Total, MS Lab [...] Ordered: 10/20/2024 documented as of this encounter Procedures Procedure Name Priority Date/Time Associated Diagnosis Comments PROLACTIN, DILUTION STUDY Routine 10/23/2024 8:58 AM EST Erectile dysfunction, unspecified erectile dysfunction type SEX HORMONE BINDING GLOBULIN Routine 10/23/2024 8:58 AM EST Erectile dysfunction, unspecified erectile dysfunction type TESTOSTERONE, FREE (DIALYSIS) AND TOTAL,MS Routine 10/23/2024 8:58 AM EST Erectile dysfunction, unspecified erectile dysfunction type LH Routine 10/23/2024 8:58 AM EST Erectile dysfunction, unspecified erectile dysfunction type FSH Routine 10/23/2024 8:58 AM EST Erectile dysfunction, unspecified erectile dysfunction type documented in this encounter Results * LH (10/23/2024 8:58 AM EST) Lutenizing Hormone 2.7 1.5 - 9.3 mIU/mL [facility] Comment:THIS TEST WAS PERFOR MED AT:[facility] [address] [id number] ARIZMENDI MD Blood Venous blood specimen / Unknown 10/23/2024 8:58 AM EST 10/23/2024 11:10 AM EST us Leana Isaacs [facility] LAB BLOOD ORDERABLES Final Res ult [facility] [address] [place] [phone] * Testosterone, Free (Dialysis) And Total, MS (10/23/2024 8:58 AM EST) Testosterone, Total 285 250 - 1100 ng/dL [facility] Comment:For additional infor mation, please refer tohttp://education.[employer].ShowEvidence/faq/XjcmbOgchgguicpdvAVKYEIFAM498(This link is being provided for informational/educational purposes only.)This test was developed and its analytical performancecharacteristics have been determined by [employer] [place], [place]. It hasnot been cleared or approved by the U.S. Food and DrugAdministration. This assay has been validated pursuantto the CLIA regulations and is used for clinicalpurposes. Testosterone, Free 75.2 35.0 - 155.0 pg/mL [facility] Comment:This test was devfernandao ped and its analytical performancecharacteristics have been determined by [employer] [place], [place]. It hasnot been cleared or approved by the U.S. Food and DrugAdministration. This assay has been validated pursuantto the CLIA regulations and is used for clinicalpurposes.THIS TEST WAS PERFORMED AT:[facility]/[id number] [place] [address]AGCTLHANANCY RAMIREZ MD,PHD Blood Venous blood specimen / Unknown 10/23/2024 8:58 AM EST 10/23/2024 11:10 AM EST us Leana Isaacs [facility] BLOOD ORDERABLES Final Res ult [facility] [address] [place] [phone] * Prolactin, Dilution Study (10/23/2024 8:58 AM EST) Prolactin, Undiluted 4.0 2.0 - 18.0 ng/mL [facility] Comment:Verified by repeat a nalysis. Prolactin, Diluted SEE NOTE 2.0 - 18.0 ng/mL [facility] Comment:Result confirmed by 1:100 dilution. No high dosehook effect detected.Prolactin dilution studies are done to determine ifthere is a high-dose hook effect (i.e. a non-linearassay response due to a very high concentration ofProlactin). This is reported to occur at Prolactinconcentrations at or above 30,000 ng/mL.This test is not recommended for identifyingmacroprolactin. The [employer] [facility], Prolactin, Total and Monomeric is therecommended test (Order code [id number]).THIS TEST WAS PERFORMED AT:[facility] [address] [address]ZLFWUJERARDO ARIZMENDI MD Blood Venous blood specimen / Unknown 10/23/2024 8:58 AM EST 10/23/2024 11:10 AM EST [facility] B[facility] ORDERABLES Final Res ult Performing Organization Address [facility]/ZIP Co de Phone Number [facility] [address] [place] [address] [phone] * Sex Hormone Binding Globulin (SHBG) (10/23/2024 8:58 AM EST) Sex Hormone Binding Globulin 15 10 - 50 nmol/L [facility] Comment:THIS TEST WAS PERFOR MED AT:[facility] [address] [address]TPBUPJERARDO ARIZMENDI MD Blood Venous blood specimen / Unknown 10/23/2024 8:58 AM EST 10/23/2024 11:10 AM EST [facility] BLOOD ORDERABLES Final Res ult Performing Organization Address [facility] de Phone Number [facility] [address] [place] [phone] * FSH (10/23/2024 8:58 AM EST) Follicle Stimulating Hormone 2.7 1.4 - 12.8 mIU/mL [facility] Comment:THIS TEST WAS PERFOR MED AT:[facility] [address] [address]IJTPXMICHAEL ARIZMENDI MD Blood Venous blood specimen / Unknown 10/23/2024 8:58 AM EST 10/23/2024 11:10 AM EST [facility] BLOOD ORDERABLES Final Res ult Performing Organization Address [facility] Co de Phone Number [facility] [address] [place] [address] [phone] documented in this encounter Visit Diagnoses Diagnosis Resistant hypertension- [...] documented as of this encounter Care Teams Machine Sole Leveler Relationship Specialty Start Date End Date Leana Isaacs FNP [address] [place] [address] PCP - General Family Medicine 08/21/24 documented as of this encounter
--- OUTSIDE RECORDS SUMMARY | 2024-11-01 17:11 | XMS_ITS | Encounter Summary ---
Author Organization [employer] Address [address] [facility] [address] [place] [address] Care Team Providers Care File Conversion Operator Name Role Phone Henrique Isaacsupe DECORATOR CONSULTANT Primary Care Provider [phone] Reason for Visit * Reason Onset Date Comments Chart Prep 10/15/2024 Encounter Details Date Type Department Care Team ([facility] Contact Info) Description 10/15/2024 Telephone [facility] [address] [place] [address] [place] Chart Prep Social History [...] Description 11/06/2024 9:30 AM EST Office Visit [facility] [address] [place] [address] Leana Isaacs FNP [address] [place] [address] documented as of this encounter Visit Diagnoses Not on filedocumented in this encounter Additional Health Concerns Assessment Noted Time PHQ-9 Depression Total Score: 13 025 2:01 PM EST documented as of this encounter Care Teams File Conversion Operator Relationship Specialty Start Date End Date Leana Isaacs FNP [address] [place] [address] PCP - General Family Medicine 08/21/24 documented as of this encounter
--- OUTSIDE RECORDS SUMMARY | 2024-11-01 17:11 | XMS_ITS | Encounter Summary ---
Author Organization [employer] Address [address] [facility] [place] [address] Care Team Providers Care Charge Operator Name Role Phone Henrique Isaacsupe PROPAGATOR LABORER Primary Care Provider [phone] Encounter Details Date Type Department Care Team ([facility] Contact Info) Description 10/30/2024 Telephone [facility] MED[facility]INE [address] [place] [address] Margarita Catalan RN Social History Tobacco Use Types Packs/Day Years [...] encounter Miscellaneous Notes * Telephone Encounter - Margarita Catalan RN - 10/30/2024 9:09 AM EST Tc to pt to per PCP request Can you please reach out to Jose and ask if his anxiety is improving/ improved on the 10 mg fluoxetine if not we could increase the dose. Thank you . Pt reports they have not started taking the medication yet. Pt advised to start and if they notice no improvement to their anxiety to call out office back and let us know. Pt expressed understanding and message forwarded to PCP as an FYI. * Telephone Encounter - Margarita Catalan RN - 10/30/2024 9:07 AM EST ----- Message from Leana Isaacs sent at 10/29/2024 3:53 PM EST ----- Can you please reach out to Jose and ask if his anxiety is improving / improved on the 10 mg fluoxetine if not we could increase the dose. Thank you documented in this encounter Plan of Treatment Upcoming Encounters Date Type Department Care Team (Late st Contact Info) Description 11/06/2024 9:30 AM EST Office Visit [facility] MEDICINE [address] [place], [place] [phone] Leana Isaacs FNP [address] [place] [address] documented as of this encounter Visit Diagnoses Not on filedocumented in this encounter Additional Health Concerns Assessment Noted Time PHQ-9 Depression Total Score: 13 025 2:01 PM EST documented as of this encounter Care Teams Charge Operator Relationship Specialty Start Date End Date Leana Isaacs FNP [address] [place] [address] PCP - General Family Medicine 08/21/24 documented as of this encounter
--- OUTSIDE RECORDS SUMMARY | 2024-11-01 17:11 | XMS_ITS | Encounter Summary ---
Author Organization [employer] Address [address] [place] [address] Care Team Providers Care Wet End Helper Name Role Phone Leana Isaacs CEPHALOMETRIC ANALYST Primary Care Provider [phone] Encounter Details Date Type Department Care Team [...] Description 11/06/2024 9:30 AM EST Office Visit [facility] [address] [place], [place] [phone] Leana Isaacs FNP [address] [place], [place] [phone] documented as of this encounter Procedures Procedure Name Priority Date/Time Associated Diagnosis Comments CBC WITH AUTO DIFFERENTIAL Routine 10/13/2024 8:34 AM EST documented in this encounter Results * (ABNORMAL) CBC auto differential (10/13/2024 8:34 AM EST) White Blood Count 16.5(H) 4.8 - 10.8 X10*3/uL [facility] Red Blood Count 5.68 4.60 - 5.80 X10*6/uL [facility] Hemoglobin 17.0 14.0 - 18.0 g/dl [facility] Hematocrit 48.6 42.0 - 52.0 % [facility] Mean Corpuscular Volume 85.6 80.0 - 98.0 fL [facility] Mean Corpuscular Hemoglobin 29.9 27.0 - 33.0 pg [facility] Mean Corpuscular HGB Conc 35.0 31.0 - 36.0 g/dl [facility] Red Cell Distribution Width 13.1 11.0 - 16.0 % [facility] Platelet Count 317 160 - 400 X10*3/uL [facility] Mean Platelet Volume 8.4(L) 9.4 - 12.4 fL [facility] Neutrophils Percent Auto 75.1(H) 45 - 73 % [facility] Imm Gran Pct Auto 0.4 0.0 - 0.4 % [facility] Lymphocytes Percent Auto 16.9(L) 20 - 40 % [facility] Monocytes Percent Auto 5.0 2 - 11 % [facility] Eosinophils Percent Auto 2.1 0 - 4 % [facility] Basophils Percent Auto 0.5 0 - 2 % [facility] NRBC Pct Auto 0.0 0.0 - 0.2 /100WBC [facility] Neutrophils Absolute Auto 12.4(H) 2.0 - 8.3 x10*3/uL [facility] Imm Gran Abs Auto 0.07(H) 0.00 - 0.03 X10*3/uL [facility] Lymphocytes Absolute Auto 2.8 1.2 - 4.9 X10*3/uL [facility] Monocytes Absolute Auto 0.8 0.1 - 1.2 X10*3/uL [facility] Eosinophils Absolute Auto 0.3 0.0 - 0.4 X10*3/uL [facility] Basophils Absolute Auto 0.1 0.0 - 0.2 X10*3/uL [facility] NRBC Abs Auto 0.000 0.0 - 0.012 X10*3/uL [facility] 10/13/2024 8:34 AM EST 10/13/2024 8:37 AM EST us Generic External Data Provider LAB BLOOD ORDERAB LES Final Result [facility] [address] [place] [address] [phone] documented in this encounter Visit Diagnoses Not on filedocumented in this encounter Additional Health Concerns Assessment Noted Time PHQ-9 Depression Total Score: 13 025 2:01 PM EST documented as of this encounter Care Teams Wet End Helper Relationship Specialty Start Date End Date Leana Isaacs FNP [address] [place] [phone] PCP - General Family Medicine 08/21/24 documented as of this encounter
--- OUTSIDE RECORDS SUMMARY | 2024-11-01 17:11 | XMS_ITS | Clinical Summary ---
Author Organization [employer] Address [address] [facility] [address] [place] [address] Care Team Providers Care Facing Cutting Machine Operator Name Role Phone Leana Isaacs CREDIT CARD INTERVIEWER Primary Care Provider [phone] Allergies Active Allergy Reactions Criticality Noted Date Comments Amlodipine Palpitations Medium 09/17/2024 Chlorthalidone 09/17/2024 Medications * This document contains information received from the source organization and may not represent a complete record from that organization. metoprolol succinate XL (Toprol-XL) 100 MG 24 hr tablet TAKE 1 TABLET BY MOUTH EVERY DAY 90 tablet 1 04/30/20 24 Active lisinopril 40 MG tabletIndicatio ns:Primary hypertension TAKE 1 TABLET BY MOUTH EVERY DAY IN THE MORNING 90 tablet 1 04/30/20 24 Active Omeprazole 20 MG tablet delayed-release Indications:Gas troesophageal reflux disease, unspecified whether esophagitis present Take 1 tablet (20 mg) by mouth Once per day. 30 tablet 09/20/19 25 Active nicotine polacrilex (Nicorette) 4 MG gumIndications: Tobacco use disorder Chew 1 each (4 mg) if needed for smoking cessation (Every 2-4 hrs prn). 100 each 1 09/20/19 25 Active NIFEdipine XL (Procardia XL) 60 MG 24 hr tablet Take 1 tablet (60 mg) by mouth Once per day. Do not crush, chew, or split. 30 tablet 11 10/18/19 25 026 Active Tirzepatide-Vadim ght Management (Zepbound) 2.5 MG/0.5ML solution auto-injectorIn dications:Class 2 obesity with body mass index (BMI) of 39.0 to 39.9 in adult, unspecified obesity type, unspecified whether serious comorbidity present Inject 0.5 mL (2.5 mg) under the skin 1 (one) time per week. 2 mL 10/20/19 25 025 Active FLUoxetine (PROzac) 10 MG tabletIndicatio ns:Anxiety and depression Take 1 tablet (10 mg) by mouth Once per day. 30 tablet 1 10/29/19 25 025 Active NIFEdipine XL (Procardia XL) 30 MG 24 hr tabletIndicatio ns:Resistant hypertension Take 1 tablet (30 mg) by mouth Once per day. Do not crush, chew, or split. 30 tablet 11 09/20/19 25 025 Discontinued(In effective) FLUoxetine (PROzac) 10 MG tabletIndicatio ns:Anxiety and depression Take 1 tablet (10 mg) by mouth Once per day. 30 tablet 09/20/19 25 025 Discontinued(Re order (will not trigger notification to Pharmacy)) FLUoxetine (PROzac) 10 MG tabletIndicatio ns:Anxiety and depression TAKE 1 TABLET BY MOUTH EVERY DAY 30 tablet 10/29/19 25 025 Discontinued(Du plicate order (will not trigger notification to Pharmacy)) Active Problems Problem Noted Date Diagnosed Date [...] upper esophagitis endoscopy was recommended. Referral to grain shoveler Omeprazole prescribed Avoid provocative foods: citrus, alcohol, [...] organization. Date Type Department Care Team Description 10/30/2024 Telephone [facility] [address] [place] [address] Marine Matamoros [place] Chart Prep 10/30/2024 Telephone [facility] [address] [place] [address] Margarita Catalan RN 10/29/2024 Orders Only [facility] [address] [place] [address] Leana Isaacs FNP Anxiety and depression 10/24/2024 Telephone [facility] [address] [facility] [place] [address] Leana Isaacs FNP Prior Authorization (Zepbound) 10/23/2024 Telephone [facility] [place] [address] Marine Matamoros [place] Chart Prep 10/18/2024 10:00 AM EST Office Visit [facility] [place] [address] Leana Isaacs FNP Resistant hypertension (Primary Dx); Erectile dysfunction, unspecified erectile dysfunction type; Tobacco use disorder; Class 2 obesity with body mass index (BMI) of 39.0 to 39.9 in adult, unspecified obesity type, unspecified whether serious comorbidity present; Anxiety and depression 10/18/2024 Refill [facility] [place] [address] Leana Isaacs FNP Anxiety and depression 10/15/[address] [address] Mairne Matamoros [place] Chart Prep 10/13/2024 Orders Only GENERIC EXTERNAL DATA DEPARTMENT Provider, Generic External Data 09/25/2024 Telephone [facility] [place] [address] Leana Isaacs FNP Appointment Request 09/24/2024 2:20 PM EST Office Visit [facility] [place] [address] Malena Balbuena MD Exertional chest pain (Primary Dx); Acute electrocardiogram changes 09/24/2024 Orders Only GENERIC EXTERNAL DATA DEPARTMENT Provider, Generic External Data 09/24/2024 Telephone [facility] [place] [address] Leana Isaacs FNP Nurse Triage 09/24/[address] [address] Leana Isaacs FNP FYI 09/20/2024 1:00 PM EST Office Visit [address] [place] [address] Leana Isaacs FNP Well adult on routine [...] mother; Other male erectile dysfunction 09/17/[address] [address] Marine [place] Chart Prep 09/11/2024 Patient Outreach [address] [address] Leana Isaacs FNP Pre-visit Planning ([facility] screening was completed on 07/22/2024) 08/27/2024 11:30 AM EST Clinical Support [address] [address] Telma Hannah RN Essential hypertension 08/16/[address] [address] Leana Isaacs FNP Med Refill 08/13/2024 11:00 AM EST Clinical Support [address] [address] Libby Roberts, NELIA Essential hypertension 08/13/2024 Travel from Last 3 Months Immunizations Name [...] Description 11/06/2024 9:30 AM EST Office Visit [facility] [address] [place], [place] [phone] Leana Isaacs FNP [address] [place], [place] [phone] Health Maintenance Due Date Last Done Comments [...] 75+ series) 2065 IPV Vaccines Completed 08/30/1991, 04/0 01/1991, 1990, Additional history exists Hepatitis B [...] Procedure Name Priority Date/Time Associated Diagnosis Comments LH Routine 10/23/2024 8:58 AM EST Erectile dysfunction, unspecified erectile dysfunction type TESTOSTERONE, FREE (DIALYSIS) AND TOTAL,MS Routine 10/23/2024 8:58 AM EST Erectile dysfunction, unspecified erectile dysfunction type PROLACTIN, DILUTION STUDY Routine 10/23/2024 8:58 AM EST Erectile dysfunction, unspecified erectile dysfunction type SEX HORMONE BINDING GLOBULIN Routine 10/23/2024 8:58 AM EST Erectile dysfunction, unspecified erectile dysfunction type FSH Routine 10/23/2024 8:58 AM EST Erectile dysfunction, unspecified erectile dysfunction type CBC WITH AUTO DIFFERENTIAL Routine 10/13/2024 8:34 [...] Recently Relevant to Health Maintenance Results * Prolactin, Dilution Study (10/23/2024 8:58 AM EST) Prolactin, Undiluted 4.0 2.0 - 18.0 ng/mL [facility] Comment:Verified by repeat a nalysis. Prolactin, Diluted SEE NOTE 2.0 - 18.0 ng/mL [facility] Comment:Result confirmed by 1:100 dilution. No high dosehook effect detected.Prolactin dilution studies are done to determine ifthere is a high-dose hook effect (i.e. a non-linearassay response due to a very high concentration ofProlactin). This is reported to occur at Prolactinconcentrations at or above 30,000 ng/mL.This test is not recommended for identifyingmacroprolactin. The [facility], Prolactin, Total and Monomeric is therecommended test (Order code [id number]).THIS TEST WAS PERFORMED AT:[facility] [place] [id number] ARIZMENDI MD Blood Venous blood specimen / Unknown 10/23/2024 8:58 AM EST 10/23/2024 11:10 AM EST us Leanatomi Isaacs CREDIT CARD INTERVIEWER LAB BLOOD ORDERABLES Final Res ult [facility] [address] [place] [phone] * Sex Hormone Binding Globulin (SHBG) (10/23/2024 8:58 AM EST) Sex Hormone Binding Globulin 15 10 - 50 nmol/L [facility] Comment:THIS TEST WAS PERFOR MED AT:[facility] [place] [id number] ARIZMENDI MD Blood Venous blood specimen / Unknown 10/23/2024 8:58 AM EST 10/23/2024 11:10 AM EST Leana Isaacs CREDIT CARD INTERVIEWER LAB BLOOD ORDERABLES Final Res ult [facility] [address] [place] [address] [phone] * Testosterone, Free (Dialysis) And Total, MS (10/23/2024 8:58 AM EST) Testosterone, Total 285 250 - 1100 ng/dL [facility] Comment:For additional infor yin, please refer tohttp://education.[employer]/faq/[email or web address](This link is being provided for informational/educational purposes only.)This test was developed and its analytical performancecharacteristics have been determined by [employer] [place], [place]. It hasnot been cleared or approved by the U.S. Food and DrugAdministration. This assay has been validated pursuantto the CLIA regulations and is used for clinicalpurposes. Testosterone, Free 75.2 35.0 - 155.0 pg/mL [facility] Comment:This test was develo ped and its analytical performancecharacteristics have been determined by [employer] [place], [place]. It hasnot been cleared or approved by the U.S. Food and DrugAdministration. This assay has been validated pursuantto the CLIA regulations and is used for clinicalpurposes.THIS TEST WAS PERFORMED AT:[employer] [id number] [place] [id number] RAMIREZ MD,PHD Blood Venous blood specimen / Unknown 10/23/2024 8:58 AM EST 10/23/2024 11:10 AM EST Leana [facility] LAB BLOOD ORDERABLES Final Res ult Performing Organization Address [facility] Co de Phone Number [facility] [address] [place] [phone] * LH (10/23/2024 8:58 AM EST) Lutenizing Hormone 2.7 1.5 - 9.3 mIU/mL [facility] Comment:THIS TEST WAS PERFOR MED AT:[employer] [address] [id number] ARIZMENDI MD Blood Venous blood specimen / Unknown 10/23/2024 8:58 AM EST 10/23/2024 11:10 AM EST [facility] LAB BLOOD ORDERABLES Final Res ult Performing Organization Address [facility] de Phone Number [facility] [address] [place] [phone] * FSH (10/23/2024 8:58 AM EST) Follicle Stimulating Hormone 2.7 1.4 - 12.8 mIU/mL [facility] Comment:THIS TEST WAS PERFOR MED AT:[employer] [address] [id number] ARIZMENDI MD Blood Venous blood specimen / Unknown 10/23/2024 8:58 AM EST 10/23/2024 11:10 AM EST [facility] LAB BLOOD ORDERABLES Final Res ult Performing Organization Address [facility] de Phone Number [facility] [address] [place] [phone] * (ABNORMAL) CBC auto differential (10/13/2024 8:34 AM EST) Only the most recent of3 resultswithin the time period is included. White Blood Count 16.5(H) 4.8 - 10.8 X10*3/uL [facility] Red Blood Count 5.68 4.60 - 5.80 X10*6/uL [facility] Hemoglobin 17.0 14.0 - 18.0 g/dl [facility] Hematocrit 48.6 42.0 - 52.0 % [facility] Mean Corpuscular Volume 85.6 80.0 - 98.0 fL [facility] Mean Corpuscular Hemoglobin 29.9 27.0 - 33.0 pg [facility] Mean Corpuscular HGB Conc 35.0 31.0 - 36.0 g/dl [facility] Red Cell Distribution Width 13.1 11.0 - 16.0 % [facility] Platelet Count 317 160 - 400 X10*3/uL [facility] Mean Platelet Volume 8.4(L) 9.4 - 12.4 fL [facility] Neutrophils Percent Auto 75.1(H) 45 - 73 % [facility] Imm Gran Pct Auto 0.4 0.0 - 0.4 % [facility] Lymphocytes Percent Auto 16.9(L) 20 - 40 % [facility] Monocytes Percent Auto 5.0 2 - 11 % [facility] Eosinophils Percent Auto 2.1 0 - 4 % [facility] Basophils Percent Auto 0.5 0 - 2 % [facility] NRBC Pct Auto 0.0 0.0 - 0.2 /100WBC [facility] Neutrophils Absolute Auto 12.4(H) 2.0 - 8.3 x10*3/uL [facility] Imm Gran Abs Auto 0.07(H) 0.00 - 0.03 X10*3/uL [facility] Lymphocytes Absolute Auto 2.8 1.2 - 4.9 X10*3/uL [facility] Monocytes Absolute Auto 0.8 0.1 - 1.2 X10*3/uL [facility] Eosinophils Absolute Auto 0.3 0.0 - 0.4 X10*3/uL [facility] Basophils Absolute Auto 0.1 0.0 - 0.2 X10*3/uL [facility] NRBC Abs Auto 0.000 0.0 - 0.012 X10*3/uL [facility] 10/13/2024 8:34 AM EST 10/13/2024 8:37 AM EST us Generic External Data Provider LAB BLOOD ORDERAB LES Final Result Performing Organization Address [facility] Phone Number [facility] [address] [place] [phone] * High Sensitivity Troponin I (09/24/2024 3:59 PM EST) Only the most recent of2 resultswithin the time period is included. [facility] TROPONIN I HIGH SENSITIVITY <2.7 <3.5 - 35.0 ng/L [facility] Comment:The Fuller high sens itivity Troponin-I results should beused in conjunction with other diagnostic information suchas ECG, clinical observations and information, and patientsymptoms to aid in the diagnosis of [place]. 09/24/2024 3:59 PM EST 09/24/2024 4:02 PM EST us Generic External Data Provider LAB BLOOD ORDERAB LES Final Result Performing Organization Address [facility] Co de Phone Number [facility] [address] [place] [phone] * ECG 12 lead (09/24/2024 3:15 PM EST) Narrative Malena Balbuena MD - 09/24/2024 3:15 PM EST RBBB 86 BPM us Malena Balbuena MD ECG ORDERABLES Final Resu lt * SARS-CoV-2 RNA, Influenza A/B, and RSV RNA, Ql NAAT (09/24/2024 2:06 PM EST) [facility] Influenza A PCR NEGATIVE Negative [facility] Influenza B PCR NEGATIVE Negative [facility] Resp Syncy Virus RNA Qual PCR NEGATIVE Negative [facility] SARS COV2 PCR NEGATIVE Negative [facility] Comment:All test results mus t be [...] use by authorized laboratories.Testing performed on the [employer] GeneXpert utilizingreal-time RT-PCR.All SARS CoV2 and positive influenza A/B results arereported to [facility]. 09/24/2024 2:06 PM EST 09/24/2024 2:10 PM EST [employer] External Data Provider LAB MICROBIOLOGY - GENERAL ORDERABLES Final Result Performing Organization Address [facility] de Phone Number [facility] [address] [place] [phone] * Prothrombin Time-INR (09/24/2024 2:06 PM EST) Prothrombin Time 11.5 10.9 - 12.4 SEC [facility] INTERNATIONAL NORM RATIO 1.0 0.9 - 1.1 [facility] Comment:INTERNATIONAL NORMAL IZED RATIO (INR) REFERENCE [...] ORDERAB LES Final Result Performing Organization Address [facility] Co de Phone Number [facility] [address] [place] [phone] * B Type Natriuretic Peptide (BNP) (09/24/2024 2:06 PM EST) [facility] B Type Natriuretic Peptide 19 <100 pg/mL [facility] Comment:For those patients w ho are being treated with Natrecor(nesiritide, recombinant BNP), BNP testing should beperformed at least two hours post treatment in order toensure that only endogenous levels of BNP are detected. 09/24/2024 2:06 PM EST 09/24/2024 2:10 PM EST us Generic External Data Provider LAB BLOOD ORDERAB LES Final Result Performing Organization Address City/[facility]/ZIP Co de Phone Number [facility] [address] [place] [phone] * Magnesium (09/24/2024 2:06 PM EST) [facility] Magnesium 2.2 1.6 - 2.6 mg/dL [facility] 09/24/2024 2:06 PM EST 09/24/2024 2:10 PM EST [employer] External Data Provider LAB BLOOD ORDERAB LES Final Result Performing Organization Address City/[facility]/ZIP Co de Phone Number [facility] [address] [place] [phone] * Hepatic Function Panel (09/24/2024 2:06 PM EST) [facility] Bilirubin, Total 0.5 0.0 - 1.0 mg/dL [facility] Bilirubin, Direct 0.1 0.0 - 0.5 mg/dL [facility] Aspartate Amino Transferase 25 5 - 37 U/L [facility] Alanine Aminotransferase 36 0 - 40 U/L [facility] Total Protein 7.9 6.5 - 8.0 g/dL [facility] Albumin Level 4.5 3.5 - 5.0 g/dL [facility] Alkaline Phosphatase 81 39 - 117 U/L [facility] 09/24/2024 2:06 PM EST 09/24/2024 2:10 PM EST us Generic External Data Provider LAB BLOOD ORDERAB LES Final Result [facility] [address] [place] [phone] * (ABNORMAL) Basic Metabolic Panel (09/24/2024 2:06 PM EST) Only the most recent of2 resultswithin the time period is included. Sodium 140 135 - 145 mmol/L [facility] Potassium 4.5 3.3 - 5.1 mmol/L [facility] Chloride 109(H) 96 - 108 mmol/L [facility] Carbon Dioxide 25 22 - 29 mmol/L [facility] Anion Gap 11(L) 12 - 20 [facility] Urea Nitrogen (BUN) 10 9 - 16 mg/dL [facility] Creatinine, Serum 1.00 0.5 - 1.4 mg/dL [facility] Creatinine Clr Calc Pharmacy 140.0 [facility] Comment:eGFR (calculated fro m the MDRD study equation) and eCrCl(calculated from the Cockcroft-Gault equation) are based ondifferent parameters and may not yield comparable results.If eCrCl result is absurd, please check patient'sheight/weight. Estimated Glomerular Filt Rate >60 [facility] Comment:Chronic Kidney Disea se: Estimated GFR < 60 mL/min/1.82b6Dhrafx Kidney Disease: Estimated GFR < 15 mL/min/1.73m2 Glucose 84 60 - 115 mg/dL [facility] Calcium 9.1 8.4 - 10.2 mg/dL [facility] 09/24/2024 2:06 PM EST 09/24/2024 2:10 PM EST us Generic External Data Provider LAB BLOOD ORDERAB LES Final Result [facility] [address] [place] [phone] * XR Chest 2 Views (09/24/2024 1:24 PM EST) Anatomical Region Laterality Modality Chest Radiographic Liz ging 09/24/2024 1:24 PM EST Narrative 09/24/2024 2:07 PM EST ? [facility] ?[address] ?[place] [address] ?XRay Report ? Signed ? Patient: Jose Aparicio W ?MR#: [id number] ?? 9 ? : 1990 ?Acct:[id number] ? Age/Sex: 34 / M ?ADM Date: 09/24/24 ? Loc: HO.ED ? Attending Dr: ? Ordering Physician: Susie Borden ?? Date of Service: 09/24/24 ?? Procedure(s): XR chest 2V ?? Accession Number(s): [id number] ? cc: [facility]; Susie Borden ? EXAMINATION: ?? XR CHEST [...] DD/ 1324 ? TD/TT: 09/24/24 1358 ? [employer] Operator: ? Procedure Note Gwendolyn Najera - 09/24/[address] [address] XRay Report Signed Patient: Jose Aparicio WMR#: [id number] 9 : 1990Acct:[id number] Age/Sex: 34 / MADM Date: 09/24/24 Loc: HO.ED Attending Dr: Ordering Physician: Susie Borden Date of Service: 09/24/24 Procedure(s): XR chest 2V Accession Number(s): [id number] cc: [facility]; Susie Borden EXAMINATION: XR CHEST CLINICAL INFORMATION: [...] by: Jacques Mcclelland MD 09/24/2024 02:04 PM EST Dictated By: Jacques Mcclelland MD Signed By: <Electronically signed by Jacques Mcclelland MD in OV> 09/24/24 1404 DD/ 1324 TD/TT: 09/24/24 1358 [employer] Operator: [facility] External Provider IMG XR PROCEDURES Final [...] Media Lot # [id number] Lot# Expiration Date 82 Urine 09/20/2024 3:29 PM EST Leana MITCHELLP POINT OF CARE TEST ENTER/EDIT ORDERABLES Final Result * Hemoglobin A1c (09/20/2024 3:29 PM EST) Hemoglobin A1c 5.4 <6.0 % [facility] Comment:Hemoglobin A1C Refer ence Range Adults: 4.8 - 6.0 % Non diabetic: < 6.0 % Goal: < 7.0 %Additional Action Suggested: > 8.0 %Note: Hemoglobin A1c results are invalid for patients with abnormal amounts of HbF. Blood transfusions may impact the HbA1c concentration in the patient sample. Estimated Average Glucose 108 mg/dL [facility] Comment:eAG = Estimated ave rage glucose which is %A1C expressed asaverage glucose, using the formula of the T5M-JgivbbqRthjhzd Glucose study (ADAG), Diabetes Care, Vol.31,#8,Apr. 2007 Blood Venous blood specimen / Unknown 09/20/2024 3:29 PM EST 09/20/2024 4:00 PM EST us [employer] [facility] LAB BLOOD ORDERABLES Final Res ult Performing Organization Address City/[facility]/ZIP Co de Phone Number [facility] [address] [place] [phone] * Albumin, Random Urine W/Creatinine (09/20/2024 3:19 PM EST) Creatinine, Urine 180.60 mg/dL [facility] Microalbumin Urine 23.0 mg/L [facility] Microalbum Creatinine Ratio Ur 12.7 <30 ug/mg cr [facility] Comment:Albumin/Creatinine R atio Reference Ranges: Normal: < 30 ug/mg creatinine Microalbuminuria: 30 - 300 ug/mg creatinineClinical Albuminuria: > 300 ug/mg creatinine Urine (Urine, Random) 09/20/2024 3:19 PM EST 09/20/2024 4:42 PM EST [employer] [facility] LAB URINE ORDERABLES Final Res ult [facility] [address] [place] [phone] * Chlamydia/N. Gonorrhoeae RNA, TMA, Urogenitial (09/20/2024 3:19 PM EST) CT PCR NOT DETECTED Not Detect. [facility] Comment:A not detected test result does [...] psychologicalconsequences. NG PCR NOT DETECTED Not Detect. [facility] Comment:A not detected test result does [...] PM EST 09/20/2024 4:42 PM EST Narrative [facility] - 09/21/2024 1:19 PM EST Urine Leana Isaacs [facility] LAB MICROBIOLOGY - GENERAL ORD ERABLES Final Result [facility] [address] [place] [phone] * TSH W/Reflex to FT4 (09/20/2024 12:59 PM EST) TSH reflex Free T4 1.38 0.32 - 4.0 uIU/mL [facility] Blood Venous blood specimen / Unknown 09/20/2024 12:59 PM EST 09/20/2024 4:00 PM EST us Leana Isaacs CREDIT CARD INTERVIEWER LAB BLOOD ORDERABLES Final Res ult Performing Organization Address City/[facility]/ZIP Co de Phone Number [facility] [address] [place] [phone] * (ABNORMAL) Lipid Panel, Standard (09/20/2024 12:59 PM EST) Triglycerides 219(H) <150 mg/dL [facility] Comment:Desirable Triglyceri de: less than 150 mg/dLBorderline High Triglyceride 150-199 mg/dLHigh Triglyceride: 200-499 mg/dLVery High Triglyceride: greater than or equal to 5OO mg/dL Cholesterol 163 <200 mg/dL [facility] Comment:Desirable Cholestero l: less than 200 mg/dLBorderline High Cholesterol: 200-239 mg/dLHigh Cholesterol: greater than 239 mg/dL LDL Cholesterol Calculated 90 <100 mg/dL [facility] Comment:Desirable LDL: less than 100 mg/dLNear Optimal/Above Optimal LDL: 110- 129 mg/dLBorderline High LDL: 130-159 mg/dLHigh LDL: 160-189 mg/dLVery High LDL: greater than or equal to 190 mg/dL HDL Cholesterol 30(L) >40 mg/dL [facility] Comment:Desirable HDL: great er than 40 mg/dL Note: This HDL assay may give artificially low results in patients with liver disease. Blood Venous blood specimen / Unknown 09/20/2024 12:59 PM EST 09/20/2024 4:00 PM EST us Leana Isaacs CREDIT CARD INTERVIEWER LAB BLOOD ORDERABLES Final Res ult [facility] [address] [place] [phone] * HEPATITIS C AB W/REFL TO HCV RNA, QN, PCR (07/28/2021 10:04 AM EST) HEPATITIS C ANTIBODY NON-REACT MARLA NON-REACT MARLA [facility] INDEX 0.37 <1.00 [facility] Comment: ?? HCV antibody was non-reactive. There is no laboratory ?? evidence of HCV infection. ?? In most cases, no further action is required. However, if recent HCV exposure is suspected, a test for HCV RNA (test code 50676) is suggested. ?? For additional information please refer to http://Pembe Panjur.[employer] Systems/faq/IJM17h5 (This link is being provided for informational/ educational purposes only.) ?? 07/28/2021 10:0 4 AM EST us Meg Pires CREDIT CARD INTERVIEWER HISTORICAL/NON ORDERABLE LABS Final Result Performing Organization Address [facility] Co de Phone Number [facility] [address] * HIV 1/2 ANTIGEN/ANTIBODY,FOURTH GENERATION W/RFL (07/28/2021 10:04 AM EST) HIV-1/2 ANTIGEN AND ANTIBODIES, 4TH GENERATION W/ REFLEX NON-REACT MARLA NON-REACT MARLA [facility] Comment: HIV-1 antigen and HIV-1/HIV-2 [...] ? For additional information please refer to http://education.Wir3s.letsmote.com/faq/SSA256 (This link is being provided for informational/ educational purposes only.) ? The performance of this assay has not been clinically validated in patients less than 2 years old. ?? 07/28/2021 10:0 4 AM EST us Meg Pires CREDIT CARD INTERVIEWER LAB BLOOD ORDERABLES Final Res ult [facility] [address] from Last 3 Months or Most Recently Relevant to Health Maintenance [facility] Care Teams Facing Cutting Machine Operator Relationship Specialty Start Date End Date Leana Isaacs FNP [address] [place] [address] PCP - General Family Medicine 08/21/24
--- OUTSIDE RECORDS SUMMARY | 2024-11-01 17:11 | XMS_ITS | Clinical Summary ---
Author Organization [facility] Address [address] [place] [address] Care Team Providers Care Dermatologist Name Role Phone Unavailable Primary Care Provider [...] Treatment Not on file Insurance JOON COLIN [facility]
--- OUTSIDE RECORDS SUMMARY | 2024-11-01 17:11 | XMS_ITS | Encounter Summary ---
Author Organization [employer] Address [address] [place] [address] Care Team Providers Care Broker Associate Name Role Phone Henrique Isaacsupe PROBLEM MANAGER Primary Care Provider [phone] Reason for Visit * Reason Onset Date Comments Chart Prep 10/23/2024 Encounter Details Date Type Department Care Team ([facility] Contact Info) Description 10/23/2024 Telephone [facility] MEDICINE [address] [place] [address] Marine Matamoros MA Chart Prep Social History [...] Telephone Encounter - Marine Matamoros MA - 10/23/2024 3:02 PM EST Chart Prep Labs: not done Images: done Vaccines due: Covid, Tdap, Hep A, PCV20, Flu Referrals: Nephrology pending appointment Screenings: none Overdue care gaps: none documented in this encounter Plan of Treatment Upcoming Encounters Date Type Department Care Team (Late st Contact Info) Description 11/06/2024 9:30 AM EST Office Visit [facility] MEDICINE [address] [place] [address] Leana Isaacs FNP [address] [place] [address] documented as of this encounter Visit Diagnoses Not on filedocumented in this encounter Additional Health Concerns Assessment Noted Time PHQ-9 Depression Total Score: 13 025 2:01 PM EST documented as of this encounter Care Teams Broker Associate Relationship Specialty Start Date End Date Leana Isaacs FNP [address] [place] [address] PCP - General Family Medicine 08/21/24 documented as of this encounter
--- OUTSIDE RECORDS SUMMARY | 2024-11-01 17:11 | XMS_ITS | Encounter Summary ---
Author Organization [employer] Address [address] [place] [address] Care Team Providers Care Seed Sorter Name Role Phone Leana Isaacs Primary Care Provider [phone] Encounter Details Date Type Department Care Team ([facility] Contact Info) Description 10/29/2024 Orders Only [facility] MEDICINE [address] [place] [address] Leana Isaacs FNP [address] [place] [address] Anxiety and depression Social History Tobacco Use [...] AM EDT documented as of this encounter Progress Notes * LENA Sullivan - 10/29/2024 3:44 PM EST All done documented in this encounter Plan of Treatment Upcoming Encounters Date Type Department Care Team (Late st Contact Info) Description 11/06/2024 9:30 AM EST Office Visit [facility] MEDICINE [address] [place] [address] Leana Isaacs FNP [address] [place] [address] documented as of this encounter Visit Diagnoses Diagnosis Anxiety and depression documented in this encounter Additional Health Concerns Assessment Noted Time PHQ-9 Depression Total Score: 13 025 2:01 PM EST documented as of this encounter Care Teams Seed Sorter Relationship Specialty Start Date End Date Leana Isaacs FNP [address] [place] [address] PCP - General Family Medicine 08/21/24 documented as of this encounter
--- OUTSIDE RECORDS SUMMARY | 2024-11-01 17:11 | XMS_ITS | Encounter Summary ---
Author Organization [employer] Address [address] [place] [address] Care Team Providers Care Metal Buildings Assembler Name Role Phone Henrique Isaacsupe LEAD MATERIAL HANDLER Primary Care Provider [phone] Reason for Visit * Reason Onset Date Comments Chart Prep 10/30/2024 Encounter Details Date Type Department Care Team ([facility] Contact Info) Description 10/30/2024 Telephone [facility] MEDICINE [address] [place] [address] Marine Matamoros MA Chart Prep Social History [...] Telephone Encounter - Marine Matamoros MA - 10/30/2024 3:22 PM EST Chart Prep Labs: done Images: done Vaccines due: Covid, Tdap, Hep A, PCV20, Flu Referrals: pending appt Screenings: none Overdue care gaps: none documented in this encounter Plan of Treatment Upcoming Encounters Date Type Department Care Team (Late st Contact Info) Description 11/06/2024 9:30 AM EST Office Visit [facility] MEDICINE [address] [place] [address] Leana Isaacs FNP [address] [place] [address] documented as of this encounter Visit Diagnoses Not on filedocumented in this encounter Additional Health Concerns Assessment Noted Time PHQ-9 Depression Total Score: 13 025 2:01 PM EST documented as of this encounter Care Teams Metal Buildings Assembler Relationship Specialty Start Date End Date Leana Isaacs FNP [address] [place] [address] PCP - General Family Medicine 08/21/24 documented as of this encounter
--- OUTSIDE RECORDS SUMMARY | 2024-11-01 17:11 | XMS_ITS | Encounter Summary ---
Author Organization [employer] Address [address] [place] [address] Care Team Providers Care Final Finisher Name Role Phone Leana Isaacs Primary Care Provider [phone] Reason for Visit * Reason Onset Date Comments Appointment Request 09/25/2024 Encounter Details Date Type Department Care Team ([facility] Contact Info) Description 09/25/2024 Telephone [facility] MEDICINE [address] [place] [address] Leana Isaacs FNP [address] [place] [address] Appointment Request Social History Tobacco Use Types [...] requesting schedule f/u b/p appt from a [facility] recent visit. [phone] documented in this encounter Plan of Treatment Upcoming Encounters Date Type Department Care Team (Late st Contact Info) Description 11/06/2024 9:30 AM EST Office Visit [facility] MEDICINE [address] [place] [address] Leana Isaacs FNP [address] [place] [address] documented as of this encounter Visit Diagnoses Not on filedocumented in this encounter Additional Health Concerns Assessment Noted Time PHQ-9 Depression Total Score: 13 025 2:01 PM EST documented as of this encounter Care Teams Final Finisher Relationship Specialty Start Date End Date Leana Isaacs FNP [address] [place] [address] PCP - General Family Medicine 08/21/24 documented as of this encounter
== END 2024-11-01 15:43 | disposition home or self-care (01) ==
PROVIDERS: PCP Nurse Practitioner Family; Referring Provider Nurse Practitioner Family; Visit Provider Internal Medicine Nephrology
DX: I10 Essential (primary) hypertension (principal)
CPT/HCPCS: 99204

== ENCOUNTER → 2024-11-01 14:59 | Outpatient (BNVA) | payer MEDICAID, SELFPAY | PROVIDERS: PCP Nurse Practitioner Family; Referring Provider Nurse Practitioner Family; Visit Provider Internal Medicine Nephrology | DX: I10 Essential (primary) hypertension (principal) | CPT/HCPCS: 99202 ==

== ENCOUNTER 2024-11-03 18:07 | Emergency (ER) | payer MEDICAID, SELFPAY ==
--- NOTE | ~2024-11-03 | CT_ITS ---
CLINICAL HISTORY: LLQ pain CT ABDOMEN AND PELVIS WITHOUT CONTRAST COMPARISON: 10/13/2024. FINDINGS: Colonic diverticula are noted. There is stranding/inflammation and trace fluid adjacent to a few sigmoid diverticula, seen on axial images [id number] of series 4. This is compatible with acute diverticulitis. No abscess or definite free air. Portions of the colon are significantly underdistended which precludes accurate assessment for wall thickening. Appendix is visualized, and there is no evidence of acute appendicitis. No evidence of a bowel obstruction. There is minimal atelectatic change in the lower lungs. Although underdistended, the distal esophagus appears thick-walled. This is similar to the prior study. Esophagitis is questioned. This can be correlated with patient history/symptoms and laboratory values. Stomach is underdistended which limits assessment. What is thought to represent some CT artifact is noted in association with the liver. Fatty infiltration of the liver is again noted. No visible gallstone. No pericholecystic inflammation. Common bile duct is not dilated. Pancreas is unremarkable. Spleen is unremarkable. Thickening/nodularity of the adrenal glands is again noted, with an approximately 1.8 cm left adrenal adenoma noted on axial image 277. Both kidneys are unremarkable. No hydronephrosis or obstructing stone. Urinary bladder is underdistended which limits assessment. No evidence of an abdominal aortic aneurysm. Subcentimeter nonenlarged lymph nodes are noted in the mesentery. No evidence of a bowel containing hernia. Tiny fat containing umbilical hernias are again noted. Again noted are sclerotic changes and erosive changes in association with the bilateral sacroiliac joints. Degenerative changes are noted in the lumbar spine and visualized thoracic spine. Mild multilevel remote compression deformities are noted involving the lower thoracic/upper lumbar spine. IMPRESSION: 1. Findings compatible with acute diverticulitis involving the sigmoid colon. No abscess or free air. No evidence of a bowel obstruction. 2. The distal esophagus is underdistended but appears thick-walled. This is similar to the prior study. Esophagitis is questioned. This can be correlated with patient history/symptoms and laboratory values. 3. Bilateral sacroiliac joint sclerotic changes and erosive changes are again noted. This is also noted previously and can be correlated with patient history. 4. Additional findings are detailed above. This document has been electronically signed by: Boby Garcia M.D. on 11/03/2024 21:22:25
[2024-11-03 18:33] VITALS: BP 134/82; PULSE 86; RESP 16; TEMP 36.6; O2SAT 97; BMI 38.5
--- NOTE | 2024-11-03 18:55 | ED.GENADULT ---
HPI - General Adult General Chief complaint: Abdominal Pain Stated complaint: diverticulitis flare up Time Seen by Provider: 11/03/24 21:18 Source: patient Mode of arrival: ambulatory Limitations: no limitations History of Present Illness ED Provider: Dr. Annette Auguste HPI narrative: Patient comes to the emergency room complaining of left lower quadrant pain that started earlier today. Patient states that is worse when he needs to move his bowels. Patient denies any black stool or blood per rectum. Patient denies any nausea vomiting or diarrhea. Patient complaining of constipation which is chronic for him. Patient denies fever chills, denies URI or UTI symptoms. Patient states that he has been able to eat and drink as usual. Related Data Home Medications ?Medication ?Instructions ?Recorded ?Confirmed lisinopril 40 mg tablet 40 mg PO DAILY 07/18/24 07/18/24 metoprolol succinate 100 mg 100 mg PO DAILY 07/18/24 07/18/24 tablet,extended release 24 hr nifedipine 60 mg tablet,extended 60 mg PO DAILY 11/01/24 release Previous Rx's ?Medication ?Instructions ?Recorded levofloxacin 500 mg tablet 500 mg PO DAILY #9 tabs 11/03/24 metronidazole 500 mg tablet 500 mg PO BID #19 tabs 11/03/24 mineral oil (Fleet Mineral Oil 118 ml ME DAILY PRN constipation 11/03/24 enema) #133 mL polyethylene glycol 3350 17 17 g PO BID PRN laxative effect 11/03/24 gram/dose oral powder (Miralax) #510 grams tramadol 50 mg tablet 50 mg PO BID PRN pain #6 tabs 11/03/24 Allergies Allergy/AdvReac Type Severity Reaction Status Date / Time No Known Allergies Allergy Verified 11/03/24 18:34 Review of Systems Review of Systems: Constitutional : No Weight loss, No Fever, No Chills, No Night Sweats, No Fatigue, No Malaise ENT/Mouth : No Hearing loss, No Ear Pain, No Nasal Congestion, No Sinus Pain, No Hoarseness, No sore throat, No Rhinorrhea, No Swallowing Difficulty Eyes: No Eye Pain, No Swelling, No Redness, No Foreign Body, No Discharge, No Vision Changes Cardiovascular : No Chest Pain, No SOB, No Dyspnea on Exertion, No Orthopnea, No Edema, No Palpitations Respiratory : No Cough, No Sputum, No Wheezing, No Smoke Exposure, No Dyspnea Gastrointestinal : No Nausea, No Vomiting, No Diarrhea, complaining of constipation constant left lower quadrant pain since this morning, 12+ hours Genitourinary : no irregular bleeding, No Dysuria, No Urinary Frequency, No Hematuria, No Urinary Incontinence, No Urgency, No Flank Pain, No Urinary Flow Changes, No Hesitancy Musculoskeletal : No joint pain, No Myalgias, No Joint Swelling Skin : No Skin Lesions, No rash Neuro : No Weakness, No Numbness, No Paresthesias, No Loss of Consciousness, No Dizziness, No Headache Psych : No Anxiety/Panic, No Depression, No SI/HI/AH/VH, No Social Issues, Heme/Lymph: No Bruising, No Bleeding,No Lymphadenopathy Endocrine : No Polyuria, No Polydipsia, No Temperature Intolerance [facility] Past Medical History Medical History Erectile dysfunction Gastroesophageal reflux disease Anxiety and depression Recurrent major depressive disorder Obesity Mild intermittent asthma without complication Hypertriglyceridemia Asthma Tobacco use disorder Diverticulitis of colon with perforation Acute diverticulitis Morbid obesity Surgical History Hx of tonsillectomy Family History Family History (Updated 11/01/24 @ 15:15 by Portia Valentin MA) Brother Hypertension Mother Cancer Hypertension Diabetes Father Cancer Diabetes Hypertension Social History Social History Household Members: Spouse Housing: Apartment Do you presently have visiting nurse or other home services: No Patient Tobacco Use Status: Current everyday Tobacco user Tobacco use type: Cigarette Substance Use Type: Marijuana Advance Directives: No Advance Directives Information Provided: Yes service: No Physical Exam ED Vital Signs: Vital Signs - 24 hr 11/03/24 22:06 Temperature 97.8 F Pulse Rate 86 Respiratory Rate 16 Blood Pressure 134/82 Pulse Oximetry 97 Oxygen Delivery Method Room Air BMI result Body Mass Index 38.5 Const Other: Appearance: Alert. Oriented X3. No acute distress. Eyes: Pupils equal, round and reactive to light. ENT: Pharynx normal. Neck: Normal inspection. Neck supple. No lymph nodes noted. No crepitus CVS: Normal heart rate and rhythm. Pulses normal. Normal S1 and S2 Respiratory: No respiratory distress. Breath sounds normal. No Wheezing. No rales Abdomen: Soft , discomfort to palpation over left lower quadrant, no rebound or guarding Skin: Skin warm and dry. Normal skin color. Normal skin turgor. Extremities: No lower extremity edema. No Lacerations. No Rash Neuro: Oriented X 3. No motor deficit. No sensory deficit. Moving all extremities. No slurred speech. CN 2 through 12 grossly intact Psych: calm, cooperative, normal affect Course Course Course Narrative: RME: 34 year male presents to ED for left lower quadrant abdominal pain. Patient has history of diverticulitis. Positive for left lower quadrant tenderness. Labs ordered Medications Administered Discontinued Medications Generic Name Dose Route Start Last Admin Trade Name Freq PRN Reason Stop Dose Admin Docusate Sodium 200 mg 11/03/24 21:32 11/03/24 22:02 Docusate Sodium 100 Mg Capsule PO 11/03/24 21:33 200 mg ONCE ONE Administration Levofloxacin 500 mg 11/03/24 21:32 11/03/24 22:02 Levofloxacin 500 Mg Tablet PO 11/03/24 21:33 500 mg ONCE ONE Administration Metronidazole 500 mg 11/03/24 21:32 11/03/24 22:02 Metronidazole 500 Mg Tablet PO 11/03/24 21:33 500 mg ONCE ONE Administration Tramadol HCl 50 mg 11/03/24 21:32 11/03/24 22:02 Tramadol Hcl 50 Mg Tablet PO 11/03/24 21:33 50 mg ONCE ONE Administration Medical Decision Making Medical Decision Making [facility] Narrative: My interpretation of labs: Patient's white blood cell count 14.5 which is chronic for the patient. Normal coagulation times, normal chemistry, no UTI CT scan consistent with acute diverticulitis. I offered admission to the patient for diverticulitis treatment. Patient states that he would prefer to be discharged home. Patient was given the 1st dose of Levaquin p.o. and metronidazole. Also, patient was instructed to make sure that he has soft bowel movements. Patient will like to try an enema at home and also instructed to take plenty of fluids with the stool softeners/MiraLax Patient instructed to return immediately to the emergency room if he develops any worsening symptoms or no improvement. Patient agrees with plan. Differential Diagnosis Differential Diagnoses: The differential diagnosis associated with the presentation includes (Diverticulitis, small-bowel obstruction, pyelonephritis) Admission/Observation Consideration of admission/observation: Escalation of care including admission/observation considered (Admission was offered) Lab Data MDM Lab Attestation statement: I reviewed the patient's lab results. 11/03/24 19:24 11/03/24 19:24 Labs: Lab Results 11/03/24 Range/Units 19:24 WBC 14.5 H (4.8-10.8) X10*3/uL RBC 5.13 (4.60-5.80) X10*6/uL Hgb 15.3 (14.0-18.0) g/dl Hct 43.8 (42.0-52.0) % MCV 85.4 (80.0-98.0) fL MCH 29.8 (27.0-33.0) pg MCHC 34.9 (31.0-36.0) g/dl RDW 13.4 (11.0-16.0) % Plt Count 329 (160-400) X10*3/uL MPV 8.1 L (9.4-12.4) fL Immature Gran % (Auto) 0.4 (0.0-0.4) % Neut % (Auto) 61.3 (45-73) % Lymph % (Auto) 30.9 (20-40) % [place] % (Auto) 4.4 (2-11) % Eos % (Auto) 2.6 (0-4) % Baso % (Auto) 0.4 (0-2) % Lymph # (Auto) 4.5 (1.2-4.9) X10*3/uL [place] # (Auto) 0.6 (0.1-1.2) X10*3/uL Eos # (Auto) 0.4 (0.0-0.4) X10*3/uL Baso # (Auto) 0.1 (0.0-0.2) X10*3/uL Abs Immat Gran (auto) 0.06 H (0.00-0.03) X10*3/uL Absolute Neuts (auto) 8.9 H (2.0-8.3) x10*3/uL Absolute Nucleated RBC 0.000 (0.0-0.012) X10*3/uL Nucleated RBC % (auto) 0.0 (0.0-0.2) /100WBC PT 11.9 (10.9-12.4) SEC INR 1.0 (0.9-1.1) APTT 33.8 (26.0-36.8) SEC Sodium 140 (135-145) mmol/L Potassium 3.4 (3.3-5.1) mmol/L Chloride 109 H (96-108) mmol/L Carbon Dioxide 21 L (22-29) mmol/L Anion Gap 13 (12-20) BUN 13 (9-16) mg/dL Creatinine 0.90 (0.5-1.4) mg/dL Estim Creat Clear Calc 151.3 Estimated GFR > 60 Random Glucose 107 (60-115) mg/dL Calcium 8.8 D (8.4-10.2) mg/dL Total Bilirubin 0.9 (0.0-1.0) mg/dL AST 46 H (5-37) U/L ALT 41 H (0-40) U/L Alkaline Phosphatase 80 (39-117) U/L Total Protein 7.3 (6.5-8.0) g/dL Albumin 4.3 (3.5-5.0) g/dL Urine Color Yellow Urine Appearance Clear Urine pH 5.5 (5.0-9.0) Ur Specific [place] <= 1.005 (1.005-1.025) Urine Protein Negative (Neg-Trace) mg/dL Urine Glucose (UA) Negative (Negative) mg/dL Urine Ketones Negative (Negative) mg/dL Urine Blood Negative (Negative) Urine Nitrite Negative (Negative) Ur Leukocyte Esterase Negative (Negative) Independent Interpretation I performed an independent interpretation of an: CT Scan Radiology Impression Discussion of test interpretation with radiology: I have reviewed the radiologist's reading. Radiologist Impression: FINDINGS: Colonic diverticula are noted. There is stranding/inflammation and trace fluid adjacent to a few sigmoid diverticula, seen on axial images [id number] of series 4. This is compatible with acute diverticulitis. No abscess or definite free air. Portions of the colon are significantly underdistended which precludes accurate assessment for wall thickening. Appendix is visualized, and there is no evidence of acute appendicitis. No evidence of a bowel obstruction. There is minimal atelectatic change in the lower lungs. Although underdistended, the distal esophagus appears thick-walled. This is similar to the prior study. Esophagitis is questioned. This can be correlated with patient history/symptoms and laboratory values. Stomach is underdistended which limits assessment. What is thought to represent some CT artifact is noted in association with the liver. Fatty infiltration of the liver is again noted. No visible gallstone. No pericholecystic inflammation. Common bile duct is not dilated. Pancreas is unremarkable. Spleen is unremarkable. Thickening/nodularity of the adrenal glands is again noted, with an approximately 1.8 cm left adrenal adenoma noted on axial image 277. Both kidneys are unremarkable. No hydronephrosis or obstructing stone. Urinary bladder is underdistended which limits assessment. No evidence of an abdominal aortic aneurysm. Subcentimeter nonenlarged lymph nodes are noted in the mesentery. No evidence of a bowel containing hernia. Tiny fat containing umbilical hernias are again noted. Again noted are sclerotic changes and erosive changes in association with the bilateral sacroiliac joints. Degenerative changes are noted in the lumbar spine and visualized thoracic spine. Mild multilevel remote compression deformities are noted involving the lower thoracic/upper lumbar spine. IMPRESSION: 1. Findings compatible with acute diverticulitis involving the sigmoid colon. No abscess or free air. No evidence of a bowel obstruction. 2. The distal esophagus is underdistended but appears thick-walled. This is similar to the prior study. Esophagitis is questioned. This can be correlated with patient history/symptoms and laboratory values. 3. Bilateral sacroiliac joint sclerotic changes and erosive changes are again noted. This is also noted previously and can be correlated with patient history. 4. Additional findings are detailed above. Critical Care Time Critical Care Time Critical Care Time: Yes Total Critical Care Time: 45 Attestation: I have personally provided critical care time. Time includes review of lab data, radiology results, discussion with consultants, and monitoring for potential decompensation. Intervention performed as documented. Discharge Plan Discharge Clinical Impression: Acute diverticulitis Patient Disposition: Home, Self-Care Instructions: Diverticulitis (ED), Diverticulitis Diet (ED) Additional Instructions: Please follow-up with your primary care physician tomorrow. If you have any worsening or new symptoms, please return to the emergency room or call 911 Prescriptions: New levofloxacin 500 mg tablet 500 mg PO DAILY Qty: 9 0RF metronidazole 500 mg tablet 500 mg PO BID Qty: 19 0RF tramadol 50 mg tablet 50 mg PO BID PRN (Reason: pain) Qty: 6 0RF polyethylene glycol 3350 [Miralax] 17 gram/dose powder 17 g PO BID PRN (Reason: laxative effect) Qty: 510 0RF mineral oil [Fleet Mineral Oil] Enema 118 ml ME DAILY PRN (Reason: constipation) Qty: 133 1RF Rx Instructions: discard any unused portion No Action metoprolol succinate 100 mg tablet extended release 24 hr 100 mg PO DAILY lisinopril 40 mg tablet 40 mg PO DAILY nifedipine 60 mg tablet extended release 60 mg PO DAILY Interventions: ED Discharge Assessment Last Done: 11/03/24 22:06 Discharge Date/Time: 11/03/24 22:06 Print Language: Danish
[2024-11-03 19:29] LABS: MANUAL DIFF FLAG NO
[2024-11-03 19:34] LABS: Basophils Absolute Auto 0.1 X10*3/uL (0.0-0.2); Basophils Percent Auto 0.4 % (0-2); Eosinophils Absolute Auto 0.4 X10*3/uL (0.0-0.4); Eosinophils Percent Auto 2.6 % (0-4); Hematocrit 43.8 % (42.0-52.0); Hemoglobin 15.3 g/dl (14.0-18.0); Imm Gran Abs Auto 0.06 X10*3/uL (0.00-0.03); Imm Gran Pct Auto 0.4 % (0.0-0.4); Lymphocytes Absolute Auto 4.5 X10*3/uL (1.2-4.9); Lymphocytes Percent Auto 30.9 % (20-40); Mean Corpuscular HGB Conc 34.9 g/dl (31.0-36.0); Mean Corpuscular Hemoglobin 29.8 pg (27.0-33.0); Mean Corpuscular Volume 85.4 fL (80.0-98.0); Mean Platelet Volume 8.1 fL (9.4-12.4); Monocytes Absolute Auto 0.6 X10*3/uL (0.1-1.2); Monocytes Percent Auto 4.4 % (2-11); Neutrophils Absolute Auto 8.9 x10*3/uL (2.0-8.3); Neutrophils Percent Auto 61.3 % (45-73); Platelet Count 329 X10*3/uL (160-400); Red Blood Count 5.13 X10*6/uL (4.60-5.80); Red Cell Distribution Width 13.4 % (11.0-16.0); White Blood Count 14.5 X10*3/uL (4.8-10.8)
[2024-11-03 19:35] LABS: Appearance Urine Clear; Color Urine Yellow; Glucose Urine UA Negative (Negative); Leukocyte Esterase Urine Negative (Negative); Nitrite Urine Negative (Negative); PH 5.5 (5.0-9.0); Specific Gravity - Urine <= 1.005 (1.005-1.025); Urine Blood Negative (Negative); Urine Ketones Negative (Negative); Urine Protein Negative (Neg-Trace)
[2024-11-03 19:46] LABS: Prothrombin Time 11.9 SEC (10.9-12.4)
[2024-11-03 19:48] LABS: Alanine Aminotransferase 41 U/L (0-40); Albumin Level 4.3 g/dL (3.5-5.0); Alkaline Phosphatase 80 U/L (39-117); Anion Gap 13 (12-20); Aspartate Amino Transferase 46 U/L (5-37); Bilirubin Total 0.9 mg/dL (0.0-1.0); Blood Urea Nitrogen 13 mg/dL (9-16); Calcium 8.8 mg/dL (8.4-10.2); Carbon Dioxide 21 mmol/L (22-29); Chloride 109 mmol/L (96-108); Creatinine Clr Calc Pharmacy 151.3; Estimated Glomerular Filt Rate > 60; Glucose Random 107 mg/dL (60-115); Partial Thromboplastin Time 33.8 SEC (26.0-36.8); Potassium 3.4 mmol/L (3.3-5.1); Sodium 140 mmol/L (135-145); Total Protein 7.3 g/dL (6.5-8.0)
--- OUTSIDE RECORDS SUMMARY | 2024-11-03 21:54 | XMS_ITS | Encounter Summary ---
Author Organization [employer] Address [address] [place] [address] Care Team Providers Care Geographic Area Intelligence Officer Name Role Phone Henrique Isaacsupe RESOURCING CONSULTANT Primary Care Provider [phone] Reason for Visit * Reason Onset Date Comments Chart Prep 10/30/2024 Encounter Details Date Type Department Care Team ([facility] Contact Info) Description 10/30/[address] [facility] MEDICINE [address] [place] [address] Marine Matamoros [place] Chart Prep Social History [...] Description 11/06/2024 9:30 AM EST Office Visit [facility] MEDICINE [address] [place] [address] Leana Isaacs FNP [address] [place] [address] documented as of this encounter Visit Diagnoses Not on filedocumented in this encounter Additional Health Concerns Assessment Noted Time PHQ-9 Depression Total Score: 13 025 2:01 PM EST documented as of this encounter Care Teams Geographic Area Intelligence Officer Relationship Specialty Start Date End Date Leana Isaacs FNP [address] [place] [address] PCP - General Family Medicine 08/21/24 documented as of this encounter
--- OUTSIDE RECORDS SUMMARY | 2024-11-03 21:54 | XMS_ITS | Encounter Summary ---
Author Organization [employer] Address [address] [facility] [address] [address] [facility] [address] [place] [address] Care Team Providers Care Glass Pulverizer Equipment Operator Name Role Phone Leana Isaacs CLINICAL PROGRAM DIRECTOR Primary Care Provider Encounter Details Date Type Department Care Team [...] Description 11/06/2024 9:30 AM EST Office Visit [facility] [address] [place], [place] [phone] Leana Isaacs FNP [address] [place], [place] [phone] documented as of this encounter Procedures Procedure Name Priority Date/Time Associated Diagnosis Comments CBC WITH AUTO DIFFERENTIAL Routine 10/13/2024 8:34 AM EST documented in this encounter Results * (ABNORMAL) CBC auto differential (10/13/2024 8:34 AM EST) White Blood Count 16.5(H) 4.8 - 10.8 X10*3/uL [facility] Red Blood Count 5.68 4.60 - 5.80 X10*6/uL [facility] Hemoglobin 17.0 14.0 - 18.0 g/dl [facility] Hematocrit 48.6 42.0 - 52.0 % [facility] Mean Corpuscular Volume 85.6 80.0 - 98.0 fL [facility] Mean Corpuscular Hemoglobin 29.9 27.0 - 33.0 pg [facility] Mean Corpuscular HGB Conc 35.0 31.0 - 36.0 g/dl [facility] Red Cell Distribution Width 13.1 11.0 - 16.0 % [facility] Platelet Count 317 160 - 400 X10*3/uL [facility] Mean Platelet Volume 8.4(L) 9.4 - 12.4 fL [facility] Neutrophils Percent Auto 75.1(H) 45 - 73 % [facility] Imm Gran Pct Auto 0.4 0.0 - 0.4 % [facility] Lymphocytes Percent Auto 16.9(L) 20 - 40 % [facility] Monocytes Percent Auto 5.0 2 - 11 % [facility] Eosinophils Percent Auto 2.1 0 - 4 % [facility] Basophils Percent Auto 0.5 0 - 2 % [facility] NRBC Pct Auto 0.0 0.0 - 0.2 /100WBC [facility] Neutrophils Absolute Auto 12.4(H) 2.0 - 8.3 x10*3/uL [facility] Imm Gran Abs Auto 0.07(H) 0.00 - 0.03 X10*3/uL [facility] Lymphocytes Absolute Auto 2.8 1.2 - 4.9 X10*3/uL [facility] Monocytes Absolute Auto 0.8 0.1 - 1.2 X10*3/uL [facility] Eosinophils Absolute Auto 0.3 0.0 - 0.4 X10*3/uL [facility] Basophils Absolute Auto 0.1 0.0 - 0.2 X10*3/uL [facility] NRBC Abs Auto 0.000 0.0 - 0.012 X10*3/uL [facility] 10/13/2024 8:34 AM EST 10/13/2024 8:37 AM EST us Generic External Data Provider LAB BLOOD ORDERAB LES Final Result [facility] [address] [place] [address] [phone] documented in this encounter Visit Diagnoses Not on filedocumented in this encounter Additional Health Concerns Assessment Noted Time PHQ-9 Depression Total Score: 13 025 2:01 PM EST documented as of this encounter Care Teams Glass Pulverizer Equipment Operator Relationship Specialty Start Date End Date Leana Isaacs FNP [address] [place] [phone] PCP - General Family Medicine 08/21/24 documented as of this encounter
--- OUTSIDE RECORDS SUMMARY | 2024-11-03 21:54 | XMS_ITS | Encounter Summary ---
Author Organization [employer] Address [address] [place] [address] Care Team Providers Care Political Reporter Name Role Phone Henrique Isaacsupe ATHLETIC GEAR CUSTODIAN Primary Care Provider [phone] Reason for Visit * Reason Onset Date Comments Chart Prep 10/23/2024 Encounter Details Date Type Department Care Team ([facility] Contact Info) Description 10/23/2024 Telephone [facility] [address] [place] [address] Marine Matamoros [place] Chart Prep Social History [...] 9:30 AM EST Office Visit [facility] [address] [place] [address] Leana Isaacs FNP [address] [place] [address] documented as of this encounter Visit Diagnoses Not on filedocumented in this encounter Additional Health Concerns Assessment Noted Time PHQ-9 Depression Total Score: 13 025 2:01 PM EST documented as of this encounter Care Teams Political Reporter Relationship Specialty Start Date End Date Leana Isaacs FNP [address] [place] [address] PCP - General Family Medicine 08/21/24 documented as of this encounter
--- OUTSIDE RECORDS SUMMARY | 2024-11-03 21:54 | XMS_ITS | Encounter Summary ---
Author Organization [employer] Address [address] [facility] [address] [place] [address] Care Team Providers Care School Childcare Attendant Name Role Phone Henrique Isaacsupe AUDITING SPECIALIST Primary Care Provider [phone] Encounter Details Date Type Department Care Team ([facility] Contact Info) Description 10/30/2024 Telephone [facility] [address] [place] [address] Margarita Catalan RN Social History Tobacco Use [...] 9:30 AM EST Office Visit [facility] [address] [place], [place] [phone] Leana Isaacs FNP [address] [place] [address] documented as of this encounter Visit Diagnoses Not on filedocumented in this encounter Additional Health Concerns Assessment Noted Time PHQ-9 Depression Total Score: 13 025 2:01 PM EST documented as of this encounter Care Teams School Childcare Attendant Relationship Specialty Start Date End Date Leana Isaacs FNP [address] [place] [address] PCP - General Family Medicine 08/21/24 documented as of this encounter
--- OUTSIDE RECORDS SUMMARY | 2024-11-03 21:54 | XMS_ITS | Encounter Summary ---
Author Organization [employer] Address [address] [facility] [address] [place] [address] Care Team Providers Care Calculator Operator Name Role Phone Leana Isaacs Primary Care Provider [phone] Reason for Visit * Reason Onset Date Comments Prior Authorization 10/24/2024 [employer] Encounter Details Date Type Department Care Team ([facility] Contact Info) Description 10/24/2024 Telephone [facility] [address] [place] [address] Leana Isaacs FNP [address] [place] [address] Prior Authorization ([employer]) Social History Tobacco Use [...] PA for [employer] signed and faxed to [employer]. Confirmation received and sent to [facility]. If patient calls to check status on above, please advise them to contact Pharmacy . * Telephone Encounter - Marianna Finley - 10/24/2024 3:14 PM EST PA for [employer] from [facility] placed on PCP desk for signature. * [...] Description 11/06/2024 9:30 AM EST Office Visit [facility] [address] [place] [address] Leana Isaacs FNP [address] [place] [address] documented as of this encounter Visit Diagnoses Not on filedocumented in this encounter Additional Health Concerns Assessment Noted Time PHQ-9 Depression Total Score: 13 025 2:01 PM EST documented as of this encounter Care Teams Calculator Operator Relationship Specialty Start Date End Date Leana Isaacs FNP [address] [place] [address] PCP - General Family Medicine 08/21/24 documented as of this encounter
--- OUTSIDE RECORDS SUMMARY | 2024-11-03 21:54 | XMS_ITS | Encounter Summary ---
Author Organization [employer] Address [address] [facility] 7t [place] [address] Care Team Providers Care Harness Cutter Name Role Phone Leana Isaacs Primary Care Provider [phone] Reason for Visit * Reason Onset Date Comments Appointment Request 09/25/2024 Encounter Details Date Type Department Care Team ([facility] Contact Info) Description 09/25/2024 Telephone [facility] [address] [place] [address] Leana Isaacs FNP [address] [place] [address] Appointment Request Social History Tobacco Use Types [...] requesting schedule f/u b/p appt from a [facility] recent visit. [phone] documented in this encounter Plan of Treatment Upcoming Encounters Date Type Department Care Team (Late st Contact Info) Description 11/06/2024 9:30 AM EST Office Visit [facility] [address] [place] [address] Leana Isaacs FNP [address] [place] [address] documented as of this encounter Visit Diagnoses Not on filedocumented in this encounter Additional Health Concerns Assessment Noted Time PHQ-9 Depression Total Score: 13 025 2:01 PM EST documented as of this encounter Care Teams Harness Cutter Relationship Specialty Start Date End Date Leana Isaacs FNP [address] [place] [address] PCP - General Family Medicine 08/21/24 documented as of this encounter
--- OUTSIDE RECORDS SUMMARY | 2024-11-03 21:54 | XMS_ITS | Encounter Summary ---
Author Organization [employer] Address [address] [facility] [address] [place] [address] Care Team Providers Care President [place] Name Role Phone Leana Isaacs Primary Care Provider [phone] Encounter Details Date Type Department Care Team ([facility] Contact Info) Description 10/29/2024 Orders Only [facility] [address] [place] [address] Leana sIaacs FNP [address] [place] [address] Anxiety and depression Social History Tobacco Use [...] AM EST Office Visit [facility] [address] [place] [address] Leana Isaacs FNP [address] [place] [address] documented as of this encounter Visit Diagnoses Diagnosis Anxiety and depression documented in this encounter Additional Health Concerns Assessment Noted Time PHQ-9 Depression Total Score: 13 025 2:01 PM EST documented as of this encounter Care Teams President [place] Relationship Specialty Start Date End Date Leana Isaacs FNP [address] [place] [address] PCP - General Family Medicine 08/21/24 documented as of this encounter
--- OUTSIDE RECORDS SUMMARY | 2024-11-03 21:54 | XMS_ITS | Encounter Summary ---
Author Organization [employer] Address [address] [facility] [address] [place] [address] Care Team Providers Care Telecommunications Network Engineer Name Role Phone Henrique Isaacsupe MRI ASSISTANT Primary Care Provider [phone] Reason for Visit * Reason Onset Date Comments Chart Prep 10/15/2024 Encounter Details Date Type Department Care Team ([facility] Contact Info) Description 10/15/[address] [facility] [address] [place] [address] Marine Matamoros [place] Chart Prep Social History [...] 11/06/2024 9:30 AM EST Office Visit [facility] [address] [place] [address] Leana Isaacs FNP [address] [place] [address] documented as of this encounter Visit Diagnoses Not on filedocumented in this encounter Additional Health Concerns Assessment Noted Time PHQ-9 Depression Total Score: 13 025 2:01 PM EST documented as of this encounter Care Teams Telecommunications Network Engineer Relationship Specialty Start Date End Date Leana Isaacs FNP [address] [place] [address] PCP - General Family Medicine 08/21/24 documented as of this encounter
--- OUTSIDE RECORDS SUMMARY | 2024-11-03 21:54 | XMS_ITS | Encounter Summary ---
Author Organization [employer] Address [address] [facility] [address] [place] [address] Care Team Providers Care President And Chief Commercial Officer Name Role Phone Leana Isaacs Primary Care Provider Reason for Visit * Reason Comments Med Refill Encounter Details Date Type Department Care Team ([facility] Contact Info) Description 10/18/2024 Refill [facility] [address] [place] [address] Leana Isaacs FNP [address] [place] [address] Anxiety and depression Social History Tobacco Use [...] Description 11/06/2024 9:30 AM EST Office Visit [facility] [address] [place] [address] Leana Isaacs FNP [address] [place] [address] documented as of this encounter Visit Diagnoses Diagnosis Anxiety and depression documented in this encounter Additional Health Concerns Assessment Noted Time PHQ-9 Depression Total Score: 13 025 2:01 PM EST documented as of this encounter Care Teams President And Chief Commercial Officer Relationship Specialty Start Date End Date Leana Isaacs FNP [address] [place] [address] PCP - General Family Medicine 08/21/24 documented as of this encounter
--- OUTSIDE RECORDS SUMMARY | 2024-11-03 21:56 | XMS_ITS | Encounter Summary ---
Author Organization [employer] Address [address] [facility] 7[address] [place] [address] Care Team Providers Care Senior Behavioral Scientist Name Role Phone Leana Isaacs ADMISSION NURSE Primary Care Provider [phone] Reason for Visit * Reason Comments Med Refill Encounter Details Date Type Department Care Team ([facility] Contact Info) Description 11/02/2024 Refill [facility] [address] [place], [place] [phone] Mahsa Wahl MD [address] [place], [place] [phone] Primary hypertension Social History Tobacco Use Types Packs/Day Years [...] Description 11/06/2024 9:30 AM EST Office Visit [facility] [address] [place] [address] Leana Isaacs FNP [address] [place] [address] documented as of this encounter Visit Diagnoses Diagnosis Primary hypertension Unspecified essential hypertension documented in this encounter Additional Health Concerns Assessment Noted Time PHQ-9 Depression Total Score: 13 025 2:01 PM EST documented as of this encounter Care Teams Senior Behavioral Scientist Relationship Specialty Start Date End Date Leana Isaacs FNP [address] [place] [address] PCP - General Family Medicine 08/21/24 documented as of this encounter
--- OUTSIDE RECORDS SUMMARY | 2024-11-03 21:56 | XMS_ITS | Clinical Summary ---
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 Referral to athletic gear custodian Omeprazole prescribed Avoid provocative foods: citrus, alcohol, [...] organization. Date Type Department Care Team Description 11/03/2024 Orders Only GENERIC EXTERNAL DATA DEPARTMENT Provider, Generic External Data 11/02/2024 Refill [facility] [address] [place] [address] Mahsa Wahl MD Primary hypertension 10/30/2024 Telephone [facility] [address] [place] [address] Marine Matamoros MA Chart Prep 10/30/2024 Telephone [facility] [address] [place] [address] Margarita Catalan, NELIA 10/29/2024 Orders Only [facility] [place] [address] Leana Isaacs FNP Anxiety and depression 10/24/2024 Telephone [facility] [place] [address] Leana Isaacs FNP Prior Authorization ([employer]ep[employer]) 10/23/2024 [address]phone [address] [place] [address] Marine Matamoros [place] Chart Prep 10/18/2024 10:00 AM EST Office Visit [facility] [place] [address] Leana Isaacs FNP Resistant hypertension (Primary Dx); Erectile dysfunction, unspecified erectile dysfunction type; Tobacco use disorder; Class 2 obesity with body mass index (BMI) of 39.0 to 39.9 in adult, unspecified obesity type, unspecified whether serious comorbidity present; Anxiety and depression 10/18/2024 Refill [facility] [place] [address] Leana Isaacs FNP Anxiety and depression 10/15/2024 [address]phone [address] [place] [address] Marine Matamoros [place] Chart Prep 10/13/2024 Orders Only GENERIC EXTERNAL DATA DEPARTMENT Provider, Generic External Data 09/25/2024 Telephone [facility] [place] [address] Leana Isaacs FNP Appointment Request 09/24/2024 2:20 PM EST Office Visit [facility] [place] [address] Malena Balbuena MD Exertional chest pain (Primary Dx); Acute electrocardiogram changes 09/24/2024 Orders Only GENERIC EXTERNAL DATA DEPARTMENT Provider, Generic External Data 09/24/2024 Telephone [facility] [place] [address] Leana Isaacs FNP Nurse Triage 09/24/2024 [address]phone [address] [place] [address] Leana Isaacs FNP FYI 09/20/2024 1:00 PM EST Office Visit [address] [place] [address] Leana Isaacs FNP Well adult on routine [...] mother; Other male erectile dysfunction 09/17/[address] [address] Marine Matamoros [place] Chart Prep 09/11/2024 Patient Outreach [address] [address] Leana Isaacs FNP Pre-visit Planning (SDOH screening was completed on 07/22/2024) 08/27/2024 11:30 AM EST Clinical Support [address] [address] Telma Hannah, NELIA Essential hypertension 08/16/[address] [address] Leana Isaacs FNP Med Refill 08/13/2024 11:00 AM EST Clinical Support [address] [address] Libby Roberts, RN Essential hypertension 08/13/2024 Travel from Last 3 [...] 9:30 AM EST Office Visit [facility] [address] [place], [place] [phone] Leana Isaacs FNP [address] [place], [place] [phone] Health Maintenance Due Date Last Done Comments [...] Procedure Name Priority Date/Time Associated Diagnosis Comments CT ABDOMEN PELVIS WO CONTRAST Routine 11/03/2024 9:22 PM EST APTT Routine 11/03/2024 7:24 PM EST PROTHROMBIN TIME-INR Routine 11/03/2024 7:24 PM EST URINALYSIS WITH REFLEX MICROSCOPIC Routine 11/03/2024 7:24 PM EST COMPREHENSIVE METABOLIC PANEL Routine 11/03/2024 7:24 PM EST CBC WITH AUTO DIFFERENTIAL Routine 11/03/2024 7:24 PM EST LH Routine 10/23/2024 8:58 AM EST Erectile [...] 2:06 PM EST HEPATIC FUNCTION PANEL Routine 2:06 PM EST PROTHROMBIN TIME-INR Routine 09/24/2024 [...] Recently Relevant to Health Maintenance Results * CT Abdomen Pelvis w/o Contrast (11/03/2024 9:22 PM EST) Anatomical Region Laterality Modality Body, Pelvis, Abdomen Computed T omography 11/03/2024 9:22 PM EST Narrative 11/03/2024 9:23 PM EST ? [facility] ?[address] ?[place] [address] ? CT Scan Report ? Signed ? Patient: Aparicio,Jose W ?MR#: [id number] ?? 9 ? : 1990 ?Acct:[id number] ? Age/Sex: 34 / M ?ADM Date: 03/02/25 ? Loc: HO.ED ? Attending Dr: ? Ordering Physician: Mau Figueroa ?? Date of Service: 11/03/24 ?? Procedure(s): CT abdomen pelvis wo IV con ?? Accession Number(s): [id number] ? cc: Mau Figueroa; Leana Isaacs REPACK ROOM WORKER ? Report Number: ?? [id number]: Total DLP = ??878.00 mGy-cm ? CLINICAL HISTORY: LLQ pain ? CT ABDOMEN AND PELVIS WITHOUT CONTRAST ? COMPARISON: 10/13/2024. ? FINDINGS: Colonic diverticula are noted. There is stranding/inflammation ?? and trace fluid adjacent to a few sigmoid diverticula, seen on axial ?? images 651-666 of series 4. This is compatible with acute diverticulitis. ?? No abscess or definite free air. Portions of the colon are significantly ?? underdistended which precludes accurate assessment for wall thickening. ?? Appendix is visualized, and there is no evidence of acute appendicitis. No ?? evidence of a bowel obstruction. ? There is minimal atelectatic change in the lower lungs. Although ?? underdistended, the distal esophagus appears thick-walled. This is similar ?? to the prior study. Esophagitis is questioned. This can be correlated with ?? patient history/symptoms and laboratory values. Stomach is underdistended ?? which limits assessment. What is thought to represent some CT artifact is ?? noted in association with the liver. Fatty infiltration of the liver is ?? again noted. No visible gallstone. No pericholecystic inflammation. Common ?? bile duct is not dilated. Pancreas is unremarkable. Spleen is ?? unremarkable. Thickening/nodularity of the adrenal glands is again noted, ?? with an approximately 1.8 cm left adrenal adenoma noted on axial image ?? 277. Both kidneys are unremarkable. No hydronephrosis or obstructing ?? stone. Urinary bladder is underdistended which limits assessment. No ?? evidence of an abdominal aortic aneurysm. Subcentimeter nonenlarged lymph ?? nodes are noted in the mesentery. No evidence of a bowel containing ?? hernia. Tiny fat containing umbilical hernias are again noted. Again noted ?? are sclerotic changes and erosive changes in association with the ?? bilateral sacroiliac joints. Degenerative changes are noted in the lumbar ?? spine and visualized thoracic spine. Mild multilevel remote compression ?? deformities are noted involving the lower thoracic/upper lumbar spine. ? IMPRESSION: ?? 1. Findings compatible with acute diverticulitis involving the sigmoid ?? colon. No abscess or free air. No evidence of a bowel obstruction. ?? 2. The distal esophagus is underdistended but appears thick-walled. This ?? is similar to the prior study. Esophagitis is questioned. This can be ?? correlated with patient history/symptoms and laboratory values. ?? 3. Bilateral sacroiliac joint sclerotic changes and erosive changes are ?? again noted. This is also noted previously and can be correlated with ?? patient history. ?? 4. Additional findings are detailed above. ? This document has been electronically signed by: Boby Garcia M.D. on ?? 11/03/2024 21:22:25 ? Dictated By: ?Boby Garcia MD ? Signed By: ?<Electronically signed by Boby Garcia MD in OV> ? 11/03/242122 ? DD/ 21 ? TD/TT: 11/03/242121 ? Theatrical Performer: ? Procedure Note Gwendolyn Najera - 11/03/[address] [place] [address] [address] Scan Report Signed Patient: Jose Aparicio WMR#: [id number] 9 : 1990Acct:[id number] Age/Sex: 34 / MADM Date: 11/03/24 Loc: .ED Attending Dr: Ordering Physician: Mau Figueroa Date of Service: 11/03/24 Procedure(s): CT abdomen pelvis wo IV con Accession Number(s): [id number] cc: Mau Figueroa; Leana Isaacs [facility] Report Number: [id number]: Total DLP = 878.00 mGy-cm CLINICAL HISTORY: LLQ pain CT ABDOMEN AND PELVIS WITHOUT CONTRAST COMPARISON: 10/13/2024. FINDINGS: Colonic diverticula are noted. There is stranding/inflammation and trace fluid adjacent to a few sigmoid diverticula, seen on axial images [id number] of series 4. This is compatible with acute diverticulitis. No abscess or definite free air. Portions of the colon are significantly underdistended which precludes accurate assessment for wall thickening. Appendix is visualized, and there is no evidence of acute appendicitis. No evidence of a bowel obstruction. There is minimal atelectatic change in the lower lungs. Although underdistended, the distal esophagus appears thick-walled. This is similar to the prior study. Esophagitis is questioned. This can be correlated with patient history/symptoms and laboratory values. Stomach is underdistended which limits assessment. What is thought to represent some CT artifact is noted in association with the liver. Fatty infiltration of the liver is again noted. No visible gallstone. No pericholecystic inflammation. Common bile duct is not dilated. Pancreas is unremarkable. Spleen is unremarkable. Thickening/nodularity of the adrenal glands is again noted, with an approximately 1.8 cm left adrenal adenoma noted on axial image 277. Both kidneys are unremarkable. No hydronephrosis or obstructing stone. Urinary bladder is underdistended which limits assessment. No evidence of an abdominal aortic aneurysm. Subcentimeter nonenlarged lymph nodes are noted in the mesentery. No evidence of a bowel containing hernia. Tiny fat containing umbilical hernias are again noted. Again noted are sclerotic changes and erosive changes in association with the bilateral sacroiliac joints. Degenerative changes are noted in the lumbar spine and visualized thoracic spine. Mild multilevel remote compression deformities are noted involving the lower thoracic/upper lumbar spine. IMPRESSION: 1. Findings compatible with acute diverticulitis involving the sigmoid colon. No abscess or free air. No evidence of a bowel obstruction. 2. The distal esophagus is underdistended but appears thick-walled. This is similar to the prior study. Esophagitis is questioned. This can be correlated with patient history/symptoms and laboratory values. 3. Bilateral sacroiliac joint sclerotic changes and erosive changes are again noted. This is also noted previously and can be correlated with patient history. 4. Additional findings are detailed above. This document has been electronically signed by: Boby Garcia M.D. on 11/03/2024 21:22:25 Dictated By: Boby Garcia MD Signed By: <Electronically signed by Boby Garcia MD in OV> 11/03/242122 DD/ 21 TD/TT: 11/03/242121 Theatrical Performer: [facility] External Provider IMG CT PROCEDURES Final Result * (ABNORMAL) CBC auto differential (11/03/2024 7:24 PM EST) Only the most recent of4 resultswithin the time period is included. White Blood Count 14.5(H) 4.8 - 10.8 X10*3/uL [facility] Red Blood Count 5.13 4.60 - 5.80 X10*6/uL [facility] Hemoglobin 15.3 14.0 - 18.0 g/dl [facility] Hematocrit 43.8 42.0 - 52.0 % [facility] Mean Corpuscular Volume 85.4 80.0 - 98.0 fL [facility] Mean Corpuscular Hemoglobin 29.8 27.0 - 33.0 pg [facility] Mean Corpuscular HGB Conc 34.9 31.0 - 36.0 g/dl [facility] Red Cell Distribution Width 13.4 11.0 - 16.0 % [facility] Platelet Count 329 160 - 400 X10*3/uL [facility] Mean Platelet Volume 8.1(L) 9.4 - 12.4 fL [facility] Neutrophils Percent Auto 61.3 45 - 73 % [facility] Imm Gran Pct Auto 0.4 0.0 - 0.4 % [facility] Lymphocytes Percent Auto 30.9 20 - 40 % [facility] Monocytes Percent Auto 4.4 2 - 11 % [facility] Eosinophils Percent Auto 2.6 0 - 4 % [facility] Basophils Percent Auto 0.4 0 - 2 % [facility] NRBC Pct Auto 0.0 0.0 - 0.2 /100WBC [facility] Neutrophils Absolute Auto 8.9(H) 2.0 - 8.3 x10*3/uL [facility] Imm Gran Abs Auto 0.06(H) 0.00 - 0.03 X10*3/uL [facility] Lymphocytes Absolute Auto 4.5 1.2 - 4.9 X10*3/uL [facility] Monocytes Absolute Auto 0.6 0.1 - 1.2 X10*3/uL [facility] Eosinophils Absolute Auto 0.4 0.0 - 0.4 X10*3/uL [facility] Basophils Absolute Auto 0.1 0.0 - 0.2 X10*3/uL [facility] NRBC Abs Auto 0.000 0.0 - 0.012 X10*3/uL [facility] 11/03/2024 7:24 PM EST 11/03/2024 7:28 PM EST Generic External Data Provider LAB BLOOD ORDERAB LES Final Result Performing Organization Address City/[facility]/ZIP Co de Phone Number [facility] [address] [place] [phone] * Urinalysis w/reflex microscopic (11/03/2024 7:24 PM EST) Color Urine Yellow [facility] Appearance Urine Clear [facility] PH 5.5 5.0 - 9.0 [facility] Glucose Urine UA Negative Negative mg/dL [facility] Urine Blood Negative Negative [facility] Specific [place] - Urine <=1.005 1.005 - 1.025 [facility] Urine Protein Negative Neg-Trace mg/dL [facility] Urine Ketones Negative Negative mg/dL [facility] Nitrite Urine Negative Negative [facility] Leukocyte Esterase Urine Negative Negative [facility] 11/03/2024 7:24 PM EST 11/03/2024 7:28 PM EST Narrative [facility] - 11/03/2024 7:48 PM EST [id number], Clean Catch Generic External Data Provider LAB URINE ORDERAB LES Final Result Performing Organization Address [facility]/ZIP Co de Phone Number [facility] [address] [place] [phone] * Partial Thromboplastin Time, Activated (APTT) (11/03/2024 7:24 PM EST) Partial Thromboplastin Time 33.8 26.0 - 36.8 SEC [facility] Comment:For information rega rding the monitoring of direct thrombininhibitors, please refer to Pharmacy. 11/03/2024 7:24 PM EST 11/03/2024 7:28 PM EST Generic External Data Provider LAB BLOOD ORDERAB LES Final Result Performing Organization Address [facility]/ZIP Co de Phone Number [facility] [address] [place] [phone] * Prothrombin Time-INR (11/03/2024 7:24 PM EST) Only the most recent of2 resultswithin the time period is included. Prothrombin Time 11.9 10.9 - 12.4 SEC [facility] INTERNATIONAL NORM RATIO 1.0 0.9 - 1.1 [facility] Comment:INTERNATIONAL NORMAL IZED RATIO (INR) REFERENCE RANGES Reference RangeFor patients not on anticoagulant therapy: 0.9 - 1.1INR ranges for oral anticoagulanttherapy:For prevention and treatment of venous thrombosis and pulmonary embolism: 2.0 - 3.0For acute myocardial infarction with aspirin therapy: 2.0 - 3.0For acute myocardial infarction without aspirin therapy: 3.0 - 4.0For patients with mechanical prosthetic heart valves: 2.5 - 3.5 11/03/2024 7:24 PM EST 11/03/2024 7:28 PM EST us Generic External Data Provider LAB BLOOD ORDERAB LES Final Result Performing Organization Address [facility]/ZIP Co de Phone Number [facility] [address] [place] [phone] * (ABNORMAL) Comprehensive Metabolic Panel (11/03/2024 7:24 PM EST) Sodium 140 135 - 145 mmol/L [facility] Potassium 3.4 3.3 - 5.1 mmol/L [facility] Chloride 109(H) 96 - 108 mmol/L [facility] Carbon Dioxide 21(L) 22 - 29 mmol/L [facility] Anion Gap 13 12 - 20 [facility] Urea Nitrogen (BUN) 13 9 - 16 mg/dL [facility] Creatinine, Serum 0.90 0.5 - 1.4 mg/dL [facility] Creatinine Clr Calc Pharmacy 151.3 [facility] Comment:eGFR (calculated fro m the MDRD study equation) and eCrCl(calculated from the Cockcroft-Gault equation) are based ondifferent parameters and may not yield comparable results.If eCrCl result is absurd, please check patient'sheight/weight. Estimated Glomerular Filt Rate >60 [facility] Comment:Chronic Kidney Disea se: Estimated GFR < 60 mL/min/1.26d6Hssnhu Kidney Disease: Estimated GFR < 15 mL/min/1.73m2 Glucose 107 60 - 115 mg/dL [facility] Calcium 8.8 8.4 - 10.2 mg/dL [facility] Bilirubin, Total 0.9 0.0 - 1.0 mg/dL [facility] Aspartate Amino Transferase 46(H) 5 - 37 U/L [facility] Alanine Aminotransferase 41(H) 0 - 40 U/L [facility] Total Protein 7.3 6.5 - 8.0 g/dL [facility] Albumin Level 4.3 3.5 - 5.0 g/dL [facility] Alkaline Phosphatase 80 39 - 117 U/L [facility] 11/03/2024 7:24 PM EST 11/03/2024 7:28 PM EST us Generic External Data Provider LAB BLOOD ORDERAB LES Final Result [facility] [address] [place], [place] [phone] * Prolactin, Dilution Study (10/23/2024 8:58 AM EST) Prolactin, Undiluted 4.0 2.0 - 18.0 ng/mL [facility] Comment:Verified by repeat a nalysis. Prolactin, Diluted SEE NOTE 2.0 - 18.0 ng/mL [facility] Comment:Result confirmed by 1:100 dilution. No high dosehook effect detected.Prolactin dilution studies are done to determine ifthere is a high-dose hook effect (i.e. a non-linearassay response due to a very high concentration ofProlactin). This is reported to occur at Prolactinconcentrations at or above 30,000 ng/mL.This test is not recommended for identifyingmacroprolactin. [employer] [facility], Prolactin, Total and Monomeric is therecommended test (Order code [id number]).THIS TEST WAS PERFORMED AT:[employer] [address] [phone] ARIZMENDI MD Blood Venous blood specimen / Unknown 10/23/2024 8:58 AM EST 10/23/2024 11:10 AM EST [facility] LAB BLOOD ORDERABLES Final Res ult Performing Organization Address City/[facility]/ZIP Co de Phone Number [facility] [address] [place] [phone] * Sex Hormone Binding Globulin (SHBG) (10/23/2024 8:58 AM EST) Pathologist [facility] Sex Hormone Binding Globulin 15 10 - 50 nmol/L [facility] Comment:THIS TEST WAS PERFOR MED AT:[employer] [address] [phone] ARIZMENDI MD Blood Venous blood specimen / Unknown 10/23/2024 8:58 AM EST 10/23/2024 11:10 AM EST Leanaeber Isaacs [facility] LAB BLOOD ORDERABLES Final Res ult Performing Organization Address City/[facility]/ZIP Co de Phone Number [facility] [address] [place] [phone] * Testosterone, Free (Dialysis) And Total, MS (10/23/2024 8:58 AM EST) Testosterone, Total 285 250 - 1100 ng/dL [facility] Comment:For additional infor mation, please refer tohttp://education.Bacterioscan/faq/UxzgoYupndcsssqocPZJOGIBIU768(This link is being provided for informational/educational purposes only.)This test was developed and its analytical performancecharacteristics have been determined by [facility] [place]. It hasnot been cleared or approved by the U.S. Food and DrugAdministration. This assay has been validated pursuantto the CLIA regulations and is used for clinicalpurposes. Testosterone, Free 75.2 35.0 - 155.0 pg/mL [facility] Comment:This test was develo ped and its analytical performancecharacteristics have been determined by [facility] [place] [place]. It hasnot been cleared or approved by the U.S. Food and DrugAdministration. This assay has been validated pursuantto the CLIA regulations and is used for clinicalpurposes.THIS TEST WAS PERFORMED AT:[employer] [id number] [place] [address]WANRMSKNANCY RAMIREZ MD,PHD Blood Venous blood specimen / Unknown 10/23/2024 8:58 AM EST 10/23/2024 11:10 AM EST us Leana Isaacs [facility] LAB BLOOD ORDERABLES Final Res ult [facility] [address] [place] [phone] * LH (10/23/2024 8:58 AM EST) Lutenizing Hormone 2.7 1.5 - 9.3 mIU/mL [facility] Comment:THIS TEST WAS PERFOR MED AT:[employer] [address] [phone] ARIZMENDI MD Blood Venous blood specimen / Unknown 10/23/2024 8:58 AM EST 10/23/2024 11:10 AM EST [facility] LAB BLOOD ORDERABLES Final Res ult Performing Organization Address [facility] Co de Phone Number [facility] [address] [place] [phone] * FSH (10/23/2024 8:58 AM EST) Follicle Stimulating Hormone 2.7 1.4 - 12.8 mIU/mL [facility] Comment:THIS TEST WAS PERFOR MED AT:[employer] [place] [id number] ARIZMENDI MD Blood Venous blood specimen / Unknown 10/23/2024 8:58 AM EST 10/23/2024 11:10 AM EST [facility] LAB BLOOD ORDERABLES Final Res ult Performing Organization Address [facility] de Phone Number [facility] [address] [place] [phone] * High Sensitivity Troponin I (09/24/2024 3:59 PM EST) Only the most recent of2 resultswithin the time period is included. TROPONIN I HIGH SENSITIVITY <2.7 <3.5 - 35.0 ng/L [facility] Comment:The Fuller high sens itivity Troponin-I results should beused in conjunction with other diagnostic information suchas ECG, clinical observations and information, and patientsymptoms to aid in the diagnosis of AR. 09/24/2024 3:59 PM EST 09/24/2024 4:02 PM EST Generic External Data Provider LAB BLOOD ORDERAB LES Final Result Performing Organization Address [facility] Co de Phone Number [facility] [address] [place] [phone] * ECG 12 lead (09/24/2024 3:15 PM EST) Narrative Malena Balbuena MD - 09/24/2024 3:15 PM EST RBBB 86 BPM Malena Balbuena MD ECG ORDERABLES Final Resu lt * SARS-CoV-2 RNA, Influenza A/B, and RSV RNA, Ql NAAT (09/24/2024 2:06 PM EST) Influenza A PCR NEGATIVE Negative [facility] Influenza B PCR NEGATIVE Negative [facility] Resp Syncy Virus RNA Qual PCR NEGATIVE Negative [facility] SARS COV2 PCR NEGATIVE Negative [facility] Comment:All test results mus [...] use by authorized laboratories.Testing performed on the [employer] GeneXpert utilizingreal-time RT-PCR.All SARS CoV2 and positive influenza A/B results arereported to [facility]. 09/24/2024 2:06 PM EST 09/24/2024 2:10 PM EST us Generic External Data Provider LAB MICROBIOLOGY - GENERAL ORDERABLES Final Result [facility] [address] [place] [phone] * B Type Natriuretic Peptide (BNP) (09/24/2024 2:06 PM EST) B Type Natriuretic Peptide 19 <100 pg/mL [facility] Comment:For those patients w ho are being treated with Natrecor(nesiritide, recombinant BNP), BNP testing should beperformed at least two hours post treatment in order toensure that only endogenous levels of BNP are detected. 09/24/2024 2:06 PM EST 09/24/2024 2:10 PM EST us Generic External Data Provider LAB BLOOD ORDERAB LES Final Result Performing Organization Address City/[facility]/ZIP Co de Phone Number [facility] [address] [place] [phone] * Magnesium (09/24/2024 2:06 PM EST) Magnesium 2.2 1.6 - 2.6 mg/dL [facility] LABS 09/24/2024 2:06 PM EST 09/24/2024 2:10 PM EST us Generic External Data Provider LAB BLOOD ORDERAB LES Final Result Performing Organization Address [facility]/ZIP Co de Phone Number [facility] [address] [place] [phone] * Hepatic Function Panel (09/24/2024 2:06 PM EST) Bilirubin, Total 0.5 0.0 - 1.0 mg/dL [facility] Bilirubin, Direct 0.1 0.0 - 0.5 mg/dL [facility] Aspartate Amino Transferase 25 5 - 37 U/L [facility] Alanine Aminotransferase 36 0 - 40 U/L [facility] Total Protein 7.9 6.5 - 8.0 g/dL [facility] Albumin Level 4.5 3.5 - 5.0 g/dL [facility] Alkaline Phosphatase 81 39 - 117 U/L [facility] 09/24/2024 2:06 PM EST 09/24/2024 2:10 PM EST us Generic External Data Provider LAB BLOOD ORDERAB LES Final Result Performing Organization Address City/[facility]/ZIP Co de Phone Number [facility] [address] [place] [phone] * (ABNORMAL) Basic Metabolic Panel (09/24/2024 2:06 PM EST) Only the most recent of2 resultswithin the time period is included. Sodium 140 135 - 145 mmol/L [facility] Potassium 4.5 3.3 - 5.1 mmol/L [facility] Chloride 109(H) 96 - 108 mmol/L [facility] Carbon Dioxide 25 22 - 29 mmol/L [facility] Anion Gap 11(L) 12 - 20 [facility] Urea Nitrogen (BUN) 10 9 - 16 mg/dL [facility] Creatinine, Serum 1.00 0.5 - 1.4 mg/dL [facility] Creatinine Clr Calc Pharmacy 140.0 [facility] Comment:eGFR (calculated fro m the MDRD study equation) and eCrCl(calculated from the Cockcroft-Gault equation) are based ondifferent parameters and may not yield comparable results.If eCrCl result is absurd, please check patient'sheight/weight. Estimated Glomerular Filt Rate >60 [facility] Comment:Chronic Kidney Disea se: Estimated GFR < 60 mL/min/1.36h4Ojqwjw Kidney Disease: Estimated GFR < 15 mL/min/1.73m2 Glucose 84 60 - 115 mg/dL [facility] Calcium 9.1 8.4 - 10.2 mg/dL [facility] 09/24/2024 2:06 PM EST 09/24/2024 2:10 PM EST us Generic External Data Provider LAB BLOOD ORDERAB LES Final Result [facility] [address] [place] [phone] * XR Chest 2 Views (09/24/2024 1:24 PM EST) Anatomical Region Laterality Modality Chest Radiographic Liz ging 09/24/2024 1:24 PM EST Narrative 09/24/2024 2:07 PM EST ? [place] [facility] ?[address] ?[place] [address] ?XRay Report ? Signed ? Patient: Aparicio,Jose W ?MR#: [id number] ?? 9 ? : 1990 ?Acct:[id number] ? Age/Sex: 34 / M ?ADM Date: 09/24/24 ? Loc: HO.ED ? Attending Dr: ? Ordering Physician: Susie Borden ?? Date of Service: 09/24/24 ?? Procedure(s): XR chest 2V ?? Accession Number(s): [id number] ? cc: [facility]; Susie Borden ? EXAMINATION: ?? XR CHEST [...] DD/ 1324 ? TD/TT: 09/24/24 1358 ? Theatrical Performer: ? Procedure Note Gwendolyn Najera - 09/24/[address] [address] XRay Report Signed Patient: Jose Aparicio WMR#: [id number] 9 : 1990Acct:[id number] Age/Sex: 34 / MADM Date: 09/24/24 Loc: HO.ED Attending Dr: Ordering Physician: Susie Borden Date of Service: 09/24/24 Procedure(s): XR chest 2V Accession Number(s): [id number] cc: [facility]; Susie Borden EXAMINATION: XR CHEST CLINICAL INFORMATION: [...] Jacques Mcclelland MD 09/24/2024 02:04 PM EST RP Dictated By: Jacques Mcclelland MD Signed By: <Electronically signed by Jacques Mcclelland MD in OV> 09/24/24 1404 DD/ 1324 TD/TT: 09/24/24 1358 Theatrical Performer: [facility] External Provider IMG XR PROCEDURES Final Result [...] 82 Urine 09/20/2024 3:29 PM EST Leana Isaacs REPACK ROOM WORKER POINT OF CARE TEST ENTER/EDIT ORDERABLES Final Result * Hemoglobin A1c (09/20/2024 3:29 PM EST) Hemoglobin A1c 5.4 <6.0 % [facility] Comment:Hemoglobin A1C Refer ence Range Adults: 4.8 - 6.0 % Non diabetic: < 6.0 % Goal: < 7.0 %Additional Action Suggested: > 8.0 %Note: Hemoglobin A1c results are invalid for patients with abnormal amounts of HbF. Blood transfusions may impact the HbA1c concentration in the patient sample. Estimated Average Glucose 108 mg/dL [facility] Comment:eAG = Estimated ave rage glucose which is %A1C expressed asaverage glucose, using the formula of the O6H-FqranoqFniicde Glucose study (ADAG), Diabetes Care, Vol.31,#8,2007 Blood Venous blood specimen / Unknown 09/20/2024 3:29 PM EST 09/20/2024 4:00 PM EST [facility] ORDER[facility]LES Final Res ult Performing Organization Address [facility] de Phone Number [facility] [address] [place] [phone] * Albumin, Random Urine W/Creatinine (09/20/2024 3:19 PM EST) Creatinine, Urine 180.60 mg/dL [facility] Microalbumin Urine 23.0 mg/L [facility] Microalbum Creatinine Ratio Ur 12.7 <30 ug/mg cr [facility] Comment:Albumin/Creatinine R atio Reference Ranges: Normal: < 30 ug/mg creatinine Microalbuminuria: 30 - 300 ug/mg creatinineClinical Albuminuria: > 300 ug/mg creatinine Urine (Urine, Random) 09/20/2024 3:19 PM EST 09/20/2024 4:42 PM EST [facility] LAB URINE ORDERABLES Final Res ult Performing Organization Address [facility] Co de Phone Number [facility] [address] [place] [phone] * Chlamydia/N. Gonorrhoeae RNA, TMA, Urogenitial (09/20/2024 3:19 PM EST) CT PCR NOT DETECTED Not Detect. [facility] Comment:A not detected test result [...] psychologicalconsequences. NG PCR NOT DETECTED Not Detect. [facility] Comment:A not detected test result [...] PM EST 09/20/2024 4:42 PM EST Narrative [facility] - 09/21/2024 1:19 PM EST Urine us Leana Isaacs [facility] LAB MICROBIOLOGY - GENERAL ORD ERABLES Final Result [facility] [address] [place] [phone] * TSH W/Reflex to FT4 (09/20/2024 12:59 PM EST) TSH reflex Free T4 1.38 0.32 - 4.0 uIU/mL [facility] Blood Venous blood specimen / Unknown 09/20/2024 12:59 PM EST 09/20/2024 4:00 PM EST [facility] LAB BLOOD ORDERABLES Final Res ult Performing Organization Address [facility] Co de Phone Number [facility] [address] [place] [address] [phone] * (ABNORMAL) Lipid Panel, Standard (09/20/2024 12:59 PM EST) Triglycerides 219(H) <150 mg/dL [facility] Comment:Desirable Triglyceri de: less than 150 mg/dLBorderline High Triglyceride 150-199 mg/dLHigh Triglyceride: 200-499 mg/dLVery High Triglyceride: greater than or equal to 5OO mg/dL Cholesterol 163 <200 mg/dL [facility] Comment:Desirable Cholestero l: less than 200 mg/dLBorderline High Cholesterol: 200-239 mg/dLHigh Cholesterol: greater than 239 mg/dL LDL Cholesterol Calculated 90 <100 mg/dL [facility] Comment:Desirable LDL: less than 100 mg/dLNear Optimal/Above Optimal LDL: 110- 129 mg/dLBorderline High LDL: 130-159 mg/dLHigh LDL: 160-189 mg/dLVery High LDL: greater than or equal to 190 mg/dL HDL Cholesterol 30(L) >40 mg/dL [facility] Comment:Desirable HDL: great er than 40 mg/dL Note: This HDL assay may give artificially low results in patients with liver disease. Blood Venous blood specimen / Unknown 09/20/2024 12:59 PM EST 09/20/2024 4:00 PM EST [facility] LAB BLOOD ORDERABLES Final Res ult Performing Organization Address [facility] Co de Phone Number [facility] [address] [place] [phone] * HEPATITIS C AB W/REFL TO HCV RNA, QN, PCR (07/28/2021 10:04 AM EST) HEPATITIS C ANTIBODY NON-REACT MARLA NON-REACT MARLA [facility] INDEX 0.37 <1.00 [facility] Comment: ?? HCV antibody was non-reactive. There is no laboratory ?? evidence of HCV infection. ?? In most cases, no further action is required. However, if recent HCV exposure is suspected, a test for HCV RNA (test code 42399) is suggested. ?? For additional information please refer to http://[employer]Chor[employer].Bacterioscan/faq/YAT86y6 (This link is being provided for informational/ educational purposes only.) ?? 07/28/2021 10:0 4 AM EST [employer] HISTORICAL/NON ORDERABLE LABS Final Result [facility] [address] * HIV 1/2 ANTIGEN/ANTIBODY,FOURTH GENERATION W/RFL [...] ? For additional information please refer to http://SocialChorus.Bacterioscan/faq/BSX386 (This link is being provided for informational/ educational purposes only.) ? The performance of this assay has not been clinically validated in patients less than 2 years old. ?? 07/28/2021 10:0 4 AM EST Meg Pires REPACK ROOM WORKER LAB BLOOD ORDERABLES Final Res ult [facility] [address] from Last 3 Months or Most Recently Relevant to Health Maintenance Insurance Care Teams Armored Car Guard And Driver Relationship Specialty Start Date End Date Leana Isaacs FNP [address] [place] [phone] PCP - General Family Medicine 08/21/24
--- OUTSIDE RECORDS SUMMARY | 2024-11-03 21:56 | XMS_ITS | Encounter Summary ---
Author Organization [employer] Address [address] [place] [address] Care Team Providers Care Hearing Impaired Itinerant Teacher Name Role Phone Missy Wan Primary Care Provider [phone] Nolan Kat Primary Care Provider Unavail able Mahsa Wahl MD Primary Care Provide r Leana Isaacs Primary Care Provider Reason for Referral * Imaging (Routine) - Closed Specialty Diagnoses / Procedures Referred By Contac t Referred To Contact Diagnoses Left groin pain Non-recurrent unilateral inguinal hernia without obstruction or gangrene Procedures US Pelvis Limited Donovan Allred FNP [facility] [address] [place] [address] Phone: tel: fax: Referral ID Status Reason Start Date Expiration Date Visits Re quested Visits Authorized [id number] Closed 12/13/2022 06/11/2023 1 1 Encounter Details Date Type Department Care Team (Late st Contact Info) Description 12/13/2022 Orders Only [facility] [address] [place] [address] Donovan Allred FNP Left groin pain (Primary [...] 9:30 AM EST Office Visit [facility] [address] [place] [phone] Leana Isaacs FNP [address] [place] [address] Scheduled Orders Name Type Priority Associated Diagnoses Orde r Schedule US Pelvis Limited Imaging Routine Left groin pain Non-recurrent unilateral inguinal hernia without obstruction or gangrene Expected: 12/13/2022, Expires: 12/14/2023 documented as of this encounter Visit Diagnoses Diagnosis Left groin pain- Primary Abdominal pain, left lower quadrant Non-recurrent unilateral inguinal hernia without obstruction or gangrene documented in this encounter Care Teams Hearing Impaired Itinerant Teacher Relationship Specialty Start Date End Date Missy Wan FNP [address] [place] [phone] PCP - General Family Medicine 12/06/22 02/07/23 Nolan Kat AGNP [address] [place] [address] PCP - General Family Medicine 02/08/23 05/11/23 Mahsa Wahl MD [address] [place] [phone] PCP - General Internal Medicine 05/12/23 07/23/24 Leana Isaacs FNP [address] [place] [phone] PCP - General Family Medicine 08/21/24 documented as of this encounter
--- OUTSIDE RECORDS SUMMARY | 2024-11-03 21:56 | XMS_ITS | Clinical Summary ---
Author Organization [employer] [facility] it Address [address] [place] [address] Care Team Providers Care Hospice Community Liaison Name Role Phone Unavailable Primary Care Provider [...]
--- OUTSIDE RECORDS SUMMARY | 2024-11-03 21:56 | XMS_ITS | Encounter Summary ---
Author Organization [employer] Address [address] [place] [address] Care Team Providers Care Media Services Director Name Role Phone Leana Isaacs SCREWDOWN OPERATOR Primary Care Provider [phone] Encounter Details Date Type Department Care Team ( Contact Info) Description 11/03/2024 Orders Only GENERIC EXTERNAL DATA [...] Description 11/06/2024 9:30 AM EST Office Visit [facility] [address] [place], [place] [phone] Leana Isaacs FNP [address] [place], [place] [phone] documented as of this encounter Procedures Procedure Name Priority Date/Time Associated Diagnosis Comments CT ABDOMEN PELVIS WO CONTRAST Routine 11/03/2024 9:22 PM EST CBC WITH AUTO DIFFERENTIAL Routine 11/03/2024 7:24 PM EST URINALYSIS WITH REFLEX MICROSCOPIC Routine 11/03/2024 7:24 PM EST APTT Routine 11/03/2024 7:24 PM EST PROTHROMBIN TIME-INR Routine 11/03/2024 7:24 PM EST COMPREHENSIVE METABOLIC PANEL Routine 11/03/2024 7:24 PM EST documented in this encounter Results * CT Abdomen Pelvis w/o Contrast (11/03/2024 9:22 PM EST) Anatomical Region Laterality Modality Body, Pelvis, Abdomen Computed T omography 11/03/2024 9:22 PM EST Narrative 11/03/2024 9:23 PM EST ? [facility] ?[address] ?[place] [address] ? CT Scan Report ? Signed ? Patient: Aparicio,Jose W ?MR#: [id number] ?? 9 ? : 1990 ?Acct:[id number] ? Age/Sex: 34 / M ?ADM Date: 11/03/24 ? Loc: HO.ED ? Attending Dr: ? Ordering Physician: Mau Figueroa ?? Date of Service: 11/03/24 ?? Procedure(s): CT abdomen pelvis wo IV con ?? Accession Number(s): [id number] ? cc: Mau Figueroa; Leana Isaacs SCREWDOWN OPERATOR ? Report Number: ?? [id number]: Total DLP = ??878.00 mGy-cm ? CLINICAL [...] by Boby Garcia MD in OV> ? 11/03/243 ? DD/ 21 ? TD/TT: 11/03/242121 ? Automation Consultant: ? Procedure Note Gwendolyn Najera - 11/03/[address] [place] [address] [address] Scan Report Signed Patient: Jose Aparicio WMR#: [id number] 9 : 1990Acct:[id number] Age/Sex: 34 / MADM Date: 11/03/24 Loc: HO.ED Attending Dr: Ordering Physician: Mau Figueroa Date of Service: 11/03/24 Procedure(s): CT abdomen pelvis wo IV con Accession Number(s): [id number] cc: Mau Figueroa; Leana Isaacs SCREWDOWN OPERATOR Report Number: [id number]: Total DLP = 878.00 mGy-cm CLINICAL HISTORY: [...] in OV> 11/03/242122 DD/ 21 TD/TT: 11/03/242121 Automation Consultant: [facility] External Provider IMG CT PROCEDURES Final Result * Partial Thromboplastin Time, Activated (APTT) (11/03/2024 7:24 PM EST) Partial Thromboplastin Time 33.8 26.0 - 36.8 SEC [facility] Comment:For information rega rding the monitoring of direct thrombininhibitors, please refer to Pharmacy. 11/03/2024 7:24 PM EST 11/03/2024 7:28 PM EST Generic External Data Provider LAB BLOOD ORDERAB LES Final Result Performing Organization Address [facility] Co de Phone Number [facility] [address] [place] [phone] * Prothrombin Time-INR (11/03/2024 7:24 PM EST) Prothrombin Time 11.9 10.9 - 12.4 SEC [facility] INTERNATIONAL NORM RATIO 1.0 0.9 - 1.1 [facility] Comment:INTERNATIONAL NORMAL IZED RATIO (INR) [...] ORDERAB LES Final Result Performing Organization Address [facility] Co de Phone Number [facility] [address] [place] [phone] * Urinalysis w/reflex microscopic (11/03/2024 7:24 PM EST) Color Urine Yellow [facility] Appearance Urine Clear [facility] PH 5.5 5.0 - 9.0 [facility] Glucose Urine UA Negative Negative mg/dL [facility] Urine Blood Negative Negative [facility] Specific [place] - Urine <=1.005 1.005 - 1.025 [facility] Urine Protein Negative Neg-Trace mg/dL [facility] Urine Ketones Negative Negative mg/dL [facility] Nitrite Urine Negative Negative [facility] Leukocyte Esterase Urine Negative Negative [facility] 11/03/2024 7:24 PM EST 11/03/2024 7:28 PM EST Narrative [facility] - 11/03/2024 7:48 PM EST [id number], [employer] us Generic External Data Provider LAB URINE ORDERAB LES Final Result [facility] [address] [place] [phone] * (ABNORMAL) Comprehensive Metabolic Panel (11/03/2024 7:24 PM EST) Sodium 140 135 - 145 mmol/L [facility] Potassium 3.4 3.3 - 5.1 mmol/L [facility] Chloride 109(H) 96 - 108 mmol/L [facility] Carbon Dioxide 21(L) 22 - 29 mmol/L [facility] Anion Gap 13 12 - 20 [facility] Urea Nitrogen (BUN) 13 9 - 16 mg/dL [facility] Creatinine, Serum 0.90 0.5 - 1.4 mg/dL [facility] Creatinine Clr Calc Pharmacy 151.3 [facility] Comment:eGFR (calculated fro m the MDRD study equation) and eCrCl(calculated from the Cockcroft-Gault equation) are based ondifferent parameters and may not yield comparable results.If eCrCl result is absurd, please check patient'sheight/weight. Estimated Glomerular Filt Rate >60 [facility] Comment:Chronic Kidney Disea se: Estimated GFR < 60 mL/min/[id number] Kidney Disease: Estimated GFR < 15 mL/min/1.73m2 Glucose 107 60 - 115 mg/dL [facility] Calcium 8.8 8.4 - 10.2 mg/dL [facility] Bilirubin, Total 0.9 0.0 - 1.0 mg/dL [facility] Aspartate Amino Transferase 46(H) 5 - 37 U/L [facility] Alanine Aminotransferase 41(H) 0 - 40 U/L [facility] Total Protein 7.3 6.5 - 8.0 g/dL [facility] Albumin Level 4.3 3.5 - 5.0 g/dL [facility] Alkaline Phosphatase 80 39 - 117 U/L [facility] 11/03/2024 7:24 PM EST 11/03/2024 7:28 PM EST us Generic External Data Provider LAB BLOOD ORDERAB LES Final Result [facility] [address] [place] [phone] * (ABNORMAL) CBC auto differential (11/03/2024 7:24 PM EST) White Blood Count 14.5(H) 4.8 - 10.8 X10*3/uL [facility] Red Blood Count 5.13 4.60 - 5.80 X10*6/uL [facility] Hemoglobin 15.3 14.0 - 18.0 g/dl [facility] Hematocrit 43.8 42.0 - 52.0 % [facility] Mean Corpuscular Volume 85.4 80.0 - 98.0 fL [facility] Mean Corpuscular Hemoglobin 29.8 27.0 - 33.0 pg [facility] Mean Corpuscular HGB Conc 34.9 31.0 - 36.0 g/dl [facility] Red Cell Distribution Width 13.4 11.0 - 16.0 % [facility] Platelet Count 329 160 - 400 X10*3/uL [facility] Mean Platelet Volume 8.1(L) 9.4 - 12.4 fL [facility] Neutrophils Percent Auto 61.3 45 - 73 % [facility] Imm Gran Pct Auto 0.4 0.0 - 0.4 % [facility] Lymphocytes Percent Auto 30.9 20 - 40 % [facility] Monocytes Percent Auto 4.4 2 - 11 % [facility] Eosinophils Percent Auto 2.6 0 - 4 % [facility] Basophils Percent Auto 0.4 0 - 2 % [facility] NRBC Pct Auto 0.0 0.0 - 0.2 /100WBC [facility] Neutrophils Absolute Auto 8.9(H) 2.0 - 8.3 x10*3/uL [facility] Imm Gran Abs Auto 0.06(H) 0.00 - 0.03 X10*3/uL [facility] Lymphocytes Absolute Auto 4.5 1.2 - 4.9 X10*3/uL [facility] Monocytes Absolute Auto 0.6 0.1 - 1.2 X10*3/uL [facility] Eosinophils Absolute Auto 0.4 0.0 - 0.4 X10*3/uL [facility] Basophils Absolute Auto 0.1 0.0 - 0.2 X10*3/uL [facility] NRBC Abs Auto 0.000 0.0 - 0.012 X10*3/uL [facility] 11/03/2024 7:24 PM EST 11/03/2024 7:28 PM EST us Generic External Data Provider LAB BLOOD ORDERAB LES Final Result [facility] [address] [place] [phone] documented in this encounter Visit Diagnoses Not on filedocumented in this encounter Additional Health Concerns Assessment Noted Time PHQ-9 Depression Total Score: 13 025 2:01 PM EST documented as of this encounter Care Teams Media Services Director Relationship Specialty Start Date End Date Leana Isaacs FNP [address] [place] [phone] PCP - General Family Medicine 08/21/24 documented as of this encounter
[2024-11-03] MEDS: levoFLOXacin 500 MG TABLET PO (22:02)
[2024-11-03] MEDS: traMADoL HCL 50 MG TABLET PO (22:02)
[2024-11-03] MEDS: Docusate Sodium 100 MG CAPSULE 200 MG PO (22:02)
[2024-11-03] MEDS: metroNIDAZOLE 500 MG TABLET PO (22:02)
[2024-11-03 22:06] VITALS: BP 134/82; PULSE 86; RESP 16; TEMP 36.6; O2SAT 97
== END 2024-11-03 22:06 | disposition home or self-care (01) ==
PROVIDERS: Physician Assistant; Emergency Provider Emergency Medicine; PCP Nurse Practitioner Family
DX: K57.32 Diverticulitis of large intestine without perforation or abscess without bleeding (principal); R10.32 Left lower quadrant pain; K59.00 Constipation, unspecified; F17.210 Nicotine dependence, cigarettes, uncomplicated; Z79.899 Other long term (current) drug therapy
CPT/HCPCS: 36415; 74176; 80053; 81003; 85025; 85610; 85730; 99283; 99284

== ENCOUNTER → 2024-11-03 19:59 | Outpatient (BNV) | payer MEDICAID, SELFPAY | PROVIDERS: Emergency Provider Emergency Medicine; PCP Nurse Practitioner Family; Visit Provider Radiology Diagnostic Radiology | DX: K57.92 Diverticulitis of intestine, part unspecified, without perforation or abscess without bleeding (principal) | CPT/HCPCS: 74176 ==

== ENCOUNTER 2025-01-31 10:47 | Outpatient (AMB) | payer MEDICAID, SELFPAY ==
--- NOTE | 2025-01-31 11:07 | HO.NEPHOV ---
Vital Signs 01/31/25 11:09 Height 5 ft 10 in Weight 230 lb BMI 33.0 BP 118/70 Blood Pressure Location Rt brachial Position Sitting Pulse 92 Pulse Source Pulse Oximeter Pulse Oximetry (%) 97 Oxygen Delivery Method Room Air Intake Visit Reasons: 3 MO FU-[facility] Stamp Redemption Clerk Required: No Accompanied by: Self / Same As Patient Allergies No Known Allergies Allergy (Verified 01/31/25 11:09) HPI Comments Details: Jose is a 34 year old seen for F/U of hypertension. According to him, he has been having hypertension for about ten years. Initially he had not been on medications but currently compliant with medications for 5-7 years. He tries to have low sodium diet but not very complaint. He has a very strong family h/o hypertension. He has lost weight. He has H/O cocaine use in the past but not for 10 yrs. He has no DM or vascular disease. He has never been tested for ROX. He has ho H/O hypothyroidism, hypokalemia, hypercalcemia. He has no H/O CAD, CVA, CHF, PAD, VIPUL or carotid disease. He is a smoker. [facility] Medical History Erectile dysfunction Gastroesophageal reflux disease Anxiety and depression Recurrent major depressive disorder Obesity Mild intermittent asthma without complication Hypertriglyceridemia Asthma Tobacco use disorder Diverticulitis of colon with perforation Acute diverticulitis Morbid obesity Surgical History Hx of tonsillectomy Family History (Updated 11/01/24 @ 15:15 by Portia Valentin MA) Brother Hypertension Mother Cancer Hypertension Diabetes Father Cancer Diabetes Hypertension Social History Household Members: Spouse Housing: Apartment Do you presently have visiting nurse or other home services: No Patient Tobacco Use Status: Current everyday Tobacco user Tobacco use type: Cigarette Substance Use Type: Marijuana service: No Review of Systems Const All systems reviewed & are unremarkable except as noted in HPI and below Physical Exam Vital Signs: Last Vital Signs Pulse 92 01/31/25 11:09 BP 118/70 01/31/25 11:09 Pulse Ox 97 01/31/25 11:09 Oxygen Delivery Method Room Air 01/31/25 11:09 BMI result Body Mass Index 33.0 Const General: comfortable and no acute distress Orientation/consciousness: patient oriented x3 HEENT Head: Yes normocephalic Mouth: Normal oral and palatal mucosa present Eyes EOM: EOMs intact bilaterally Neck Neck: Yes supple Resp Auscultation: clear to auscultation bilaterally Cardio Jugular venous distension: no JVD Rate: regular rate GI Palpation (GI): Soft to palpation Auscultation: normal bowel sounds General: Yes no CVA tenderness Back/Spine/Pelvis Back: no CVA tenderness Skin General skin exam: no rashes or lesions noted Neuro General: patient oriented x3 and moves all extremities Extrem General: Yes no pedal edema Results Reviewed Nephrology Results: Hgb 15.3 g/dl (14.0-18.0) 11/03/24 WBC 14.5 X10*3/uL (4.8-10.8) H 11/03/24 Plt Count 329 X10*3/uL (160-400) 11/03/24 Sodium 140 mmol/L (135-145) 11/03/24 Potassium 3.4 mmol/L (3.3-5.1) 11/03/24 Chloride 109 mmol/L (96-108) H 11/03/24 Carbon Dioxide 21 mmol/L (22-29) L 11/03/24 BUN 13 mg/dL (9-16) 11/03/24 Creatinine 0.90 mg/dL (0.5-1.4) 11/03/24 Calcium 8.8 mg/dL (8.4-10.2) 11/03/24 Urine Protein Negative mg/dL (Neg-Trace) 11/03/24 Urine Creatinine 180.60 mg/dL 09/20/24 Assessment & Plan Assessment & Plan (1) Hypertension: Code(s): I10 - Essential (primary) hypertension Category: Medical Qualifiers: Hypertension type: primary hypertension Qualified Code(s): I10 - Essential (primary) hypertension Plan Low sodium diet; Needs more weight loss Serum potassium and renal function normal; No proteinuria Shall continue current medication for now All his recent medical records reviewed Answered all questions; F/U given Orders: Orders Cortisol Random 6 Months I10 - Essential (primary) hypertension Protein Creatinine Ratio, Ur 6 Months I10 - Essential (primary) hypertension Creatinine 6 Months I10 - Essential (primary) hypertension Electrolytes 6 Months I10 - Essential (primary) hypertension Calcium 6 Months I10 - Essential (primary) hypertension TSH reflex Free T4 6 Months I10 - Essential (primary) hypertension Blood Urea Nitrogen 6 Months I10 - Essential (primary) hypertension Coding Level of Care Code Est Pt Level 4 (04038) Diagnoses Primary hypertension I10 Hypertension type: primary hypertension
[2025-01-31 11:09] VITALS: BP 118/70; PULSE 92; O2SAT 97; BMI 33.0
--- OUTSIDE RECORDS SUMMARY | 2025-01-31 11:36 | XMS_ITS | Encounter Summary ---
Author Organization [employer] Address [address] [place] [address] Care Team Providers Care Shuttle Operator Name Role Phone Leana Isaacs Primary Care Provider [phone] Reason for Visit * Reason Onset Date Comments Appointment Request 09/25/2024 Encounter Details Date Type Department Care Team ([facility] Contact Info) Description 09/25/[address] [facility] [address] [place] [address] Leana Isaacs FNP [address] [place] [address] Appointment Request Social History Tobacco Use Types [...] requesting schedule f/u b/p appt from a [facility] recent visit. [phone] documented in this encounter Plan of Treatment Upcoming Encounters Date Type Department Care Team (Late st Contact Info) Description 02/21/2025 11:15 AM EDT Office Visit [facility] [address] [place] [address] Leana Isaacs FNP [address] [place] [address] documented as of this encounter Visit Diagnoses Not on filedocumented in this encounter Additional Health Concerns Assessment Noted Time PHQ-9 Depression Total Score: 13 025 2:01 PM EST documented as of this encounter Care Teams Shuttle Operator Relationship Specialty Start Date End Date Leana Isaacs FNP [address] [place] [address] PCP - General Family Medicine 08/21/24 documented as of this encounter
== END 2025-01-31 11:30 | disposition home or self-care (01) ==
LOC: HO.HKA 10:48
PROVIDERS: PCP Nurse Practitioner Family; Visit Provider Internal Medicine Nephrology
DX: I10 Essential (primary) hypertension (principal)
CPT/HCPCS: 99214

== ENCOUNTER → 2025-01-31 10:47 | Outpatient (BNVA) | payer MEDICAID, SELFPAY | PROVIDERS: PCP Nurse Practitioner Family; Visit Provider Internal Medicine Nephrology | DX: I10 Essential (primary) hypertension (principal) | CPT/HCPCS: 99212 ==

== ENCOUNTER 2025-02-24 09:05 | Outpatient (REF) | payer MEDICAID, SELFPAY ==
--- OUTSIDE RECORDS SUMMARY | 2025-02-24 09:45 | XMS_ITS | Encounter Summary ---
Author Organization [employer] Address [address] [place] [address] Care Team Providers Care Instruction Dean Name Role Phone Leana Isaacs Primary Care Provider Reason for Visit * Reason Onset Date Comments Appointment Request 09/25/2024 Encounter Details Date Type Department Care Team ([facility] Contact Info) Description 09/25/2024 Telephone [facility] [address] [place] [address] Leana Isaacs FNP [address] [place] [address] Appointment Request Social History Tobacco Use Types [...] requesting schedule f/u b/p appt from a [facility] recent visit. [phone] documented in this encounter Plan of Treatment Upcoming Encounters Date Type Department Care Team (Late st Contact Info) Description 02/28/2025 11:15 AM EDT Office Visit [facility] [address] [place] [address] Leana Isaacs FNP [address] [place] [address] documented as of this encounter Visit Diagnoses Not on filedocumented in this encounter Additional Health Concerns Assessment Noted Time PHQ-9 Depression Total Score: 13 025 2:01 PM EST documented as of this encounter Care Teams Instruction Dean Relationship Specialty Start Date End Date Leana Isaacs FNP [address] [place] [address] PCP - General Family Medicine 08/21/24 documented as of this encounter
[2025-02-24 11:59] LABS: Alanine Aminotransferase 22 U/L (0-40); Albumin Level 4.9 g/dL (3.5-5.0); Alkaline Phosphatase 73 U/L (39-117); Anion Gap 14 (12-20); Aspartate Amino Transferase 25 U/L (5-37); Bilirubin Total 0.4 mg/dL (0.0-1.0); Blood Urea Nitrogen 15 mg/dL (9-16); Carbon Dioxide 23 mmol/L (22-29); Chloride 107 mmol/L (96-108); Estimated Glomerular Filt Rate > 60; Glucose Random 96 mg/dL (60-115); Iron 47 mcg/dL (45-160); Magnesium 2.2 mg/dL (1.6-2.6); Percent Iron Saturation 18 % (15-50); Potassium 4.5 mmol/L (3.3-5.1); Sodium 139 mmol/L (135-145); Total Iron Binding Capacity 261 mcg/dL (228-428); Total Protein 7.3 g/dL (6.5-8.0); Unsaturated Iron Binding 214 ug/dL
[2025-02-24 12:01] LABS: Ferritin 268 ng/mL (20-250); Vitamin D 25-OH Total 47.3 ng/mL (>30)
[2025-02-24 12:22] LABS: Vitamin B12 405 pg/mL (200-900)
[2025-02-28 18:49] LABS: Testosterone, Free 68.9 pg/mL (35.0-155.0); Testosterone, Total 420 ng/dL (250-1100)
== END 2025-02-24 09:06 | disposition home or self-care (01) ==
LOC: HO.HHCL 09:05
PROVIDERS: PCP Nurse Practitioner Family; Visit Provider Nurse Practitioner Family
DX: R42 Dizziness and giddiness (principal); N52.9 Male erectile dysfunction, unspecified
CPT/HCPCS: 36415; 80053; 82306; 82607; 82728; 82746; 83540; 83735; 84402; 84403